=== PATIENT | male | born 1940 | race Caucasian/White ===

== ENCOUNTER 2017-02-14 12:38 | Inpatient (IN) | payer MEDICARE ==
[~2017-02-14] VITALS: Ht 177.8 cm; Wt 70.0 kg
[2017-02-14 12:41] VITALS: BP 130/88; PULSE 120; RESP 20; TEMP 98.4; O2SAT 97
--- NOTE | 2017-02-14 12:49 | PD ---
Physical Exam Time Seen by Provider: 12:48 Narrative 76 y/o male with 2 days of generalized body shakes, L sided ear/facial pain for 3 weeks. Vital signs reviewed. seen at triage desk. Awaiting bed placement. Data Data Last Documented VS Vital Signs Date Time Temp Pulse Resp B/P Pulse Ox O2 Delivery O2 Flow Rate FiO2 02/14/17 12:41 98.4 120 20 130/88 97 Room Air MDM Medical Record Reviewed: Yes Supervised Visit with MAGAN: Rich Philip Feb 14, 2017 12:49
[2017-02-14] MEDS ORDERED: METF500T PO (12:59)
[2017-02-14] MEDS ORDERED: FINA5TAB2 PO (12:59)
[2017-02-14] MEDS ORDERED: LISI10TA3 PO (12:59)
[2017-02-14] MEDS ORDERED: SIMV10TA PO (12:59)
[2017-02-14] MEDS ORDERED: SODIUM CHLORIDE 0.9% FLUSH 10 ML FLUSH IVF PRN (13:15)
[2017-02-14] MEDS ORDERED: SODIUM CHLORID 0.9% 500 ML INJ 500 ML IV ONE (13:15)
--- NOTE | 2017-02-14 13:17 | PD ---
HPI Chief Complaint: Medical Clearance Time Seen by Provider: 13:12 Travel History International Travel<30 days: No Contact w/Intl Traveler<30days: No Traveled to known affect area: No History of Present Illness HPI 76-year-old male presents to the emergency department for evaluation of "shakiness" that started yesterday. Patient states he cannot quit shaking. He states he has never had this happen before. His daughters at bedside. She states she's been treated with multiple antibiotics over the last few months for multiple infections. He had infection in the right ear, left ear, lung infection, urinary tract infection. She states that he was recently treated for otitis externa the left ear with antibiotics. He states he recently follow with Dr. Segundo the infection was gone. She reports left-sided facial pain and submandibular pain and swelling. He denies any shortness of breath. He states he has some intermittent sharp left-sided chest pain that lasts for a minute and goes away over the past 2 days. He denies any chest pain this time. No abdominal pain. No nausea, vomiting, diarrhea. He denies any urinary symptoms. He has history of hypertension, hyperlipidemia, diabetes. Patient denies any other complaints at this time. He states he may have run a fever over the past few days due to chills, but denies any at this time. PFSH Past Medical History Cancer: Yes (SKIN) High Cholesterol: Yes Diabetes: Yes Patient Takes Glucophage: Yes (METFORMIN) Genitourinary: Yes (BPH) Hypertension: Yes Past Surgical History Other Surgery: Yes (SKIN CA REMOVAL) Social History Alcohol Use: No Tobacco Use: No Substance Use: No Allergies-Medications (Allergen,Severity, Reaction): Coded Allergies: No Known Allergies (Unverified , 02/14/17) Reported Meds & Prescriptions Reported Meds & Active Scripts Active Reported Simvastatin 10 Mg Tab 10 Mg PO DAILY Finasteride 5 Mg Tab 5 Mg PO DAILY Do not crush. Lisinopril 10 Mg Tab 10 Mg PO DAILY Metformin (Metformin HCl) 500 Mg Tab 500 Mg PO BIDPC With meals Review of Systems Except as stated in HPI: all other systems reviewed are Neg Physical Exam Narrative GENERAL: Well-nourished, well-developed male patient, ambulatory. Afebrile. SKIN: Focused skin assessment warm/dry. HEAD: Normocephalic. Atraumatic. Patient has induration to the submandibular region. This is tender with palpation of the palate. ENT: Mucosa pink and moist. No erythema or exudates. No uvular edema. No uvular , palatal, or tonsillar deviation. Airway patent. Nasal turbinates appear normal without nasal blood, purulent drainage or septal hematoma. Left ear canal is mildly swollen with purulent drainage. I'm unable to visualize tympanic membrane. EYES: No scleral icterus. No injection or drainage. NECK: Supple, trachea midline. No JVD or lymphadenopathy. CARDIOVASCULAR: Regular rate and rhythm without murmurs, gallops, or rubs. RESPIRATORY: Breath sounds equal bilaterally. No accessory muscle use. Lungs sounds are clear to auscultation. GASTROINTESTINAL: Abdomen soft, non-tender, nondistended. MUSCULOSKELETAL: No cyanosis, or edema. BACK: Nontender without obvious deformity. No CVA tenderness. Data Data Last Documented VS Vital Signs Date Time Temp Pulse Resp B/P Pulse Ox O2 Delivery O2 Flow Rate FiO2 02/14/17 15:00 96 18 154/69 98 Room Air 02/14/17 12:41 98.4 Orders Complete Blood Count With Diff (02/14/17 13:05) Blood Culture (02/14/17 13:05) Group A Rapid Strep Screen (02/14/17 13:05) Ct Soft Tiss Neck W Iv Cont (02/14/17 13:05) Iv Access Insert/Monitor (02/14/17 13:05) Sodium Chloride 0.9% Flush (Ns Flush) (02/14/17 13:15) Comprehensive Metabolic Panel (02/14/17 13:05) Lactic Acid Sepsis Protocol (02/14/17 13:05) Urinalysis - C+S If Indicated (02/14/17 13:05) Chest, Single Ap (02/14/17 ) Creatine Kinase (Cpk) (02/14/17 13:05) Troponin I (02/14/17 13:05) Sodium Chlorid 0.9% 500 Ml Inj (Ns 500 M (02/14/17 13:15) Electrocardiogram (02/14/17 ) Strep Culture (Group A) (02/14/17 13:20) Sodium Chlor 0.9% 1000 Ml Inj (Ns 1000 M (02/14/17 14:00) Ct Thorax/ Chest W Iv Contrast (02/14/17 ) Vancomycin Inj (Vancomycin Inj) (02/14/17 14:30) Piperacil-Tazo 4.5 Gm Premix (Zosyn 4.5 (02/14/17 14:30) Iohexol 350 Inj (Omnipaque 350 Inj) (02/14/17 16:00) Isolation 08,20 (02/14/17 17:38) Equip, Isolation Cart (02/14/17 17:42) Sput[employer] Culture And Stain (02/14/17 17:44) Consult Pulmonology (02/14/17 ) Admit Order (Ed Use Only) (02/14/17 17:49) Labs Laboratory Tests Test 02/14/17 02/14/17 13:15 16:09 White Blood Count 34.6 TH/MM3 Red Blood Count 4.62 MIL/MM3 Hemoglobin 12.4 GM/DL Hematocrit 37.4 % Mean Corpuscular Volume 80.9 FL Mean Corpuscular Hemoglobin 26.8 PG Mean Corpuscular Hemoglobin 33.2 % Concent Red Cell Distribution Width 14.3 % Platelet Count 339 TH/MM3 Mean Platelet Volume 8.1 FL Neutrophils (%) (Auto) 74.8 % Lymphocytes (%) (Auto) 8.5 % Monocytes (%) (Auto) 7.3 % Eosinophils (%) (Auto) 9.2 % Basophils (%) (Auto) 0.2 % Neutrophils # (Auto) 25.9 TH/MM3 Lymphocytes # (Auto) 2.9 TH/MM3 Monocytes # (Auto) 2.5 TH/MM3 Eosinophils # (Auto) 3.2 TH/MM3 Basophils # (Auto) 0.1 TH/MM3 CBC Comment AUTO DIFF Differential Total Cells 100 Counted Neutrophils % (Manual) 55 % Band Neutrophils % 19 % Lymphocytes % 8 % Monocytes % 12 % Eosinophils % 5 % Basophils % 1 % Neutrophils # (Manual) 25.6 TH/MM3 Differential Comment FINAL DIFF MANUAL Platelet Estimate NORMAL Platelet Morphology Comment NORMAL Red Cell Morphology Comment NORMAL Sodium Level 137 MEQ/L Potassium Level 4.1 MEQ/L Chloride Level 102 MEQ/L Carbon Dioxide Level 23.7 MEQ/L Anion Gap 11 MEQ/L Blood Urea Nitrogen 14 MG/DL Creatinine 0.92 MG/DL Estimat Glomerular Filtration 80 ML/MIN Rate Random Glucose 140 MG/DL Lactic Acid Level 4.2 mmol/L 2.2 mmol/L Calcium Level 10.1 MG/DL Total Bilirubin 0.6 MG/DL Aspartate Amino Transf 6 U/L (AST/SGOT) Alanine Aminotransferase 15 U/L (ALT/SGPT) Alkaline Phosphatase 66 U/L Total Creatine Kinase 45 U/L Troponin I LESS THAN 0.02 NG/ML Total Protein 7.6 GM/DL Albumin 3.3 GM/DL Urine Color YELLOW Urine Turbidity CLEAR Urine pH 5.5 Urine Specific [place] 1.021 Urine Protein NEG mg/dL Urine Glucose (UA) NEG mg/dL Urine Ketones NEG mg/dL Urine Occult Blood NEG Urine Nitrite NEG Urine Bilirubin NEG Urine Urobilinogen LESS THAN 2.0 MG/DL Urine Leukocyte Esterase NEG Urine RBC LESS THAN 1 /hpf Urine WBC 1 /hpf Urine Hyaline Casts 3 /lpf Urine Mucus FEW /lpf Microscopic Urinalysis Comment CULT NOT INDICATED MDM Medical Decision Making Medical Screen Exam Complete: Yes Emergency Medical Condition: Yes Medical Record Reviewed: Yes Interpretation(s) Last Impressions Neck CT 02/14/17 1305 Signed Impressions: Service Date/Time: February 15:34 - CONCLUSION: 1. No acute inflammatory changes or abnormal fluid collections identified within the neck. No adenopathy. Aleks Callahan MD Chest X-Ray 02/14/17 0000 Signed Impressions: Service Date/Time: February 13:43 - CONCLUSION: 1. Cavitary mass at the right hilum measuring up to 7 cm in diameter. Further evaluation with chest CT with contrast Aleks Callahan MD Chest CT 02/14/17 0000 Signed Impressions: Service Date/Time: February 15:37 - CONCLUSION: 1. 7.4 cm cavitary mass in first segment right lower lobe with continuous right hilar adenopathy measuring up to 3 cm in diameter. Findings are most characteristic of a cavitary malignancy such as squamous cell carcinoma. There is some interstitial prominence in the right upper lobe and pleural thickening. This could be postinflammatory change but cannot exclude interstitial spread of tumor. Cavitary infection is also in the differential diagnosis. There is underlying moderate to severe emphysema. Aleks Callahan MD Differential Diagnosis Otitis externa versus mastoiditis versus Curry's angina versus sepsis versus UTI versus electrolyte abnormality versus dehydration Narrative Course 76-year-old male presents to the emergency department for evaluation of "shakiness" that started yesterday. He reports left facial pain from otitis externa as well as swelling to the submandibular region. EKG, CBC, CMP, lactic acid, UA, blood cultures 2, CK, troponin, strep swab are ordered and pending. Chest x-ray is ordered and pending. CT of the soft tissue neck with IV contrast is ordered and pending. Patient is given normal saline 1.5 L bolus. EKG shows sinus rhythm, no acute ST changes. CBC shows leukocytosis of 34.6, and neutrophils of 19. Patient is started on vancomycin 1 g IV and Zosyn 4.5 g IV. CMP shows glucose 140. Lactic acid is elevated at 4.2. CK is 45. Troponin is less than 0.02. UA is negative. Strep is negative. Chest x-ray shows cavitary mass at the right hilum measuring up to 7 cm in diameter. Further evaluation with chest CT with contrast. CT of the chest with contrast is ordered and shows 7.4 cm cavitary mass in first segment right lower lobe with continuous right hilar adenopathy measuring up to 3 cm in diameter. Findings are most characteristic of a cavitary malignancy such as squamous cell carcinoma. There is some interstitial prominence in the right upper lobe and pleural thickening. This could be postinflammatory change but cannot exclude interstitial spread of tumor. Cavitary infection is also in the differential diagnosis. There is underlying moderate to severe emphysema. CT soft tissue neck with IV contrast shows no acute inflammatory changes or abnormal fluid collections identified within the neck. No adenopathy,. I spoke to the radiologist regarding CT of the test results. He states he does state that the mass looks more malignant, but if there is any concern for TB, the patient should be placed on isolation. Patient will be placed on airborne isolation. I spoke to Dr. Norton is the patient's primary care physician who will admit the patient. Sepsis Criteria SIRS Criteria (2 or more): Heart rate over 90, WBC > 87314, < 4000 or > 10% bands Sepsis Criteria (SIRS+source): Infect source susp/known Severe Sepsis (+one): Lactate >2 Septic Shock Criteria: Lactic acid >=4 Diagnosis Primary Impression: Cavitary lesion of lung Additional Impression: Sepsis Qualified Code: A41.9 - Sepsis, due to unspecified organism Admitting Information Admitting Physician Requests: Admit Ros RussellP Feb 14, 2017 13:17
[2017-02-14 13:35] LABS: AUTOMATED NEUTROPHIL # 25.9 TH/MM3 (1.8-7.7); BASOPHIL # 0.1 TH/MM3 (0-0.2); BASOPHIL % 0.2 % (0.0-2.0); EOSINOPHIL # 3.2 TH/MM3 (0-0.4); EOSINOPHIL % 9.2 % (0.0-4.0); HEMATOCRIT 37.4 % (39.0-51.0); LYMPH % 8.5 % (9.0-44.0); LYMPHOCYTE # 2.9 TH/MM3 (1.0-4.8); MEAN CELL VOLUME 80.9 FL (80.0-100.0); MEAN CORPUSCULAR HEMOGLOBIN 26.8 PG (27.0-34.0); MEAN CORPUSCULAR HGB CONC 33.2 % (32.0-36.0); MONO % 7.3 % (0.0-8.0); NEUT % 74.8 % (16.0-70.0); PLATELET COUNT 339 TH/MM3 (150-450); RED BLOOD COUNT 4.62 MIL/MM3 (4.50-5.90); RED CELL DISTRIBUTION WIDTH 14.3 % (11.6-17.2); WHITE BLOOD COUNT 34.6 TH/MM3 (4.0-11.0)
[2017-02-14 13:38] LABS: HEMO FLAGS AUTO DIFF
[2017-02-14 13:49] LABS: ANION GAP 11 MEQ/L (5-15); AST (GOT) 6 U/L (15-37); BICARBONATE 23.7 MEQ/L (21.0-32.0); BLOOD UREA NITROGEN 14 MG/DL (7-18); CHLORIDE 102 MEQ/L (98-107); GLOMERULAR FILTRATION RATE 80 ML/MIN (>89); POTASSIUM 4.1 MEQ/L (3.5-5.1); SODIUM (NA) 137 MEQ/L (136-145)
[2017-02-14 13:50] LABS: ALT (GPT) 15 U/L (12-78)
[2017-02-14 13:54] LABS: ALKALINE PHOSPHATASE 66 U/L (45-117); TOTAL BILIRUBIN ADULT 0.6 MG/DL (0.2-1.0)
[2017-02-14 13:55] LABS: CREATINE KINASE 45 U/L (39-308)
[2017-02-14 14:00] VITALS: BP 146/65; PULSE 100; RESP 18; O2SAT 98
[2017-02-14] MEDS ORDERED: SODIUM CHLOR 0.9% 1000 ML INJ 1,000 ML IV ONE (14:00)
--- NOTE | 2017-02-14 14:21 | RADRPT ---
EXAM DATE/TIME: 02/14/2017 13:43 [facility] COMPARISON: No previous studies available for comparison. INDICATIONS : Chest pain for a few days. Tremors today. MEDICAL HISTORY : Hypercholesterolemia. Hypertension Skin cancer. SURGICAL HISTORY : Skin cancer removed from upper left chest. ENCOUNTER: Initial ACUITY: 2 days PAIN SCORE: 2/10 LOCATION: Bilateral chest FINDINGS: There is a 7 cm cavitary mass projecting over the right hilar region. Further evaluation with chest C T is recommended to assess for malignancy. There is probable right hilar adenopathy. Left lung is rel atively clear. There is a right-sided apical pleural thickening and hazy airspace disease in the righ t upper lobe as well. CONCLUSION: 1. Cavitary mass at the right hilum measuring up to 7 cm in diameter. Further evaluation with chest C T with contrast Aleks Callahan MD on February 14, 2017 at 14:17 Board Certified Radiologist. This report was verified electronically.
[2017-02-14] MEDS ORDERED: VANCOMYCIN INJ 1,000 MG in SODIUM CHLOR 0.9% 250 ML INJ 250 ML IV ONE (14:30)
[2017-02-14] MEDS ORDERED: PIPERACIL-TAZO 4.5 GM PREMIX 100 ML IV ONE (14:30)
[2017-02-14 14:32] LABS: BANDS 19 % (0-6); BASOPHILS 1 % (0-2); EOSINOPHILS 5 % (0-4); NEUTROPHIL # MANUAL DIFF 25.6 TH/MM3 (1.8-7.7); PLATELET ESTIMATE SMEAR NORMAL (NORMAL); PLATELET MORPHOLOGY NORMAL (NORMAL); POLYS (SEG NEUTROPHILS) 55 % (16-70); SCAN/DIFF FINAL DIFF MANUAL; WBC DIFF SAMPLE 100
[2017-02-14 15:00] VITALS: BP 154/69; PULSE 96; RESP 18; O2SAT 98
[2017-02-14 15:26] LABS: LACTIC ACID GHOST NOT REPORTABLE
[2017-02-14] MEDS ORDERED: IOHEXOL 350 MG/ML 10 ML VIAL (for RAD DIAG) IV ONE (16:00)
[2017-02-14 17:04] LABS: BLOOD, URINE NEG (NEG); COMMENT (UR) CULT NOT INDICATED; CULTURE IF INDICATED CULT NOT INDICATED; GLUCOSE,URINE NEG (NEG); HYALINE CAST, URINE 3 /lpf (RARE); KETONE, URINE NEG (NEG); MUCUS URINE FEW /lpf (OCC); NITRITE,URINE NEG (NEG); PH, URINE 5.5 (5.0-8.5); URINE COLOR YELLOW (YELLW/STRAW)
--- NOTE | 2017-02-14 17:13 | RADRPT ---
EXAM DATE/TIME: 02/14/2017 15:34 [facility] COMPARISON: CT THORAX W CONTRAST, February 14, 2017, 15:37. INDICATIONS : Swelling to submandibular region. IV CONTRAST: 72 cc Omnipaque 350 (iohexol) IV ; Cumulative dose for multiple exams. RADIATION DOSE: 13.8 CTDIvol (mGy) MEDICAL HISTORY : Benign prostatic hyperplasia, (BPH). Hypertension. Diabetes mellitus type 2.Skin cancer. SURGICAL HISTORY : Skin cancer removed-left upper chest. ENCOUNTER: Initial ACUITY: 1 day PAIN SCALE: 0/10 LOCATION: facial TECHNIQUE: Volumetric scanning of the neck was performed. Using automated exposure control and adjustment of th e mA and/or kV according to patient size, radiation dose was kept as low as reasonably achievable to obtain optimal diagnostic quality images. DICOM format image data is available electronically for r eview and comparison. FINDINGS: No significant inflammatory changes are identified within the neck. The parotid and submandibular gla nds are symmetric. No pathologically enlarged lymph nodes are seen. There is emphysema at the lung apices with parenchymal and pleural scarring. No acute bony abnormalit ies. CONCLUSION: 1. No acute inflammatory changes or abnormal fluid collections identified within the neck. No adenopa thy. Aleks Callahan MD on February 14, 2017 at 17:07 Board Certified Radiologist. This report was verified electronically.
--- NOTE | 2017-02-14 17:19 | RADRPT ---
EXAM DATE/TIME: 02/14/2017 15:37 [facility] COMPARISON: No previous studies available for comparison. INDICATIONS : Intermittent left side chest pain. IV CONTRAST: 72 cc Omnipaque 350 (iohexol) IV ; Cumulative dose for multiple exams. RADIATION DOSE: 6.41 CTDIvol (mGy) MEDICAL HISTORY : Hypertension. Benign prostatic hyperplasia (BPH). Diabetes mellitus type 2.Skin cancer. SURGICAL HISTORY : Skin cancer removed-left chest. ENCOUNTER: Initial ACUITY: 1 day PAIN SCALE: 0/10 LOCATION: Left upper chest TECHNIQUE: Volumetric scanning of the chest was performed. Using automated exposure control and adjustment of t he mA and/or kV according to patient size, radiation dose was kept as low as reasonably achievable to obtain optimal diagnostic quality images. DICOM format image data is available electronically for review and comparison. Follow-up recommendations for incidentally detected pulmonary nodules are based at a minimum on nodul e size and patient risk factors according to Fleischner Society Guidelines. FINDINGS: There is a 7.4 cm cavitary mass in the superior segment of the right lower lobe with wall thickening up to 2.2 cm. There is contiguous right hilar adenopathy measuring up to about 3 cm in diameter. Find ing is most characteristic of a cavitary malignancy such as squamous cell carcinoma. There is severe underlying emphysema. There is some hazy parenchymal opacity and scarring in the right upper lobe wit h apical pleural thickening. This could be related to interstitial spread of tumor. No suspicious masses are identified in the left lung. There is no pleural pericardial effusion. No ac isaiah findings in the upper abdomen. CONCLUSION: 1. 7.4 cm cavitary mass in first segment right lower lobe with continuous right hilar adenopathy raquel uring up to 3 cm in diameter. Findings are most characteristic of a cavitary malignancy such as squam ous cell carcinoma. There is some interstitial prominence in the right upper lobe and pleural thicken ing. This could be postinflammatory change but cannot exclude interstitial spread of tumor. Cavitary infection is also in the differential diagnosis. There is underlying moderate to severe emphysema. Aleks Callahan MD on February 14, 2017 at 17:12 Board Certified Radiologist. This report was verified electronically.
[2017-02-14 18:56] VITALS: BP 170/80; PULSE 96; RESP 18; O2SAT 96
[2017-02-14] MEDS ORDERED: DOCUSATE SODIUM 100 MG CAP PO PRN (20:30)
[2017-02-14] MEDS ORDERED: SODIUM CHLORIDE 0.9% FLUSH 10 ML FLUSH IV FLUSH PRN (20:30)
[2017-02-14] MEDS ORDERED: NALOXONE HCL 0.4 MG/ML AMP IV PRN (20:30)
[2017-02-14] MEDS ORDERED: ACETAMINOPHEN 325 MG TAB PO PRN ×2 (20:30)
--- NOTE | 2017-02-14 21:12 | MB ---
cc: JAMSHID MATIAS DATE OF CONSULTATION 02/14/17 Requested by oRgelio Johnson. REASON FOR CONSULTATION Cavitary lung lesion. HISTORY OF PRESENT ILLNESS Mr. May is a 76-year-old white male with history of hypertension, diabetes mellitus. The patient has not been feeling well for the last two months or so. He says he saw Dr. Norton and was found to have a lung lesion and has been treated as outpatient for UTI and ear infection. He recently saw Dr. Edgar and he has finished course of antibiotics and was told that the ear infection has gotten better. The patient came to the hospital with feeling shakiness and also he has jerky movements going on for the last 2 days. Did not have any nausea or vomiting, not able to bring up any phlegm. No fever or chills. The patient was evaluated in the hospital. He had a CT scan of the chest done which shows 7.4 cm cavitary mass in the first segment of the right lower lobe, possible cavitary malignancy or infection. He had a CT scan of the neck done which showed no acute inflammatory changes. His CBC showed WBC count 34.6, hemoglobin 12.4, hematocrit 37.4, MCV 80, platelet count 339, sodium 137, potassium 4.1, chloride 102, CO2 23, BUN 14, creatinine 0.92. PAST MEDICAL HISTORY Significant for history of hypertension. 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 He had a plastic surgery and skin graft done. MEDICATIONS He is currently takin. Finasteride. 2. Lisinopril 10 milligrams a day. 3. Metformin 500 milligrams twice a day. 4. Albuterol/Atrovent nebulizer treatment. 5. Heparin 5000 q. 12-hour. 6. He had dose of vancomycin and Zosyn. ALLERGIES NO KNOWN DRUG ALLERGIES. SOCIAL HISTORY Has history of smoking which he quit 27-years ago. No alcohol abuse. 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 FAMILY HISTORY He has a daughter who lives here and a son in [place]. REVIEW OF SYSTEMS He has lost about 10 pounds of weight. Denies any night sweats. No exposure to TB. No malignancy. No DVT or pulmonary embolism. PHYSICAL EXAMINATION GENERAL: Pleasant, elderly male not in acute distress. VITAL SIGNS: Blood pressure 170/80, heart rate 96, respirations 18, temperature 98.4. HEENT: Examination pupils are equal and reactive to light. Oral mucosa, nasal mucosa normal. NECK: Supple. JVP not raised. CHEST: Air entry equal. No rhonchi. CARDIOVASCULAR: S1-S2 normal. ABDOMEN: Soft. Nondistended. Bowel sounds are present. EXTREMITIES: No edema. FRENCH PASTRY COOK: He is alert and oriented times three. No focal deficit. IMPRESSION 1. Right lower lobe cavitary mass with ____, possible cavitary malignancy; however, inflammatory or infectious process is not ruled out. Has underlying COPD. 2. Leukocytosis. 3. Recently UTI and ear infection. 4. Hypertension. 5. Diabetes mellitus. PLAN Discussed with the patient and his daughter at the bedside. We will continue his antibioti. Check his sputum for culture sensitivity. Monitor his CBC. If AFB is negative or the cultures are not revealing we will consider bronchoscopy or CT-guided biopsy. Further treatment will depend on the course in the hospital. Thank you for this consultation. MD REBEKAH Uriarte/KEYON /8:41 PM /8:48 PM G[facility]
[2017-02-14] MEDS: SODIUM CHLORIDE 0.9% FLUSH 10 ML FLUSH IV FLUSH SCH (21:53)
[2017-02-14 22:13] VITALS: BP 149/72; PULSE 98; RESP 16; O2SAT 93
[2017-02-14] MEDS: HEPARIN SODIUM - SQ 10,000 UNITS/ML VIAL SQ SCH (22:13)
[2017-02-15] VITALS (7 sets, daily range): BP systolic 125–166; BP diastolic 60–79; PULSE 88–99; RESP 18–20; TEMP 97.5–99.2; O2SAT 92–100
--- NOTE | 2017-02-15 06:55 | HHI.HP ---
History of Present Illness Service Family medicine Primary Care Physician Malcolm Norton, DO Admission Diagnosis cavitary lesion, sepsis Diagnoses: (1) Cavitary lesion of lung Diagnosis: Principal (2) Sepsis Diagnosis: Principal History of Present Illness Patient is a 76-year-old male presents to the emergency department for evaluation of "shakiness" and pain on left side of face. She states she's been treated with multiple antibiotics over the last few months for multiple infections. He had infection in the right ear, left ear, lung infection, urinary tract infection. She states that he was recently treated for otitis externa the left ear with antibiotics. He reports left-sided facial pain and submandibular pain and swelling. He denies any shortness of breath. He denies any chest pain. No abdominal pain. No nausea, vomiting, diarrhea. He denies any urinary symptoms. He has history of hypertension, hyperlipidemia, diabetes. Patient denies any other complaints at this time. He states he may have run a fever over the past few days due to chills. Review of Systems Constitutional: COMPLAINS OF: Fatigue, Chills Ears, nose, mouth, throat: COMPLAINS OF: Throat pain, Hoarseness, Ear Pain, Sinus Pain Respiratory: COMPLAINS OF: Sputum production, DENIES: Cough, Wheezing Cardiovascular: DENIES: Chest pain, Palpitations Gastrointestinal: DENIES: Abdominal pain, Black stools, Constipation, Diarrhea , Nausea, Vomiting Musculoskeletal: DENIES: Back pain Psychiatric: DENIES: Anxiety, Confusion, Depression Past Family Social History Allergies: Coded Allergies: No Known Allergies (Unverified , 02/14/17) Past Medical History HLD Diabetes HTN Past Surgical History skin cancer removal Active Ordered Medications Current Medications Medications (Trade) Dose Ordered Sig/Joceline Route Start Time Stop Time Status Last Admin (Tylenol) 650 mg Q4H PRN PO 02/14/17 20:30 (Zofran Inj) 4 mg Q6H PRN IV 02/14/17 20:30 (Colace) 100 mg BID PRN PO 02/14/17 20:30 (NS Flush) 2 ml UNSCH PRN IV FLUSH 02/14/17 20:30 (NS Flush) 2 ml BID IV FLUSH 02/14/17 21:00 02/15/17 09:22 (Heparin Inj) 5,000 units Q12H SQ 02/14/17 22:00 02/15/17 09:20 (Narcan Inj) 0.4 mg UNSCH PRN IV 02/14/17 20:30 (Proscar) 5 mg DAILY PO 02/15/17 09:00 02/15/17 09:17 (Prinivil) 10 mg DAILY PO 02/15/17 09:00 02/15/17 09:21 (Glucophage) 500 mg BIDPC PO 02/15/17 09:00 Pravastatin Sodium 20 mg 20 mg DAILY PO 02/15/17 09:00 02/15/17 09:20 Pharmacy Profile Note 0 ml @ 0 mls/hr UNSCH OTHER 02/15/17 07:00 Vancomycin HCl 1000 mg/Sodium Chloride 250 ml @ 250 mls/hr Q24H IV 02/15/17 16:00 (Zosyn 3.375 Gm Premix) 50 ml @ 100 mls/hr Q8H IV 02/15/17 09:00 02/15/17 09:22 (Percocet 5-325 Mg) 2 tab Q6H PRN PO 02/15/17 08:00 02/15/17 09:22 Family History Mother and father with heart disease Social History Quit smoking in 1995 ETOH infrequently Lives alone Retired Physical Exam Vital Signs Vital Signs Date Time Temp Pulse Resp B/P Pulse Ox O2 Delivery O2 Flow Rate FiO2 02/15/17 04:46 99.2 90 18 159/79 95 02/15/17 01:37 98.9 96 18 166/79 95 02/14/17 22:13 98 16 149/72 93 Room Air 02/14/17 18:56 96 18 170/80 96 Room Air 02/14/17 15:00 96 18 154/69 98 Room Air 02/14/17 14:00 100 18 146/65 98 Room Air 02/14/17 12:57 22 02/14/17 12:41 98.4 120 20 130/88 97 Room Air Physical Exam GENERAL: Alert and cooperative. Shaking at times SKIN: No rashes, ecchymoses or lesions. Cool and dry. EYES: Pupils equal round and reactive. No injection or drainage. ENT: Nose without bleeding, purulent drainage or septal hematoma. Airway patent. NECK: Trachea midline. Supple, nontender, no meningeal signs. CARDIOVASCULAR: Regular rate and rhythm without murmurs, gallops, or rubs. RESPIRATORY: Clear to auscultation. Breath sounds equal bilaterally. No wheezes , rales, or rhonchi. GASTROINTESTINAL: Abdomen soft, non-tender, nondistended. No guarding. MUSCULOSKELETAL: Extremities without clubbing, cyanosis, or edema. No joint tenderness, effusion, or edema noted. No calf tenderness. Negative Homans sign bilaterally. NEUROLOGICAL: Awake and alert. Normal speech. Laboratory Laboratory Tests Test 02/14/17 02/14/17 13:15 16:09 White Blood Count 34.6 Red Blood Count 4.62 Hemoglobin 12.4 Hematocrit 37.4 Mean Corpuscular Volume 80.9 Mean Corpuscular Hemoglobin 26.8 Mean Corpuscular Hemoglobin 33.2 Concent Red Cell Distribution Width 14.3 Platelet Count 339 Mean Platelet Volume 8.1 Neutrophils (%) (Auto) 74.8 Lymphocytes (%) (Auto) 8.5 Monocytes (%) (Auto) 7.3 Eosinophils (%) (Auto) 9.2 Basophils (%) (Auto) 0.2 Neutrophils # (Auto) 25.9 Lymphocytes # (Auto) 2.9 Monocytes # (Auto) 2.5 Eosinophils # (Auto) 3.2 Basophils # (Auto) 0.1 CBC Comment AUTO DIFF Differential Total Cells 100 Counted Neutrophils % (Manual) 55 Band Neutrophils % 19 Lymphocytes % 8 Monocytes % 12 Eosinophils % 5 Basophils % 1 Neutrophils # (Manual) 25.6 Differential Comment FINAL DIFF MANUAL Platelet Estimate NORMAL Platelet Morphology Comment NORMAL Red Cell Morphology Comment NORMAL Sodium Level 137 Potassium Level 4.1 Chloride Level 102 Carbon Dioxide Level 23.7 Anion Gap 11 Blood Urea Nitrogen 14 Creatinine 0.92 Estimat Glomerular Filtration 80 Rate Random Glucose 140 Lactic Acid Level 4.2 2.2 Calcium Level 10.1 Total Bilirubin 0.6 Aspartate Amino Transf 6 (AST/SGOT) Alanine Aminotransferase 15 (ALT/SGPT) Alkaline Phosphatase 66 Total Creatine Kinase 45 Troponin I LESS THAN 0.02 Total Protein 7.6 Albumin 3.3 Urine Color YELLOW Urine Turbidity CLEAR Urine pH 5.5 Urine Specific [place] 1.021 Urine Protein NEG Urine Glucose (UA) NEG Urine Ketones NEG Urine Occult Blood NEG Urine Nitrite NEG Urine Bilirubin NEG Urine Urobilinogen LESS THAN 2.0 Urine Leukocyte Esterase NEG Urine RBC LESS THAN 1 Urine WBC 1 Urine Hyaline Casts 3 Urine Mucus FEW Microscopic Urinalysis Comment CULT NOT INDICATED Date/Time Procedure Status Source Growth 02/14/17 13:20 Group A Streptococcus Screen ([facility]) - Final Complete Throat 02/14/17 13:20 Group A Streptococcus Screen Received Throat Pending 02/14/17 13:15 Aerobic Blood Culture Received Blood Peripheral Pending 02/14/17 13:15 Anaerobic Blood Culture Received Blood Peripheral Pending Result Diagram: 02/14/17 1315 02/14/17 1315 Imaging Last [address] 02/14/17 1305 Signed Impressions: Service Date/Time: February 15:34 - CONCLUSION: 1. No acute inflammatory changes or abnormal fluid collections identified within the neck. No adenopathy. Aleks Callahan MD Chest X-Ray 02/14/17 0000 Signed Impressions: Service Date/Time: February 13:43 - CONCLUSION: 1. Cavitary mass at the right hilum measuring up to 7 cm in diameter. Further evaluation with chest CT with contrast Aleks Callahan MD Chest CT 02/14/17 0000 Signed Impressions: Service Date/Time: February 15:37 - CONCLUSION: 1. 7.4 cm cavitary mass in first segment right lower lobe with continuous right hilar adenopathy measuring up to 3 cm in diameter. Findings are most characteristic of a cavitary malignancy such as squamous cell carcinoma. There is some interstitial prominence in the right upper lobe and pleural thickening. This could be postinflammatory change but cannot exclude interstitial spread of tumor. Cavitary infection is also in the differential diagnosis. There is underlying moderate to severe emphysema. Aleks Callahan MD Assessment and Plan Problem List: (1) Cavitary lesion of lung Status: Acute Plan: Pulmonary consulted Vancomycin and Zosyn continued and ID consulted WBC on admission elevated at 34.6 Right lower love cavity mass. Possible cavitary malignancy however inflammatory or infectious process. Sputum culture ordered (2) Sepsis Status: Acute Plan: WBC elevated at 34.7. Results pending today. Lactic acid elevated. ID consulted (3) Hypertension Status: Acute Plan: Will continue lisinopril. B/P 125/65 (4) Diabetes mellitus Status: Acute Plan: Blood sugars ordered AC and HS. Metformin on hold. SS ordered as needed (5) HLD (hyperlipidemia) Status: Acute Plan: Continue statin. Assessment and Plan Assessment and plan discussed with Dr. Norton Discussed Condition With Nursing Physician Attestation I and the WATER [employer]ERRY OPERATOR have both examined this patient and reviewed this note and I agree this findings and plan of care. Malcolm Norton DO Problem Qualifiers (1) Sepsis: Qualified Code: A41.9 - Sepsis, due to unspecified organism Cira Eldridge [facility] Feb 15, 2017 06:55
[2017-02-15] MEDS ORDERED: Vancomycin Consult Pharmacy 1 EA OTHER SCH (07:00)
[2017-02-15] MEDS: RESP: ALBUTEROL 2.5 MG/IPRATROPIUM 0.5 MG NEB (SCH) NEB ×4 (07:33→19:54)
[2017-02-15] MEDS ORDERED: metFORMIN HCL 500 MG TAB PO SCH (09:00)
[2017-02-15] MEDS ORDERED: PIPERACIL-TAZO 3.375 GM PREMIX 50 ML IV SCH (09:00)
[2017-02-15] MEDS: FINASTERIDE 5 MG TAB PO SCH (09:17)
[2017-02-15] MEDS: PRAVASTATIN SOD 20 MG TAB PO SCH (09:20)
[2017-02-15] MEDS: HEPARIN SODIUM - SQ 10,000 UNITS/ML VIAL SQ SCH ×2 (09:20→20:48)
[2017-02-15] MEDS: LISINOPRIL 10 MG TAB PO SCH (09:21)
[2017-02-15] MEDS: oxyCODONE/ACETAMINOPHEN 5 MG/325 MG TAB PO PRN ×2 (09:22→20:47)
[2017-02-15] MEDS: SODIUM CHLORIDE 0.9% FLUSH 10 ML FLUSH IV FLUSH SCH ×2 (09:22→20:47)
--- NOTE | 2017-02-15 09:32 | EKG ---
Date Performed: 02/14/2017 Time Performed: 13:53:15 PTAGE: 76 years EKG: Sinus rhythm NORMAL ECG NO PREVIOUS TRACING DOCTOR: Pavan Grijalva Interpretating Date/Time 02/15/2017 09:30:51
[2017-02-15] MEDS ORDERED: GLUCAGON 1 MG/ML VIAL OTHER PRN (10:15)
[2017-02-15] MEDS ORDERED: DEXTROSE 50% IN WATER 50 ML VIAL(D50) IV PRN (10:15)
--- NOTE | 2017-02-15 11:26 | PD.CONS ---
History of Present Illness Service Infectious disease Consult Requested By Dr. Norton Reason for Consult Evaluate patient with cavitary lesion in the right lung Primary Care Physician Malcolm Norton, DO Diagnoses: History of Present Illness Patient seen and examined. Records reviewed. Patient is a 76-year-old male, presented to the hospital complaining of shakiness as well as pain on the left side of his head. Patient apparently has been treated for multiple infections including bilateral ear infection, pneumonia, and UTI. Patient has occasional coughing with minimal sputum production. On presentation he was afebrile. His WBCs 34,000. He had a chest x-ray with an abnormality in the right lung, and CT of the chest showed evidence of cavitary lesion in the right lung with adenopathy. Patient stated when he had some cough a couple months ago, he had a chest x-ray done and he was told that there is a finding on his right lung. He was given antibiotics for treatment of pneumonia. Patient denies any nausea or vomiting, or any syncopal episode. He denies any fever or chills or sweats. He is not had any significant weight loss. No urinary complaint, no GI complaints. Patient has not lived overseas. He has not had any exposure to anyone with known tuberculosis. Patient had recently been seen near specialist, and looked at his ears and he was told that they were all clear. Patient complains of pain on his left ear, and it involves the whole left side of his head all the way to the neck. And occasionally he would have some swallowing difficulty. Infectious disease consultation has been requested to evaluate the patient with cavitary lesion in the right lung. Review of Systems Constitutional: DENIES: Fever, Chills, Change in appetite Eyes: DENIES: Eye pain Ears, nose, mouth, throat: COMPLAINS OF: Throat pain, Ear Pain, DENIES: Oral lesions, Running Nose, Sinus Pain Respiratory: COMPLAINS OF: Cough, DENIES: Hemoptysis, Sputum production, Shortness of breath Cardiovascular: DENIES: Chest pain, Palpitations Gastrointestinal: COMPLAINS OF: Difficulty Swallowing, DENIES: Abdominal pain , Diarrhea, Nausea, Vomiting Genitourinary: DENIES: Urgency, Dysuria Musculoskeletal: COMPLAINS OF: Back pain, DENIES: Joint pain, Joint Swelling Integumentary: DENIES: Rash Hematologic/lymphatic: DENIES: Bruising, Lymphadenopathy Neurologic: DENIES: Headache Psychiatric: DENIES: Confusion, Hallucinations Past Family Social History Allergies: Coded Allergies: No Known Allergies (Unverified , 02/14/17) Past Medical History Hypertension Hyperlipidemia Melanoma COPD Past Surgical History Removal of skin cancer Active Ordered Medications Tylenol Albuterol Colace Pepcid Proscar Heparin Insulin Prinivil Zofran Percocet Zosyn Vancomycin Pravachol Family History Noncontributory Social History Quit smoking in 1995, used to smoke heavily ETOH infrequently Lives alone Retired No illicit drugs Physical Exam Vital Signs Vital Signs Date Time Temp Pulse Resp B/P Pulse Ox O2 Delivery O2 Flow Rate FiO2 02/15/17 08:44 97.8 95 20 125/65 96 02/15/17 04:46 99.2 90 18 159/79 95 02/15/17 01:37 98.9 96 18 166/79 95 02/14/17 22:13 98 16 149/72 93 Room Air 02/14/17 18:56 96 18 170/80 96 Room Air 02/14/17 15:00 96 18 154/69 98 Room Air 02/14/17 14:00 100 18 146/65 98 Room Air 02/14/17 12:57 22 02/14/17 12:41 98.4 120 20 130/88 97 Room Air Physical Exam GENERAL: Patient is a well-nourished, well-developed male, awake and alert, not in respiratory distress. SKIN: Warm and dry. No generalized rash, no ecchymoses and no evidence of embolic lesions. HEAD: Atraumatic. Normocephalic. No temporal wasting, or tenderness. EYES: [place] conjunctiva. No petechia or hemorrhage. Pupils equal, round and reactive to light. Extraocular movements full and intact. No scleral icterus. No injection or drainage. EARS, NOSE AND THROAT: Nose without bleeding or purulent nasal discharge. No sinus tenderness. Mucous membranes pink and moist. No oral lesions noted. No exudate. No oral thrush. No ear drainage, no tenderness, or redness NECK: Trachea midline. Supple and not tender, no meningeal signs. No lymphadenopathy, no swelling CARDIOVASCULAR: Regular rate and rhythm. No murmurs, rubs or gallops heard RESPIRATORY: Clear to auscultation. Breath sounds equal bilaterally. No rales , wheezing or rhonchi ABDOMEN: Soft, non-tender, nondistended. Bowel sounds present and normoactive. No guarding. No rebound. No organomegaly. EXTREMITIES: No clubbing, cyanosis, or edema.No joint effusion, has good ROM. No calf tenderness. Well perfused and warm. NEUROLOGICAL: Awake and alert. Cranial nerves grossly intact. Motor grossly within normal limits. PSYCHIATRIC: Normal affect, calm and cooperative. LINE: No evidence of infection Laboratory Laboratory Tests Test 02/14/17 02/14/17 13:15 16:09 White Blood Count 34.6 Red Blood Count 4.62 Hemoglobin 12.4 Hematocrit 37.4 Mean Corpuscular Volume 80.9 Mean Corpuscular Hemoglobin 26.8 Mean Corpuscular Hemoglobin 33.2 Concent Red Cell Distribution Width 14.3 Platelet Count 339 Mean Platelet Volume 8.1 Neutrophils (%) (Auto) 74.8 Lymphocytes (%) (Auto) 8.5 Monocytes (%) (Auto) 7.3 Eosinophils (%) (Auto) 9.2 Basophils (%) (Auto) 0.2 Neutrophils # (Auto) 25.9 Lymphocytes # (Auto) 2.9 Monocytes # (Auto) 2.5 Eosinophils # (Auto) 3.2 Basophils # (Auto) 0.1 CBC Comment AUTO DIFF Differential Total Cells 100 Counted Neutrophils % (Manual) 55 Band Neutrophils % 19 Lymphocytes % 8 Monocytes % 12 Eosinophils % 5 Basophils % 1 Neutrophils # (Manual) 25.6 Differential Comment FINAL DIFF MANUAL Platelet Estimate NORMAL Platelet Morphology Comment NORMAL Red Cell Morphology Comment NORMAL Sodium Level 137 Potassium Level 4.1 Chloride Level 102 Carbon Dioxide Level 23.7 Anion Gap 11 Blood Urea Nitrogen 14 Creatinine 0.92 Estimat Glomerular Filtration 80 Rate Random Glucose 140 Lactic Acid Level 4.2 2.2 Calcium Level 10.1 Total Bilirubin 0.6 Aspartate Amino Transf 6 (AST/SGOT) Alanine Aminotransferase 15 (ALT/SGPT) Alkaline Phosphatase 66 Total Creatine Kinase 45 Troponin I LESS THAN 0.02 Total Protein 7.6 Albumin 3.3 Urine Color YELLOW Urine Turbidity CLEAR Urine pH 5.5 Urine Specific [place] 1.021 Urine Protein NEG Urine Glucose (UA) NEG Urine Ketones NEG Urine Occult Blood NEG Urine Nitrite NEG Urine Bilirubin NEG Urine Urobilinogen LESS THAN 2.0 Urine Leukocyte Esterase NEG Urine RBC LESS THAN 1 Urine WBC 1 Urine Hyaline Casts 3 Urine Mucus FEW Microscopic Urinalysis Comment CULT NOT INDICATED Date/Time Procedure Status Source Growth 02/15/17 09:30 Gram Stain Received Sputum Expectorated Sputum Pending 02/15/17 09:30 Sputum Culture Received Sputum Expectorated Sputum Pending 02/15/17 09:30 Acid Fast Stain Received Sputum Expectorated Sputum Pending 02/15/17 09:30 Mycobacterial Culture Received Sputum Expectorated Sputum Pending 02/14/17 13:20 Group A Streptococcus Screen ([facility]) - Final Complete Throat 02/14/17 13:20 Group A Streptococcus Screen Received Throat Pending 02/14/17 13:15 Aerobic Blood Culture - Preliminary Resulted Blood Peripheral NO GROWTH IN 1 DAY 02/14/17 13:15 Anaerobic Blood Culture - Preliminary Resulted Blood Peripheral NO GROWTH IN 1 DAY Result Diagram: 02/14/17 1315 02/14/17 1315 Imaging RADIOLOGY STUDIES/FILMS REVIEWED Last Impressions Neck CT 02/14/17 1305 Signed Impressions: Service Date/Time: February 15:34 - CONCLUSION: 1. No acute inflammatory changes or abnormal fluid collections identified within the neck. No adenopathy. Aleks Callahan MD Chest X-Ray 02/14/17 0000 Signed Impressions: Service Date/Time: February 13:43 - CONCLUSION: 1. Cavitary mass at the right hilum measuring up to 7 cm in diameter. Further evaluation with chest CT with contrast Aleks Callahan MD Chest CT 02/14/17 0000 Signed Impressions: Service Date/Time: February 15:37 - CONCLUSION: 1. 7.4 cm cavitary mass in first segment right lower lobe with continuous right hilar adenopathy measuring up to 3 cm in diameter. Findings are most characteristic of a cavitary malignancy such as squamous cell carcinoma. There is some interstitial prominence in the right upper lobe and pleural thickening. This could be postinflammatory change but cannot exclude interstitial spread of tumor. Cavitary infection is also in the differential diagnosis. There is underlying moderate to severe emphysema. Aleks Callahan MD Assessment and Plan Assessment and Plan IMPRESSION Cavitary lesion RLL, with adenopathy, ?malignancy vs infection - TB typically upper lobes - concern with CA especially with history of smoking COPD Pain L side of head/ear and neck - CT neck ok - ?radiation pain,, ?cervical, ?occipital RECOMMENDATION Will likely need broch TB quantiferon \TB PCR Follow C/S Agree with current Abx - Zosyn and Mari Will make further recommendation once work-up completed Thank you for this consultation Discussed Condition With D/W RN Explained plan to the patient Loraine Orr MD Feb 15, 2017 11:26
[2017-02-15 12:31] LABS: AUTOMATED NEUTROPHIL # 25.3 TH/MM3 (1.8-7.7); BASOPHIL # 0.1 TH/MM3 (0-0.2); BASOPHIL % 0.2 % (0.0-2.0); EOSINOPHIL # 2.5 TH/MM3 (0-0.4); EOSINOPHIL % 7.8 % (0.0-4.0); HEMATOCRIT 36.6 % (39.0-51.0); LYMPH % 5.3 % (9.0-44.0); LYMPHOCYTE # 1.7 TH/MM3 (1.0-4.8); MEAN CELL VOLUME 83.2 FL (80.0-100.0); MEAN CORPUSCULAR HEMOGLOBIN 26.3 PG (27.0-34.0); MEAN CORPUSCULAR HGB CONC 31.6 % (32.0-36.0); MONO % 7.1 % (0.0-8.0); NEUT % 79.6 % (16.0-70.0); PLATELET COUNT 336 TH/MM3 (150-450); RED CELL DISTRIBUTION WIDTH 14.1 % (11.6-17.2); WHITE BLOOD COUNT 31.7 TH/MM3 (4.0-11.0)
[2017-02-15 12:32] LABS: HEMO FLAGS AUTO DIFF
[2017-02-15] MEDS: INSULIN ASPART SUPPLEMENTAL SCALE SQ SCH ×3 (12:41→20:36)
[2017-02-15 12:52] LABS: ALT (GPT) 12 U/L (12-78); ANION GAP 10 MEQ/L (5-15); AST (GOT) 10 U/L (15-37); BICARBONATE 27.7 MEQ/L (21.0-32.0); BLOOD UREA NITROGEN 8 MG/DL (7-18); CHLORIDE 102 MEQ/L (98-107); GLOMERULAR FILTRATION RATE 105 ML/MIN (>89); POTASSIUM 4.5 MEQ/L (3.5-5.1); SODIUM (NA) 140 MEQ/L (136-145)
[2017-02-15 12:54] LABS: ALKALINE PHOSPHATASE 59 U/L (45-117); TOTAL BILIRUBIN ADULT 0.8 MG/DL (0.2-1.0)
[2017-02-15 13:08] LABS: BANDS 15 % (0-6); EOSINOPHILS 6 % (0-4); NEUTROPHIL # MANUAL DIFF 27.9 TH/MM3 (1.8-7.7); POLYS (SEG NEUTROPHILS) 73 % (16-70); WBC DIFF SAMPLE 100
[2017-02-15 13:09] LABS: PLATELET ESTIMATE SMEAR NORMAL (NORMAL); PLATELET MORPHOLOGY NORMAL (NORMAL); SCAN/DIFF FINAL DIFF MANUAL
[2017-02-15] MEDS: PIPERACIL-TAZO 3.375 GM PREMIX 50 ML IV SCH ×2 (15:04→20:47)
[2017-02-15] MEDS: VANCOMYCIN INJ 1,250 MG in SODIUM CHLOR 0.9% 250 ML INJ 250 ML IV SCH (15:04)
[2017-02-15] MEDS ORDERED: VANCOMYCIN INJ 1,000 MG in SODIUM CHLOR 0.9% 250 ML INJ 250 ML IV SCH (16:00)
--- NOTE | 2017-02-15 17:44 | HHI.PR ---
Subjective Remarks 76 YOWM with RLL cavitary lesion, DM,HTN feels better No fever no chills Boby ID input Objective Vital Signs Vital Signs Date Time Temp Pulse Resp B/P Pulse Ox O2 Delivery O2 Flow Rate FiO2 02/15/17 16:31 98.1 91 20 129/60 92 02/15/17 12:25 88 02/15/17 12:24 97.5 95 20 147/69 97 02/15/17 08:44 97.8 95 20 125/65 96 02/15/17 04:46 99.2 90 18 159/79 95 02/15/17 01:37 98.9 96 18 166/79 95 02/14/17 22:13 98 16 149/72 93 Room Air 02/14/17 18:56 96 18 170/80 96 Room Air I/O 02/14/17 02/14/17 02/14/17 02/15/17 02/15/17 02/15/17 07:00 15:00 23:00 07:00 15:00 23:00 Intake Total 236 ml Output Total 700 ml 600 ml 500 ml 350 ml Balance -700 ml -600 ml -500 ml -114 ml Intake Oral 236 ml Output Urine Total 700 ml 600 ml 500 ml 350 ml Result Diagram: 02/15/17 1055 02/15/17 1059 Objective Remarks GENERAL: MBMN WM,NAD SKIN: Warm and dry. HEAD: Normocephalic. EYES: No scleral icterus. No injection or drainage. NECK: Supple, trachea midline. No JVD or lymphadenopathy. CARDIOVASCULAR: Regular rate and rhythm without murmurs, gallops, or rubs. RESPIRATORY: Breath sounds equal bilaterally. No accessory muscle use. GASTROINTESTINAL: Abdomen soft, non-tender, nondistended. MUSCULOSKELETAL: No cyanosis, or edema. BACK: Nontender without obvious deformity. No CVA tenderness. A/P Assessment and Plan RLL Cavitary lesion, Malig vs TB vs infection COPD DM HTN PLAN: Abx per ID Sputum PCR Quantiferon test If above negative,, will need bronch Henri Harrison MD Feb 15, 2017 17:44
[2017-02-15] MEDS: FAMOTIDINE 20 MG TAB PO SCH (20:48)
[2017-02-16 01:55] VITALS: BP 118/56; PULSE 83; RESP 18; TEMP 98.2; O2SAT 100
[2017-02-16] MEDS: PIPERACIL-TAZO 3.375 GM PREMIX 50 ML IV SCH ×4 (02:42→21:42)
[2017-02-16 04:20] VITALS: BP 120/52; PULSE 82; RESP 18; TEMP 98.3; O2SAT 100
[2017-02-16] MEDS: oxyCODONE/ACETAMINOPHEN 5 MG/325 MG TAB PO PRN ×3 (05:47→22:25)
[2017-02-16] MEDS: INSULIN ASPART SUPPLEMENTAL SCALE SQ SCH ×4 (06:35→21:43)
[2017-02-16 08:17] VITALS: BP 179/77; PULSE 92; RESP 18; TEMP 97.9; O2SAT 93
[2017-02-16] MEDS: RESP: ALBUTEROL 2.5 MG/IPRATROPIUM 0.5 MG NEB (SCH) NEB ×4 (08:42→20:00)
[2017-02-16] MEDS ORDERED: PNEUMOCOCCAL POLYVALENT INJ 25 MCG/0.5 ML SYR IM ONE (09:00)
[2017-02-16] MEDS ORDERED: INFLUENZA VIRUS VACCINE (QUADRIVALENT) 0.5 ML SYR IM ONE (09:00)
[2017-02-16 09:25] VITALS: PULSE 98
[2017-02-16] MEDS: PRAVASTATIN SOD 20 MG TAB PO SCH (09:27)
[2017-02-16] MEDS: FINASTERIDE 5 MG TAB PO SCH (09:27)
[2017-02-16] MEDS: FAMOTIDINE 20 MG TAB PO SCH ×2 (09:27→21:42)
[2017-02-16] MEDS: SODIUM CHLORIDE 0.9% FLUSH 10 ML FLUSH IV FLUSH SCH ×2 (09:27→21:43)
[2017-02-16] MEDS: HEPARIN SODIUM - SQ 10,000 UNITS/ML VIAL SQ SCH ×2 (09:27→21:42)
[2017-02-16] MEDS: LISINOPRIL 10 MG TAB PO SCH (09:28)
[2017-02-16 09:37] LABS: HEMATOCRIT 39.6 % (39.0-51.0); MEAN CELL VOLUME 81.8 FL (80.0-100.0); MEAN CORPUSCULAR HGB CONC 31.7 % (32.0-36.0); PLATELET COUNT 340 TH/MM3 (150-450); RED BLOOD COUNT 4.84 MIL/MM3 (4.50-5.90); RED CELL DISTRIBUTION WIDTH 14.1 % (11.6-17.2); WHITE BLOOD COUNT 30.8 TH/MM3 (4.0-11.0)
[2017-02-16 09:41] LABS: HEMO FLAGS AUTO DIFF
[2017-02-16 11:00] LABS: BANDS 10 % (0-6); EOSINOPHILS 9 % (0-4); NEUTROPHIL # MANUAL DIFF 25.3 TH/MM3 (1.8-7.7); POLYS (SEG NEUTROPHILS) 72 % (16-70); WBC DIFF SAMPLE 100
[2017-02-16 11:03] LABS: PLATELET ESTIMATE SMEAR NORMAL (NORMAL); PLATELET MORPHOLOGY NORMAL (NORMAL); SCAN/DIFF FINAL DIFF MANUAL; TOXIC VACUOLATION PRESENT (NONE SEEN)
[2017-02-16 11:10] LABS: BICARBONATE 24.8 MEQ/L (21.0-32.0); POTASSIUM 3.8 MEQ/L (3.5-5.1)
[2017-02-16 12:27] VITALS: BP 149/69; PULSE 84; RESP 18; TEMP 94.7; O2SAT 93
--- NOTE | 2017-02-16 14:39 | HHI.PR ---
Subjective Remarks restring quietly proclaims dysphagia will have speech eval Objective Vital Signs Date Time Temp Pulse Resp B/P Pulse Ox O2 Delivery O2 Flow Rate FiO2 02/16/17 12:27 94.7 84 18 149/69 93 02/16/17 09:25 98 02/16/17 08:17 97.9 92 18 179/77 93 02/16/17 04:20 98.3 82 18 120/52 100 02/16/17 01:55 98.2 83 18 118/56 100 02/15/17 21:50 98.1 99 20 152/64 100 02/15/17 16:31 98.1 91 20 129/60 92 I/O 02/15/17 02/15/17 02/15/17 02/16/17 02/16/17 02/16/17 07:00 15:00 23:00 07:00 15:00 23:00 Intake Total 236 ml Output Total 600 ml 500 ml 350 ml Balance -600 ml -500 ml -114 ml Intake Oral 236 ml Output Urine Total 600 ml 500 ml 350 ml # Voids 3 Result Diagram: 02/16/17 0907 02/16/17 0907 Imaging Last [address] 02/14/17 1305 Signed Impressions: Service Date/Time: February 15:34 - CONCLUSION: 1. No acute inflammatory changes or abnormal fluid collections identified within the neck. No adenopathy. Aleks Callahan MD Chest X-Ray 02/14/17 0000 Signed Impressions: Service Date/Time: February 13:43 - CONCLUSION: 1. Cavitary mass at the right hilum measuring up to 7 cm in diameter. Further evaluation with chest CT with contrast Aleks Callahan MD Chest CT 02/14/17 0000 Signed Impressions: Service Date/Time: February 15:37 - CONCLUSION: 1. 7.4 cm cavitary mass in first segment right lower lobe with continuous right hilar adenopathy measuring up to 3 cm in diameter. Findings are most characteristic of a cavitary malignancy such as squamous cell carcinoma. There is some interstitial prominence in the right upper lobe and pleural thickening. This could be postinflammatory change but cannot exclude interstitial spread of tumor. Cavitary infection is also in the differential diagnosis. There is underlying moderate to severe emphysema. Aleks Callahan MD Procedures GENERAL: Well-nourished, well-developed patient. SKIN: Warm and dry. HEAD: Normocephalic. EYES: No scleral icterus. No injection or drainage. NECK: Supple, trachea midline. No JVD or lymphadenopathy. CARDIOVASCULAR: Regular rate and rhythm without murmurs, gallops, or rubs. RESPIRATORY: Breath sounds with dullness and rhonchi bilaterallyNo accessory muscle use. GASTROINTESTINAL: Abdomen soft, non-tender, nondistended. EXTREMITIES: No cyanosis, or edema. NEUROLOGICAL: Awake, alert, and oriented x 3. Non-focal. Objective Remarks GENERAL:frail white male patient. SKIN: Warm and dry. HEAD: Normocephalic. EYES: No scleral icterus. No injection or drainage. NECK: Supple, trachea midline. No JVD or lymphadenopathy. CARDIOVASCULAR: Regular rate and rhythm without murmurs, gallops, or rubs. RESPIRATORY: Breath sounds rhonchi throughout GASTROINTESTINAL: Abdomen soft, non-tender, nondistended. EXTREMITIES: No cyanosis, or edema. NEUROLOGICAL: Awake, alert, and oriented x 3. Non-focal. . Medications and IVs Inpatient Medications Acetaminophen (Tylenol) 650 mg Q4H PRN PO TEMP > 100.4; Start 02/14/17 at 20:30 ; Stop 02/14/17 at 21:46; Status DC Albuterol/ Ipratropium 1 ampule 1 ampule Q4HR WHILE AWAKE NEB NEB Last administered on 02/16/17 12:08; Start 02/15/17 at 08:00 Dextrose (D50w (Vial) Inj) 50 ml UNSCH PRN IV HYPOGLYCEMIA-SEE COMMENTS; Start 02/15/17 at 10:15 Docusate Sodium (Colace) 100 mg BID PRN PO CONSTIPATION; Start 02/14/17 at 20:30 Famotidine 20 mg 20 mg BID PO Last administered on 02/16/17 09:27; Start at 21:00 Finasteride (Proscar) 5 mg DAILY PO Last administered on 02/16/17 09:27; Start 02/15/17 at 09:00 Glucagon (Glucagon Inj) 1 mg UNSCH PRN OTHER HYPOGLYCEMIA-SEE COMMENTS; Start 02/15/17 at 10:15 Heparin Sodium (Porcine) (Heparin Inj) 5,000 units Q12H SQ Last administered on 02/16/17 09:27; Start 02/14/17 at 22:00 Insulin Aspart (NovoLOG SUPPLEMENTAL SCALE) 1 ACHS SLIDING SCALE SQ Last administered on 02/16/17 12:09; Start 02/15/17 at 11:00 Lisinopril (Prinivil) 10 mg DAILY PO Last administered on 02/16/17 09:28; Start 02/15/17 at 09:00 Metformin HCl (Glucophage) 500 mg BIDPC PO ; Start 02/15/17 at 09:00; Status Hold Miscellaneous Information SPECIFIC LAB TO BE HENNY... ONCE ONCE .XX ; Start at 15:45; Stop 02/17/17 at 15:46 Naloxone HCl (Narcan Inj) 0.4 mg UNSCH PRN IV SEE LABEL COMMENTS; Start at 20:30 Ondansetron HCl (Zofran Inj) 4 mg Q6H PRN IV NAUSEA; Start 02/14/17 at 20:30 Oxycodone/ Acetaminophen (Percocet 5-325 Mg) 2 tab Q6H PRN PO PAIN SCALE 4 TO 10 Last administered on 02/16/17 11:59; Start 02/15/17 at 08:00 Pharmacy Profile Note 0 ml @ 0 mls/hr UNSCH OTHER ; Start 02/15/17 at 07:00 Piperacillin Sod/ Tazobactam Sod 50 ml @ 100 mls/hr Q6H IV Last administered on 02/16/17 09:27; Start 02/15/17 at 15:00 Piperacillin Sod/ Tazobactam Sod (Zosyn 3.375 Gm Premix) 50 ml @ 100 mls/hr Q8H IV Last administered on 02/15/17 09:22; Start 02/15/17 at 09:00; Stop at 11:16; Status DC Piperacillin Sod/ Tazobactam Sod (Zosyn 4.5 Gm Premix) 100 ml @ 200 mls/hr ONCE ONCE IV Last administered on 02/14/17 14:48; Start 02/14/17 at 14:30; Stop 02/14/17 at 14:59; Status DC Pneumococcal Polyvalent Vaccine (Pneumovax-23 Inj) 25 mcg ONCE ONCE IM Last administered on 02/16/17 09:31; Start 02/16/17 at 09:00; Stop 02/16/17 at 09:01; Status DC Pravastatin Sodium (Pravachol) 20 mg DAILY PO CM Last administered on 02/16/17 09:27; Start 02/15/17 at 09:00 Sodium Chloride (NS Flush) 2 ml BID IV FLUSH Last administered on 02/16/17 09: 27; Start 02/14/17 at 21:00 Sodium Chloride 2 ml 2 ml UNSCH PRN IVF FLUSH AFTER USING IV ACCESS; Start 02/14 at 13:15; Stop 02/14/17 at 21:43; Status DC Vancomycin HCl 1000 mg/Sodium Chloride 250 ml @ 250 mls/hr Q24H IV ; Start 02/15 at 16:00; Stop 02/15/17 at 16:00; Status DC Vancomycin HCl/ Sodium Chloride (Vancomycin Inj/ NS 250 ml Inj) 262.5 ml @ 250 mls/hr Q24H IV Last administered on 02/15/17 15:04; Start 02/15/17 at 16:00 Assessment and Plan Problem List: (1) Cavitary lesion of lung Status: Acute Plan: pulmonary consult (2) Sepsis Status: Acute Plan: on iv abx Discussed Condition With patient has had swallowing difficulties speech consulted Problem Qualifiers (1) Sepsis: Qualified Code: A41.9 - Sepsis, due to unspecified organism Malcolm Norton DO Feb 16, 2017 14:39
[2017-02-16] MEDS: VANCOMYCIN INJ 1,250 MG in SODIUM CHLOR 0.9% 250 ML INJ 250 ML IV SCH (17:24)
[2017-02-16 21:22] VITALS: BP 141/71; PULSE 83; RESP 18; TEMP 97.8; O2SAT 100
[2017-02-16] MEDS: ONDANSETRON HCL 4 MG/2 ML VIAL IV PRN (21:42)
[2017-02-17] VITALS (7 sets, daily range): BP systolic 138–176; BP diastolic 53–84; PULSE 83–99; RESP 18–20; TEMP 97.9–98.6; O2SAT 92–100
[2017-02-17] MEDS: PIPERACIL-TAZO 3.375 GM PREMIX 50 ML IV SCH ×4 (02:38→21:51)
[2017-02-17] MEDS: oxyCODONE/ACETAMINOPHEN 5 MG/325 MG TAB PO PRN ×3 (04:54→18:00)
[2017-02-17] MEDS: INSULIN ASPART SUPPLEMENTAL SCALE SQ SCH ×4 (06:12→21:51)
[2017-02-17] MEDS: RESP: ALBUTEROL 2.5 MG/IPRATROPIUM 0.5 MG NEB (SCH) NEB ×4 (08:30→20:22)
[2017-02-17] MEDS: LISINOPRIL 10 MG TAB PO SCH (09:18)
[2017-02-17] MEDS: FINASTERIDE 5 MG TAB PO SCH (09:18)
[2017-02-17] MEDS: HEPARIN SODIUM - SQ 10,000 UNITS/ML VIAL SQ SCH ×2 (09:18→21:51)
[2017-02-17] MEDS: FAMOTIDINE 20 MG TAB PO SCH ×2 (09:18→21:52)
[2017-02-17] MEDS: PRAVASTATIN SOD 20 MG TAB PO SCH (09:18)
[2017-02-17] MEDS: SODIUM CHLORIDE 0.9% FLUSH 10 ML FLUSH IV FLUSH SCH ×2 (09:19→21:52)
[2017-02-17] MEDS: ONDANSETRON HCL 4 MG/2 ML VIAL IV PRN (09:19)
[2017-02-17 11:10] LABS: BASOPHIL # 0.1 TH/MM3 (0-0.2); BASOPHIL % 0.3 % (0.0-2.0); EOSINOPHIL # 2.4 TH/MM3 (0-0.4); EOSINOPHIL % 7.8 % (0.0-4.0); HEMATOCRIT 35.9 % (39.0-51.0); LYMPH % 7.2 % (9.0-44.0); LYMPHOCYTE # 2.2 TH/MM3 (1.0-4.8); MEAN CELL VOLUME 81.4 FL (80.0-100.0); MEAN CORPUSCULAR HEMOGLOBIN 26.9 PG (27.0-34.0); MEAN CORPUSCULAR HGB CONC 33.1 % (32.0-36.0); NEUT % 78.7 % (16.0-70.0); PLATELET COUNT 317 TH/MM3 (150-450); RED BLOOD COUNT 4.42 MIL/MM3 (4.50-5.90); RED CELL DISTRIBUTION WIDTH 13.8 % (11.6-17.2); WHITE BLOOD COUNT 30.5 TH/MM3 (4.0-11.0)
[2017-02-17 11:25] LABS: HEMO FLAGS AUTO DIFF
[2017-02-17 11:34] LABS: POTASSIUM 3.7 MEQ/L (3.5-5.1)
[2017-02-17 11:51] LABS: BANDS 29 % (0-6); EOSINOPHILS 12 % (0-4); NEUTROPHIL # MANUAL DIFF 24.1 TH/MM3 (1.8-7.7); PLATELET ESTIMATE SMEAR NORMAL (NORMAL); PLATELET MORPHOLOGY NORMAL (NORMAL); POLYS (SEG NEUTROPHILS) 50 % (16-70); SCAN/DIFF FINAL DIFF MANUAL; WBC DIFF SAMPLE 100
--- NOTE | 2017-02-17 14:43 | HHI.PR ---
Subjective Remarks restring quietly requesting regular diet Objective Vital Signs Date Time Temp Pulse Resp B/P Pulse Ox O2 Delivery O2 Flow Rate FiO2 02/17/17 13:03 98.0 98 20 176/82 95 02/17/17 08:38 98.0 96 20 164/84 92 02/17/17 03:48 98.6 89 18 139/53 100 02/17/17 00:00 98.5 83 18 150/62 100 02/16/17 21:22 97.8 83 18 141/71 100 I/O 02/16/17 02/16/17 02/16/17 02/17/17 02/17/17 02/17/17 07:00 15:00 23:00 07:00 15:00 23:00 Intake Total 350 ml 50 ml 240 ml Output Total 600 ml Balance 350 ml -550 ml 240 ml Intake Oral 240 ml IV Total 350 ml 50 ml Output Urine Total 600 ml # Voids 3 2 2 Result Diagram: 02/17/17 1009 02/17/17 1009 Procedures speech eval pending Objective Remarks GENERAL:frail white male patient. SKIN: Warm and dry. HEAD: Normocephalic. EYES: No scleral icterus. No injection or drainage. NECK: Supple, trachea midline. No JVD or lymphadenopathy. CARDIOVASCULAR: Regular rate and rhythm without murmurs, gallops, or rubs. RESPIRATORY: Breath sounds rhonchi throughout GASTROINTESTINAL: Abdomen soft, non-tender, nondistended. EXTREMITIES: No cyanosis, or edema. NEUROLOGICAL: Awake, alert, and oriented x 3. Non-focal. . Medications and IVs Inpatient Medications Acetaminophen (Tylenol) 650 mg Q4H PRN PO TEMP > 100.4; Start 02/14/17 at 20:30 ; Stop 02/14/17 at 21:46; Status DC Albuterol/ Ipratropium 1 ampule 1 ampule Q4HR WHILE AWAKE NEB NEB Last administered on 02/17/17 12:39; Start 02/15/17 at 08:00 Dextrose (D50w (Vial) Inj) 50 ml UNSCH PRN IV HYPOGLYCEMIA-SEE COMMENTS; Start 02/15/17 at 10:15 Docusate Sodium (Colace) 100 mg BID PRN PO CONSTIPATION Last administered on 16:38; Start 02/14/17 at 20:30 Famotidine 20 mg 20 mg BID PO Last administered on 02/17/17 09:18; Start at 21:00 Finasteride (Proscar) 5 mg DAILY PO Last administered on 02/17/17 09:18; Start 02/15/17 at 09:00 Glucagon (Glucagon Inj) 1 mg UNSCH PRN OTHER HYPOGLYCEMIA-SEE COMMENTS; Start 02/15/17 at 10:15 Heparin Sodium (Porcine) (Heparin Inj) 5,000 units Q12H SQ Last administered on 02/17/17 09:18; Start 02/14/17 at 22:00 Insulin Aspart (NovoLOG SUPPLEMENTAL SCALE) 1 ACHS SLIDING SCALE SQ Last administered on 02/17/17 12:01; Start 02/15/17 at 11:00 Lisinopril (Prinivil) 10 mg DAILY PO Last administered on 02/17/17 09:18; Start 02/15/17 at 09:00 Metformin HCl (Glucophage) 500 mg BIDPC PO ; Start 02/15/17 at 09:00; Status Hold Miscellaneous Information SPECIFIC LAB TO BE HENNY... ONCE ONCE .XX ; Start at 15:45; Stop 02/17/17 at 15:46 Naloxone HCl (Narcan Inj) 0.4 mg UNSCH PRN IV SEE LABEL COMMENTS; Start at 20:30 Ondansetron HCl (Zofran Inj) 4 mg Q6H PRN IV NAUSEA Last administered on 09:19; Start 02/14/17 at 20:30 Oxycodone/ Acetaminophen (Percocet 5-325 Mg) 2 tab Q6H PRN PO PAIN SCALE 4 TO 10 Last administered on 02/17/17 11:58; Start 02/15/17 at 08:00 Pharmacy Profile Note 0 ml @ 0 mls/hr UNSCH OTHER ; Start 02/15/17 at 07:00 Piperacillin Sod/ Tazobactam Sod 50 ml @ 100 mls/hr Q6H IV Last administered on 02/17/17 09:18; Start 02/15/17 at 15:00 Piperacillin Sod/ Tazobactam Sod (Zosyn 3.375 Gm Premix) 50 ml @ 100 mls/hr Q8H IV Last administered on 02/15/17 09:22; Start 02/15/17 at 09:00; Stop at 11:16; Status DC Piperacillin Sod/ Tazobactam Sod (Zosyn 4.5 Gm Premix) 100 ml @ 200 mls/hr ONCE ONCE IV Last administered on 02/14/17 14:48; Start 02/14/17 at 14:30; Stop 02/14/17 at 14:59; Status DC Pneumococcal Polyvalent Vaccine (Pneumovax-23 Inj) 25 mcg ONCE ONCE IM Last administered on 02/16/17 09:31; Start 02/16/17 at 09:00; Stop 02/16/17 at 09:01; Status DC Pravastatin Sodium (Pravachol) 20 mg DAILY PO CM Last administered on 02/17/17 09:18; Start 02/15/17 at 09:00 Sodium Chloride (NS Flush) 2 ml BID IV FLUSH Last administered on 02/17/17 09: 19; Start 02/14/17 at 21:00 Sodium Chloride 2 ml 2 ml UNSCH PRN IVF FLUSH AFTER USING IV ACCESS; Start 02/14 at 13:15; Stop 02/14/17 at 21:43; Status DC Vancomycin HCl 1000 mg/Sodium Chloride 250 ml @ 250 mls/hr Q24H IV ; Start 02/15 at 16:00; Stop 02/15/17 at 16:00; Status DC Vancomycin HCl/ Sodium Chloride (Vancomycin Inj/ NS 250 ml Inj) 262.5 ml @ 250 mls/hr Q24H IV Last administered on 02/16/17 17:24; Start 02/15/17 at 16:00 Assessment and Plan Problem List: (1) Cavitary lesion of lung Status: Acute Plan: pulmonary consult (2) Sepsis Status: Acute Plan: on iv abx Assessment and Plan pneumoniae continue iv abx pipracillin and vancomycin Discussed Condition With nursing will switch to regular diet Discharge Planning snf Problem Qualifiers (1) Sepsis: Qualified Code: A41.9 - Sepsis, due to unspecified organism Malcolm Norton DO Feb 17, 2017 14:43
[2017-02-17] MEDS ORDERED: PHARMACY ORDERED LAB ONE (15:45)
[2017-02-17] MEDS: VANCOMYCIN INJ 1,250 MG in SODIUM CHLOR 0.9% 250 ML INJ 250 ML IV SCH (17:25)
[2017-02-18 00:42] VITALS: BP 112/55; PULSE 87; RESP 16; TEMP 98.5; O2SAT 95
[2017-02-18] MEDS: ONDANSETRON HCL 4 MG/2 ML VIAL IV PRN ×2 (01:34→08:07)
[2017-02-18] MEDS: oxyCODONE/ACETAMINOPHEN 5 MG/325 MG TAB PO PRN ×4 (01:34→20:09)
[2017-02-18] MEDS: PIPERACIL-TAZO 3.375 GM PREMIX 50 ML IV SCH ×4 (02:47→22:05)
[2017-02-18 04:30] VITALS: BP 156/70; PULSE 88; RESP 18; TEMP 98; O2SAT 90
[2017-02-18] MEDS ORDERED: VANCOMYCIN INJ 1,250 MG in SODIUM CHLOR 0.9% 250 ML INJ 250 ML IV SCH (05:00)
[2017-02-18] MEDS: INSULIN ASPART SUPPLEMENTAL SCALE SQ SCH ×4 (06:36→20:14)
[2017-02-18] MEDS: FAMOTIDINE 20 MG TAB PO SCH ×2 (08:06→20:09)
[2017-02-18] MEDS: LISINOPRIL 10 MG TAB PO SCH ×2 (08:06→20:10)
[2017-02-18] MEDS: PRAVASTATIN SOD 20 MG TAB PO SCH (08:06)
[2017-02-18] MEDS: FINASTERIDE 5 MG TAB PO SCH (08:06)
[2017-02-18] MEDS: NYSTAT/DIPHENHY/LIDO MOUTHWASH (Adult) 120ML SWISH-SWAL SCH ×4 (08:09→22:05)
[2017-02-18] MEDS: SODIUM CHLORIDE 0.9% FLUSH 10 ML FLUSH IV FLUSH SCH ×2 (08:10→20:10)
[2017-02-18] MEDS: RESP: ALBUTEROL 2.5 MG/IPRATROPIUM 0.5 MG NEB (SCH) NEB ×4 (08:35→19:58)
[2017-02-18 08:49] VITALS: BP 173/79; PULSE 97; RESP 19; TEMP 98.1; O2SAT 97
[2017-02-18] MEDS: HEPARIN SODIUM - SQ 10,000 UNITS/ML VIAL SQ SCH ×2 (11:12→22:10)
--- NOTE | 2017-02-18 12:35 | HHI.PR ---
Subjective Remarks Patient alert and oriented complaining of left head and jaw discomfort. Objective Vital Signs Date Time Temp Pulse Resp B/P Pulse Ox O2 Delivery O2 Flow Rate FiO2 02/18/17 08:49 98.1 97 19 173/79 97 02/18/17 04:30 98.0 88 18 156/70 90 02/18/17 00:42 98.5 87 16 112/55 95 02/17/17 20:49 98.2 89 20 138/65 92 02/17/17 16:16 97.9 99 20 154/72 96 02/17/17 13:03 98.0 98 20 176/82 95 I/O 02/17/17 02/17/17 02/17/17 02/18/17 02/18/17 02/18/17 06:59 14:59 22:59 06:59 14:59 22:59 Intake Total 50 ml 240 ml 369 ml 315 ml Output Total 600 ml Balance -550 ml 240 ml 369 ml 315 ml Intake Oral 240 ml IV Total 50 ml 369 ml 315 ml Output Urine Total 600 ml # Voids 2 1 # Bowel Movements 2 0 Result Diagram: 02/17/17 1009 02/17/17 1009 Procedures speech eval pending Objective Remarks GENERAL: Alert and cooperative SKIN: Warm and dry. Mass noted on tongue HEAD: Normocephalic. EYES: No scleral icterus. No injection or drainage. NECK: Supple, trachea midline. No JVD or lymphadenopathy. CARDIOVASCULAR: Regular rate and rhythm without murmurs, gallops, or rubs. RESPIRATORY: Breath sounds equal bilaterally. No accessory muscle use. GASTROINTESTINAL: Abdomen soft, non-tender, nondistended. MUSCULOSKELETAL: No cyanosis, or edema. BACK: Nontender without obvious deformity. No CVA tenderness. Medications and IVs Current Medications Medications (Trade) Dose Ordered Sig/Joceline Route Start Time Stop Time Status Last Admin (Tylenol) 650 mg Q4H PRN PO 02/14/17 20:30 (Zofran Inj) 4 mg Q6H PRN IV 02/14/17 20:30 02/18/17 08:07 (Colace) 100 mg BID PRN PO 02/14/17 20:30 02/16/17 16:38 (NS Flush) 2 ml UNSCH PRN IV FLUSH 02/14/17 20:30 (NS Flush) 2 ml BID IV FLUSH 02/14/17 21:00 02/18/17 08:10 (Heparin Inj) 5,000 units Q12H SQ 02/14/17 22:00 02/18/17 11:12 (Narcan Inj) 0.4 mg UNSCH PRN IV 02/14/17 20:30 (Proscar) 5 mg DAILY PO 02/15/17 09:00 02/18/17 08:06 (Prinivil) 10 mg DAILY PO 02/15/17 09:00 02/18/17 08:06 (Glucophage) 500 mg BIDPC PO 02/15/17 09:00 Hold Pravastatin Sodium 20 mg 20 mg DAILY PO 02/15/17 09:00 02/18/17 08:06 (Vancomycin Consult Pharmacy) 0 ml @ 0 mls/hr UNSCH OTHER 02/15/17 07:00 (Percocet 5-325 Mg) 2 tab Q6H PRN PO 02/15/17 08:00 02/18/17 08:07 (D50w (Vial) Inj) 50 ml UNSCH PRN IV 02/15/17 10:15 (Glucagon Inj) 1 mg UNSCH PRN OTHER 02/15/17 10:15 Famotidine 20 mg 20 mg BID PO 02/15/17 21:00 02/18/17 08:06 (Zosyn 3.375 Gm Premix) 50 ml @ 100 mls/hr Q6H IV 02/15/17 15:00 02/18/17 08:07 Multi-Ingredient Mouthwash/Gargle 5 ml 5 ml QID SWISH-SWAL 02/18/17 09:00 02/18/17 08:09 (Vancomycin Inj/ NS 250 ml Inj) 262.5 ml @ 250 mls/hr Q12H IV 02/18/17 05:00 02/18/17 04:55 Miscellaneous Information SPECIFIC LAB TO BE DRAWN:VANCOMY... ONCE ONCE .XX 02/19/17 04:45 02/19/17 04:46 Assessment and Plan Problem List: (1) Cavitary lesion of lung Status: Acute Plan: Pulmonary consulted Vancomycin and Zosyn continued and ID consulted WBC on admission elevated at 34.6. Recheck in AM Right lower love cavity mass. Possible cavitary malignancy however inflammatory or infectious process. Sputum culture ordered with heavy normal growth (2) Sepsis Status: Acute Plan: WBC elevated at 34.7. Results pending today. Lactic acid elevated. ID consulted (3) Hypertension Status: Acute Plan: B/P 173/79 will increase lisinopril. (4) Diabetes mellitus Status: Acute Plan: Blood sugars ordered AC and HS. BS 127-186 Metformin on hold. SS ordered as needed (5) HLD (hyperlipidemia) Status: Acute Plan: Continue statin. (6) Tongue abnormality Status: Acute Plan: Left sided facial discomfort. Tongue mass noted. ENT consultation ordered Assessment and Plan Assessment and plan discussed with Dr. Norton Discussed Condition With Nursing Discharge Planning To be determined Physician Attestation I and the LINESPERSON have both examined this patient and reviewed this note and I agree with these findings and plan of care. Malcolm Norton DO Problem Qualifiers (1) Sepsis: Qualified Code: A41.9 - Sepsis, due to unspecified organism Cira Eldridge [facility] Feb 18, 2017 12:35
[2017-02-18 12:40] VITALS: BP 148/71; PULSE 101; RESP 18; TEMP 97.2; O2SAT 95
--- NOTE | 2017-02-18 15:33 | HHI.IDPN ---
Subjective Subjective Remarks Patient is a 76-year-old male, presented to the hospital complaining of shakiness as well as pain on the left side of his head. Patient apparently has been treated for multiple infections including bilateral ear infection, pneumonia, and UTI. Patient has occasional coughing with minimal sputum production. On presentation he was afebrile. His WBCs 34,000. He had a chest x-ray with an abnormality in the right lung, and CT of the chest showed evidence of cavitary lesion in the right lung with adenopathy. Patient stated when he had some cough a couple months ago, he had a chest x-ray done and he was told that there is a finding on his right lung. He was given antibiotics for treatment of pneumonia. Patient denies any nausea or vomiting, or any syncopal episode. He denies any fever or chills or sweats. He is not had any significant weight loss. No urinary complaint, no GI complaints. Patient has not lived [place]. He has not had any exposure to anyone with known tuberculosis. Patient had recently been seen near specialist, and looked at his ears and he was told that they were all clear. Patient complains of pain on his left ear, and it involves the whole left side of his head all the way to the neck. And occasionally he would have some swallowing difficulty. Infectious disease consultation has been requested to evaluate the patient with cavitary lesion in the right lung. Notes reviewed Temps ok TB test still pending Sputum with normal anton Antibiotics Zosyn Vancomycin Lines PIV Past Medical History Hypertension Hyperlipidemia Melanoma COPD Past Surgical History Removal of skin cancer Allergies: Coded Allergies: No Known Allergies (Unverified , 02/14/17) Objective . Vital Signs Date Time Temp Pulse Resp B/P Pulse Ox O2 Delivery O2 Flow Rate FiO2 02/18/17 12:40 97.2 101 18 148/71 95 02/18/17 08:49 98.1 97 19 173/79 97 02/18/17 04:30 98.0 88 18 156/70 90 02/18/17 00:42 98.5 87 16 112/55 95 02/17/17 20:49 98.2 89 20 138/65 92 02/17/17 16:16 97.9 99 20 154/72 96 02/17/17 02/17/17 02/18/17 15:00 23:00 07:00 Intake Total 240 ml 369 ml 315 ml Balance 240 ml 369 ml 315 ml Intake Oral 240 ml IV Total 369 ml 315 ml # Voids 2 1 # Bowel Movements 2 0 . Laboratory Tests Test 02/17/17 10:09 White Blood Count 30.5 TH/MM3 Red Blood Count 4.42 MIL/MM3 Hemoglobin 11.9 GM/DL Hematocrit 35.9 % Mean Corpuscular Volume 81.4 FL Mean Corpuscular Hemoglobin 26.9 PG Mean Corpuscular Hemoglobin 33.1 % Concent Red Cell Distribution Width 13.8 % Platelet Count 317 TH/MM3 Mean Platelet Volume 8.2 FL Neutrophils (%) (Auto) 78.7 % Lymphocytes (%) (Auto) 7.2 % Monocytes (%) (Auto) 6.0 % Eosinophils (%) (Auto) 7.8 % Basophils (%) (Auto) 0.3 % Neutrophils # (Auto) 24.0 TH/MM3 Lymphocytes # (Auto) 2.2 TH/MM3 Monocytes # (Auto) 1.8 TH/MM3 Eosinophils # (Auto) 2.4 TH/MM3 Basophils # (Auto) 0.1 TH/MM3 CBC Comment AUTO DIFF Differential Total Cells 100 Counted Neutrophils % (Manual) 50 % Band Neutrophils % 29 % Lymphocytes % 1 % Monocytes % 8 % Eosinophils % 12 % Neutrophils # (Manual) 24.1 TH/MM3 Differential Comment FINAL DIFF MANUAL Platelet Estimate NORMAL Platelet Morphology Comment NORMAL Red Cell Morphology Comment NORMAL Laboratory Tests Test 02/17/17 10:09 Sodium Level 137 MEQ/L Potassium Level 3.7 MEQ/L Chloride Level 100 MEQ/L Carbon Dioxide Level 27.0 MEQ/L Anion Gap 10 MEQ/L Blood Urea Nitrogen 7 MG/DL Creatinine 0.70 MG/DL Estimat Glomerular Filtration 110 ML/MIN Rate Random Glucose 166 MG/DL Calcium Level 9.5 MG/DL Physical Exam GENERAL: awake and alert, not in respiratory distress. SKIN: Warm and dry. No generalized rash, no ecchymoses and no evidence of embolic lesions. HEAD: Atraumatic. Normocephalic. No temporal wasting, or tenderness. EYES: [place] conjunctiva. No petechia or hemorrhage. Pupils equal, round and reactive to light. Extraocular movements full and intact. No scleral icterus. No injection or drainage. EARS, NOSE AND THROAT: Nose without bleeding or purulent nasal discharge. No sinus tenderness. Mucous membranes pink and moist. NECK: Trachea midline. Supple and not tender, no meningeal signs. No lymphadenopathy, no swelling CARDIOVASCULAR: Regular rate and rhythm. No murmurs, rubs or gallops heard RESPIRATORY: Clear to auscultation. Breath sounds equal bilaterally. No rales , wheezing or rhonchi ABDOMEN: Soft, non-tender, nondistended. Bowel sounds present and normoactive. No guarding. No rebound. No organomegaly. EXTREMITIES: No clubbing, cyanosis, or edema.No joint effusion, has good ROM. No calf tenderness. Well perfused and warm. NEUROLOGICAL: Non-focal PSYCHIATRIC: Normal affect, calm and cooperative. LINE: No evidence of infection Assessment & Plan Remarks IMPRESSION Cavitary lesion RLL, with adenopathy, ?malignancy vs infection - TB typically upper lobes - concern with CA especially with history of smoking COPD Pain L side of head/ear and neck - CT neck ok - ?radiation pain,, ?cervical, ?occipital RECOMMENDATION Await TB test results Stop Vanco since no MRSA Continue Zosyn for now Will likely need bronch Loraine Orr MD Feb 18, 2017 15:33
[2017-02-18 17:04] VITALS: BP 158/68; PULSE 86; RESP 18; TEMP 98.4; O2SAT 95
[2017-02-18 17:07] LABS: BASOPHIL # 0.2 TH/MM3 (0-0.2); BASOPHIL % 0.5 % (0.0-2.0); EOSINOPHIL # 3.6 TH/MM3 (0-0.4); EOSINOPHIL % 10.3 % (0.0-4.0); LYMPH % 6.8 % (9.0-44.0); LYMPHOCYTE # 2.4 TH/MM3 (1.0-4.8); MEAN CELL VOLUME 81.8 FL (80.0-100.0); MEAN CORPUSCULAR HEMOGLOBIN 26.2 PG (27.0-34.0); MONO % 7.5 % (0.0-8.0); NEUT % 74.9 % (16.0-70.0); PLATELET COUNT 347 TH/MM3 (150-450); RED BLOOD COUNT 4.28 MIL/MM3 (4.50-5.90); RED CELL DISTRIBUTION WIDTH 14.1 % (11.6-17.2); WHITE BLOOD COUNT 34.8 TH/MM3 (4.0-11.0)
[2017-02-18 17:22] LABS: HEMO FLAGS AUTO DIFF
[2017-02-18 17:26] LABS: POTASSIUM 3.8 MEQ/L (3.5-5.1)
[2017-02-18 18:00] LABS: BANDS 15 % (0-6); EOSINOPHILS 7 % (0-4); NEUTROPHIL # MANUAL DIFF 26.8 TH/MM3 (1.8-7.7); POLYS (SEG NEUTROPHILS) 62 % (16-70); WBC DIFF SAMPLE 100
[2017-02-18 18:01] LABS: PLATELET ESTIMATE SMEAR NORMAL (NORMAL); PLATELET MORPHOLOGY NORMAL (NORMAL); SCAN/DIFF FINAL DIFF MANUAL; TOXIC GRANULATION 1+ (NORMAL); TOXIC VACUOLATION PRESENT (NONE SEEN)
--- NOTE | 2017-02-18 19:01 | HHI.PR ---
Subjective Remarks 76 YOWM with RLL cavitary lesion, DM,HTN feels better No fever no chills AFB negative Objective Vital Signs Vital Signs Date Time Temp Pulse Resp B/P Pulse Ox O2 Delivery O2 Flow Rate FiO2 02/18/17 17:04 98.4 86 18 158/68 95 02/18/17 12:40 97.2 101 18 148/71 95 02/18/17 08:49 98.1 97 19 173/79 97 02/18/17 04:30 98.0 88 18 156/70 90 02/18/17 00:42 98.5 87 16 112/55 95 02/17/17 20:49 98.2 89 20 138/65 92 I/O 02/17/17 02/17/17 02/17/17 02/18/17 02/18/17 02/18/17 07:00 15:00 23:00 07:00 15:00 23:00 Intake Total 50 ml 240 ml 369 ml 315 ml 480 ml Output Total 600 ml Balance -550 ml 240 ml 369 ml 315 ml 480 ml Intake Oral 240 ml 480 ml IV Total 50 ml 369 ml 315 ml Output Urine Total 600 ml # Voids 2 1 3 # Bowel Movements 2 0 1 Result Diagram: 02/18/17 1630 02/18/17 1630 Objective Remarks GENERAL: MBMN WM,NAD SKIN: Warm and dry. HEAD: Normocephalic. EYES: No scleral icterus. No injection or drainage. NECK: Supple, trachea midline. No JVD or lymphadenopathy. CARDIOVASCULAR: Regular rate and rhythm without murmurs, gallops, or rubs. RESPIRATORY: Breath sounds equal bilaterally. No accessory muscle use. GASTROINTESTINAL: Abdomen soft, non-tender, nondistended. MUSCULOSKELETAL: No cyanosis, or edema. BACK: Nontender without obvious deformity. No CVA tenderness. A/P Assessment and Plan RLL Cavitary lesion, Mal[place] vs TB vs infection COPD DM HTN PLAN: Abx per ID Sputum PCR Quantiferon test DW Pt, agrees for bronch Will jacques for Henri Griffin MD Feb 18, 2017 19:01
[2017-02-18 20:00] VITALS: BP 162/79; PULSE 90; PULSE 94; RESP 20; TEMP 97.8; O2SAT 94
[2017-02-18 22:01] LABS: AUTOMATED NEUTROPHIL # 25.9 TH/MM3 (1.8-7.7); BASOPHIL # 0.2 TH/MM3 (0-0.2); BASOPHIL % 0.6 % (0.0-2.0); EOSINOPHIL # 3.8 TH/MM3 (0-0.4); HEMATOCRIT 35.4 % (39.0-51.0); LYMPH % 6.9 % (9.0-44.0); LYMPHOCYTE # 2.4 TH/MM3 (1.0-4.8); NEUT % 74.5 % (16.0-70.0); PLATELET COUNT 383 TH/MM3 (150-450); RED BLOOD COUNT 4.32 MIL/MM3 (4.50-5.90); WHITE BLOOD COUNT 34.8 TH/MM3 (4.0-11.0)
[2017-02-18 22:02] LABS: APTT (PATIENT) 29.6 SEC (24.3-30.1); PROTHROMBIN TIME - PATIENT 11.3 SEC (9.8-11.6)
[2017-02-18 22:06] LABS: HEMO FLAGS AUTO DIFF
[2017-02-18 22:13] LABS: BICARBONATE 25.6 MEQ/L (21.0-32.0); POTASSIUM 3.5 MEQ/L (3.5-5.1)
[2017-02-18 22:41] LABS: BANDS 26 % (0-6); EOSINOPHILS 12 % (0-4); NEUTROPHIL # MANUAL DIFF 28.2 TH/MM3 (1.8-7.7); POLYS (SEG NEUTROPHILS) 55 % (16-70); WBC DIFF SAMPLE 100
[2017-02-18 22:42] LABS: PLATELET ESTIMATE SMEAR NORMAL (NORMAL); PLATELET MORPHOLOGY NORMAL (NORMAL); SCAN/DIFF FINAL DIFF MANUAL
[2017-02-19] VITALS (8 sets, daily range): BP systolic 151–170; BP diastolic 72–75; PULSE 81–100; RESP 16–20; TEMP 97.8–98.9; O2SAT 90–95
[2017-02-19] MEDS: oxyCODONE/ACETAMINOPHEN 5 MG/325 MG TAB PO PRN ×5 (02:20→20:55)
[2017-02-19] MEDS: PIPERACIL-TAZO 3.375 GM PREMIX 50 ML IV SCH ×4 (02:49→20:55)
[2017-02-19] MEDS ORDERED: PHARMACY ORDERED LAB-VANCO TROUGH ONE (04:45)
[2017-02-19] MEDS: LISINOPRIL 10 MG TAB PO SCH ×2 (08:00→19:55)
[2017-02-19] MEDS: PRAVASTATIN SOD 20 MG TAB PO SCH (08:00)
[2017-02-19] MEDS: FINASTERIDE 5 MG TAB PO SCH (08:00)
[2017-02-19] MEDS: FAMOTIDINE 20 MG TAB PO SCH ×2 (08:00→19:56)
[2017-02-19] MEDS: SODIUM CHLORIDE 0.9% FLUSH 10 ML FLUSH IV FLUSH SCH ×2 (08:01→19:58)
[2017-02-19] MEDS: ONDANSETRON HCL 4 MG/2 ML VIAL IV PRN (08:05)
[2017-02-19] MEDS ORDERED: SODIUM CHLORIDE 0.9% 20 ML VIAL ONE (08:59)
[2017-02-19] MEDS: NYSTAT/DIPHENHY/LIDO MOUTHWASH (Adult) 120ML SWISH-SWAL SCH ×4 (09:00→19:56)
[2017-02-19] MEDS ORDERED: LIDOCAINE HCL 2% 50 ML VIAL ONE (09:01)
[2017-02-19] MEDS ORDERED: EPINEPHrine HCL (1:1000) 1 MG/ML VIAL ONE (09:01)
[2017-02-19] MEDS: HEPARIN SODIUM - SQ 10,000 UNITS/ML VIAL SQ SCH ×2 (10:00→20:54)
[2017-02-19] MEDS ORDERED: GADODIAMIDE PF 287 MG/ML 5 ML VIAL (for RAD MRI) IV ONE (10:20)
[2017-02-19] MEDS: INSULIN ASPART SUPPLEMENTAL SCALE SQ SCH ×3 (10:27→19:52)
--- NOTE | 2017-02-19 10:54 | RADRPT ---
EXAM DATE/TIME: 02/19/2017 08:56 [facility] COMPARISON: No previous studies available for comparison. INDICATIONS : Cephalgia. Left sided weakness. CONTRAST: 13 cc Omniscan (gadodiamide) IV MEDICAL HISTORY : Diabetes mellitus type 2. SURGICAL HISTORY : Tonsillectomy. ENCOUNTER: Initial ACUITY: 2 day PAIN SCORE: 0/10 LOCATION: head TECHNIQUE: Multiplanar, multisequence MRI of the brain was performed both prior to and following the administrat ion of paramagnetic contrast. FINDINGS: CEREBRUM: The CSF spaces are mildly to moderately enlarged. There is moderate ventricular enlargement with a ca vum septum pellucidum. No evidence of midline shift, mass lesion, hemorrhage or acute infarction. No extraaxial fluid collections are seen. The pituitary gland and suprasellar cistern are normal in co nfiguration. WHITE MATTER: No significant signal abnormalities are seen in the white matter. POSTERIOR FOSSA: The cerebellum and brainstem are intact. The 4th ventricle is midline. The cerebellopontine angle is unremarkable. The cerebellar tonsils are normal in position. DIFFUSION IMAGING: No focal areas of restricted diffusion are seen. No evidence of acute infarction. EXTRACRANIAL: The visualized portions of the orbits and paranasal sinuses are unremarkable. POST-CONTRAST: No abnormal areas of parenchymal or dural enhancement. No evidence of blood-brain barrier breakdown. CONCLUSION: Aging brain with generalized volume loss. No evidence of acute infarct, hemorrhage, mass or edema. Dane Hicks MD on February 19, 2017 at 10:48 Board Certified Radiologist. This report was verified electronically.
--- NOTE | 2017-02-19 11:07 | HHI.PR ---
Subjective Remarks Patient alert and oriented plan to have bronchoscopy today. MRI pending Objective Vital Signs Date Time Temp Pulse Resp B/P Pulse Ox O2 Delivery O2 Flow Rate FiO2 02/19/17 08:00 98.7 100 18 170/75 90 02/19/17 04:00 98.7 81 20 154/74 94 02/19/17 00:00 98.9 87 20 160/74 95 02/18/17 20:00 97.8 94 20 162/79 94 02/18/17 20:00 90 02/18/17 17:04 98.4 86 18 158/68 95 02/18/17 12:40 97.2 101 18 148/71 95 I/O 02/18/17 02/18/17 02/18/17 02/19/17 02/19/17 02/19/17 07:00 15:00 23:00 07:00 15:00 23:00 Intake Total 315 ml 720 ml Balance 315 ml 720 ml Intake Oral 720 ml IV Total 315 ml # Voids 1 4 1 # Bowel Movements 0 1 Result Diagram: 02/18/17205502/18/172055 Procedures speech eval pending Objective Remarks GENERAL: Alert and cooperative SKIN: Warm and dry. Mass noted on tongue HEAD: Normocephalic. EYES: No scleral icterus. No injection or drainage. NECK: Supple, trachea midline. No JVD or lymphadenopathy. CARDIOVASCULAR: Regular rate and rhythm without murmurs, gallops, or rubs. RESPIRATORY: Breath sounds equal bilaterally. No accessory muscle use. GASTROINTESTINAL: Abdomen soft, non-tender, nondistended. MUSCULOSKELETAL: No cyanosis, or edema. BACK: Nontender without obvious deformity. No CVA tenderness. Medications and IVs Current Medications Medications (Trade) Dose Ordered Sig/Joceline Route Start Time Stop Time Status Last Admin (Tylenol) 650 mg Q4H PRN PO 02/14/17 20:30 (Zofran Inj) 4 mg Q6H PRN IV 02/14/17 20:30 02/19/17 08:05 (Colace) 100 mg BID PRN PO 02/14/17 20:30 02/16/17 16:38 (NS Flush) 2 ml UNSCH PRN IV FLUSH 02/14/17 20:30 (NS Flush) 2 ml BID IV FLUSH 02/14/17 21:00 02/19/17 08:01 (Heparin Inj) 5,000 units Q12H SQ 02/14/17 22:00 02/18/17 22:10 (Narcan Inj) 0.4 mg UNSCH PRN IV 02/14/17 20:30 (Proscar) 5 mg DAILY PO 02/15/17 09:00 02/19/17 08:00 (Glucophage) 500 mg BIDPC PO 02/15/17 09:00 Hold (Pravachol) 20 mg DAILY PO 02/15/17 09:00 02/19/17 08:00 (Percocet 5-325 Mg) 2 tab Q6H PRN PO 02/15/17 08:00 02/19/17 08:01 (D50w (Vial) Inj) 50 ml UNSCH PRN IV 02/15/17 10:15 (Glucagon Inj) 1 mg UNSCH PRN OTHER 02/15/17 10:15 Famotidine 20 mg 20 mg BID PO 02/15/17 21:00 02/19/17 08:00 (Zosyn 3.375 Gm Premix) 50 ml @ 100 mls/hr Q6H IV 02/15/17 15:00 02/19/17 08:01 (Magic Mouthwash Adult Liq) 5 ml QID SWISH-SWAL 02/18/17 09:00 02/18/17 22:05 (Prinivil) 10 mg BID PO 02/18/17 21:00 02/19/17 08:00 Assessment and Plan Problem List: (1) Cavitary lesion of lung Status: Acute Plan: Pulmonary consulted and managing Vancomycin and Zosyn continued and ID consulted WBC on admission elevated at 34.8. Recheck pending Right lower love cavity mass. Possible cavitary malignancy however inflammatory or infectious process. Sputum culture ordered with heavy normal growth Bronchoscopy for today. (2) Sepsis Status: Acute Plan: WBC elevated at 34.8 yesterday . Results pending today. Has remained afebrile ID consulted (3) Hypertension Status: Acute Plan: B/P elevated this AM increased lisinopril yesterday could be pain related will monitor and make changes tomorrow. (4) Diabetes mellitus Status: Acute Plan: Blood sugars ordered AC and HS. BS 104-167 Metformin on hold. SS ordered as needed (5) HLD (hyperlipidemia) Status: Acute Plan: Continue statin. (6) Tongue abnormality Status: Acute Plan: Left sided facial discomfort. Tongue mass noted. ENT consultation ordered MRI with no acute findings. Assessment and Plan Assessment and plan discussed with Dr. Norton Discussed Condition With Nursing Discharge Planning Home with [facility] Physician Attestation I and the BID ANALYST have both examined this patient and reviewed this note and I agree with these findings and plan of care. Malcolm Norton DO Problem Qualifiers (1) Sepsis: Qualified Code: A41.9 - Sepsis, due to unspecified organism Cira Eldridge [facility] Feb 19, 2017 11:07
[2017-02-19] MEDS ORDERED: DO NOT ADM ANY ANTICOAGULANT DRUGS PRN (11:35)
[2017-02-19] MEDS ORDERED: PROPOFOL 200 MG/20 ML AMP IV ONE (12:00)
[2017-02-19] MEDS ORDERED: ONDANSETRON HCL 4 MG/2 ML VIAL IV PUSH ONE (12:00)
[2017-02-19] MEDS ORDERED: *RESP: ALBUTEROL 2.5 MG/3 ML NEB (PRN) PERIprocedural Use ONLY NEB ONE (12:16)
--- NOTE | 2017-02-19 12:39 | RADRPT ---
EXAM DATE/TIME: 02/19/2017 11:45 [place] COMPARISON: CT THORAX W CONTRAST, February 14, 2017, 15:37. CHEST SINGLE AP, February 14, 2017, 13:43. INDICATIONS : Post bronchoscopy. MEDICAL HISTORY : Hypertension. Diabetes mellitus type II. Benign prostatic hyperplasa, skin cancer SURGICAL HISTORY : skin cancer graft on left chest ENCOUNTER: Initial ACUITY: 1 day PAIN SCORE: Non-responsive. LOCATION: Bilateral chest FINDINGS: There has been no change in the cavitary lesion in the right upper lung compared to the prior chest x -ray. No new or acute infiltrates are demonstrated. There is some stable interstitial changes bilater ally. Heart size is stable. No evidence of pleural effusion. There is stable pleural thickening in th e right upper hemithorax. The bony structures are stable. CONCLUSION: Stable cavitary lesion in the right upper lung. No new or significant changes. Andres Rodgers MD on February 19, 2017 at 12:35 Board Certified Radiologist. This report was verified electronically.
[2017-02-19 15:19] LABS: NIL RESULT 0.01 IU/mL (()); QUANTIFERON TB GOLD RESULT Negative (Negative)
[2017-02-19 16:21] LABS: HEMATOCRIT 36.1 % (39.0-51.0); MEAN CELL VOLUME 82.5 FL (80.0-100.0); MEAN CORPUSCULAR HEMOGLOBIN 26.6 PG (27.0-34.0); MEAN CORPUSCULAR HGB CONC 32.3 % (32.0-36.0); PLATELET COUNT 358 TH/MM3 (150-450); RED BLOOD COUNT 4.38 MIL/MM3 (4.50-5.90); RED CELL DISTRIBUTION WIDTH 14.1 % (11.6-17.2)
[2017-02-19 16:25] LABS: HEMO FLAGS AUTO DIFF
--- NOTE | 2017-02-19 16:31 | MR ---
cc: JAMSHID MATIAS DATE OF PROCEDURE 02/19/17 PROCEDURE Bronchoscopy. PREOPERATIVE DIAGNOSIS Right lower lobe cavitary lesion. POSTOPERATIVE DIAGNOSIS Mild obstruction and erythema of the right lower lobe. No obstructing lesions seen. PROCEDURE Informed consent was obtained from the patient. The procedure and the complications including complication, anesthesia, pneumothorax requiring chest tube, bleeding complication, injury to the blood vessels, lungs, nerves, arrhythmia, hypoxia were explained. He consented for the procedure. The patient was brought to operating room under general anesthesia. An LMA tube was placed by anesthesiologist. The bronchoscope was introduced through the LMA tube. Vocal cords are normal. Trachea normal. Main demario is sharp. Bronchoscope advanced to the left lung. Left upper, lingula, lower lobe was visualized. A small amount of mucous was suctioned. No endobronchial lesion was seen. Then bronchoscope pulled back, advanced to the right lung. The right upper, middle, lower lobe were visualized. There is mild erythema and mucosal prominence of the right lower lobe. Right lower lobe brushing biopsy and washings were done. Biopsy sent for pathology. Washings sent for cytology, routine culture, AFB fungal culture and brushings sent for cytology. He tolerated the procedure well. Postprocedure chest x-ray ordered to rule out pneumothorax. MD REBEKAH Uriarte/KEYON /11:19 AM /4:15 PM
[2017-02-19 16:43] LABS: BICARBONATE 24.8 MEQ/L (21.0-32.0); POTASSIUM 3.4 MEQ/L (3.5-5.1)
[2017-02-19 17:12] LABS: BANDS 22 % (0-6); BASOPHILS 1 % (0-2); EOSINOPHILS 7 % (0-4); NEUTROPHIL # MANUAL DIFF 32.4 TH/MM3 (1.8-7.7); PLATELET ESTIMATE SMEAR NORMAL (NORMAL); PLATELET MORPHOLOGY NORMAL (NORMAL); POLYS (SEG NEUTROPHILS) 61 % (16-70); SCAN/DIFF FINAL DIFF MANUAL; WBC DIFF SAMPLE 100
--- NOTE | 2017-02-19 19:14 | HHI.PR ---
Subjective Remarks 76 YOWM with RLL cavitary lesion, DM,HTN feels better No fever no chills Had Bronch, bx RLL Has mucosal thickening and erythema RLL bronchus Objective Vital Signs Vital Signs Date Time Temp Pulse Resp B/P Pulse Ox O2 Delivery O2 Flow Rate FiO2 02/19/17 17:41 95 Nasal Cannula 3.00 02/19/17 16:00 97.9 95 18 151/72 95 02/19/17 13:00 98.3 86 16 158/74 95 02/19/17 12:15 98.1 80 18 127/68 96 Nasal Cannula 3 02/19/17 12:00 79 18 113/57 96 Nasal Cannula 3 02/19/17 11:45 83 18 125/60 96 Nasal Cannula 4 02/19/17 11:37 98.1 84 16 110/55 96 Simple Mask 6 02/19/17 08:00 98.7 100 18 170/75 90 02/19/17 04:00 98.7 81 20 154/74 94 02/19/17 00:00 98.9 87 20 160/74 95 02/18/17 20:00 97.8 94 20 162/79 94 02/18/17 20:00 90 I/O 02/18/17 02/18/17 02/18/17 02/19/17 02/19/17 02/19/17 07:00 15:00 23:00 07:00 15:00 23:00 Intake Total 315 ml 720 ml 200 ml Balance 315 ml 720 ml 200 ml Intake Oral 720 ml IV Total 315 ml 50 ml Other 150 ml # Voids 1 4 1 # Bowel Movements 0 1 Result Diagram: 02/19/17 1523 02/19/17 1523 Objective Remarks GENERAL: MBMN WM,NAD SKIN: Warm and dry. HEAD: Normocephalic. EYES: No scleral icterus. No injection or drainage. NECK: Supple, trachea midline. No JVD or lymphadenopathy. CARDIOVASCULAR: Regular rate and rhythm without murmurs, gallops, or rubs. RESPIRATORY: Breath sounds equal bilaterally. No accessory muscle use. GASTROINTESTINAL: Abdomen soft, non-tender, nondistended. MUSCULOSKELETAL: No cyanosis, or edema. BACK: Nontender without obvious deformity. No CVA tenderness. A/P Assessment and Plan RLL Cavitary lesion, Malig vs TB vs infection COPD DM HTN PLAN: Abx per ID Sputum PCR Quantiferon test Check bronch results Henri Harrison MD Feb 19, 2017 19:13
[2017-02-19] MEDS: PREGABALIN 75 MG CAP PO SCH (20:55)
[2017-02-20] VITALS (10 sets, daily range): BP systolic 151–181; BP diastolic 70–84; PULSE 83–106; RESP 20; TEMP 98–98.3; O2SAT 91–96
[2017-02-20] MEDS: oxyCODONE/ACETAMINOPHEN 5 MG/325 MG TAB PO PRN ×4 (02:27→21:17)
[2017-02-20] MEDS: PIPERACIL-TAZO 3.375 GM PREMIX 50 ML IV SCH ×2 (02:28→08:20)
[2017-02-20] MEDS: INSULIN ASPART SUPPLEMENTAL SCALE SQ SCH ×4 (06:21→21:00)
[2017-02-20] MEDS: PREGABALIN 75 MG CAP PO SCH ×3 (06:23→21:18)
[2017-02-20] MEDS: FAMOTIDINE 20 MG TAB PO SCH ×2 (08:18→21:18)
[2017-02-20] MEDS: FINASTERIDE 5 MG TAB PO SCH (08:18)
[2017-02-20] MEDS: LISINOPRIL 10 MG TAB PO SCH ×2 (08:18→21:18)
[2017-02-20] MEDS: PRAVASTATIN SOD 20 MG TAB PO SCH (08:19)
[2017-02-20] MEDS: SODIUM CHLORIDE 0.9% FLUSH 10 ML FLUSH IV FLUSH SCH ×2 (08:19→21:23)
[2017-02-20] MEDS: NYSTAT/DIPHENHY/LIDO MOUTHWASH (Adult) 120ML SWISH-SWAL SCH ×4 (08:20→21:16)
[2017-02-20 10:53] LABS: AUTOMATED NEUTROPHIL # 34.3 TH/MM3 (1.8-7.7); BASOPHIL # 0.2 TH/MM3 (0-0.2); BASOPHIL % 0.5 % (0.0-2.0); EOSINOPHIL # 3.8 TH/MM3 (0-0.4); EOSINOPHIL % 8.8 % (0.0-4.0); HEMATOCRIT 36.9 % (39.0-51.0); LYMPH % 5.1 % (9.0-44.0); LYMPHOCYTE # 2.2 TH/MM3 (1.0-4.8); MEAN CORPUSCULAR HEMOGLOBIN 27.3 PG (27.0-34.0); MEAN CORPUSCULAR HGB CONC 33.7 % (32.0-36.0); MONO % 6.4 % (0.0-8.0); NEUT % 79.2 % (16.0-70.0); PLATELET COUNT 339 TH/MM3 (150-450); RED BLOOD COUNT 4.56 MIL/MM3 (4.50-5.90); RED CELL DISTRIBUTION WIDTH 14.1 % (11.6-17.2); WHITE BLOOD COUNT 43.3 TH/MM3 (4.0-11.0)
[2017-02-20] MEDS: HEPARIN SODIUM - SQ 10,000 UNITS/ML VIAL SQ SCH ×2 (10:55→21:22)
[2017-02-20 10:56] LABS: HEMO FLAGS AUTO DIFF
[2017-02-20 11:20] LABS: BICARBONATE 22.6 MEQ/L (21.0-32.0); POTASSIUM 3.7 MEQ/L (3.5-5.1)
--- NOTE | 2017-02-20 11:51 | HHI.PR ---
Subjective Remarks Patient alert and oriented bronchoscopy done yesterday tolerated well. Objective Vital Signs Date Time Temp Pulse Resp B/P Pulse Ox O2 Delivery O2 Flow Rate FiO2 02/20/17 09:44 92 Nasal Cannula 3.00 02/20/17 08:40 98.2 106 20 181/79 91 02/20/17 06:24 98.1 90 174/79 94 02/20/17 05:49 83 02/20/17 03:35 97 168/77 93 02/20/17 02:28 98.0 88 151/70 96 02/19/17 22:00 91 02/19/17 20:30 97.8 95 18 158/72 91 02/19/17 17:41 95 Nasal Cannula 3.00 02/19/17 16:00 97.9 95 18 151/72 95 02/19/17 13:00 98.3 86 16 158/74 95 02/19/17 12:15 98.1 80 18 127/68 96 Nasal Cannula 3 02/19/17 12:00 79 18 113/57 96 Nasal Cannula 3 02/19/17 11:45 83 18 125/60 96 Nasal Cannula 4 02/19/17 11:37 98.1 84 16 110/55 96 Simple Mask 6 I/O 02/19/17 02/19/17 02/19/17 02/20/17 02/20/17 02/20/17 07:00 15:00 23:00 07:00 15:00 23:00 Intake Total 200 ml Balance 200 ml IV Total 50 ml Other 150 ml # Voids 1 Result Diagram: 02/20/17 1030 02/20/17 1030 Imaging Last 72 hours Impressions Chest X-Ray 02/19/17 0000 Signed Impressions: Service Date/Time: Sunday, February 19, 2017 11:45 - CONCLUSION: Stable cavitary lesion in the right upper lung. No new or significant changes. Andres Rodgers MD Brain MRI 02/19/17 0000 Signed Impressions: Service Date/Time: Sunday, February 19, 2017 08:56 - CONCLUSION: Aging brain with generalized volume loss. No evidence of acute infarct, hemorrhage, mass or edema. Dane Hicks MD Procedures speech eval pending Objective Remarks GENERAL: Alert and cooperative SKIN: Warm and dry. Mass noted on tongue HEAD: Normocephalic. EYES: No scleral icterus. No injection or drainage. NECK: Supple, trachea midline. No JVD or lymphadenopathy. CARDIOVASCULAR: Regular rate and rhythm without murmurs, gallops, or rubs. RESPIRATORY: Breath sounds equal bilaterally. No accessory muscle use. GASTROINTESTINAL: Abdomen soft, non-tender, nondistended. MUSCULOSKELETAL: No cyanosis, or edema. BACK: Nontender without obvious deformity. No CVA tenderness. Medications and IVs Current Medications Medications (Trade) Dose Ordered Sig/Joceline Route Start Time Stop Time Status Last Admin (Tylenol) 650 mg Q4H PRN PO 02/14/17 20:30 (Zofran Inj) 4 mg Q6H PRN IV 02/14/17 20:30 02/19/17 08:05 (Colace) 100 mg BID PRN PO 02/14/17 20:30 02/16/17 16:38 (NS Flush) 2 ml UNSCH PRN IV FLUSH 02/14/17 20:30 (NS Flush) 2 ml BID IV FLUSH 02/14/17 21:00 02/20/17 08:19 (Heparin Inj) 5,000 units Q12H SQ 02/14/17 22:00 02/20/17 10:55 (Narcan Inj) 0.4 mg UNSCH PRN IV 02/14/17 20:30 (Proscar) 5 mg DAILY PO 02/15/17 09:00 02/20/17 08:18 (Glucophage) 500 mg BIDPC PO 02/15/17 09:00 Hold (Pravachol) 20 mg DAILY PO 02/15/17 09:00 02/20/17 08:19 (Percocet 5-325 Mg) 2 tab Q6H PRN PO 02/15/17 08:00 02/20/17 08:19 (D50w (Vial) Inj) 50 ml UNSCH PRN IV 02/15/17 10:15 (Glucagon Inj) 1 mg UNSCH PRN OTHER 02/15/17 10:15 Famotidine 20 mg 20 mg BID PO 02/15/17 21:00 02/20/17 08:18 (Zosyn 3.375 Gm Premix) 50 ml @ 100 mls/hr Q6H IV 02/15/17 15:00 02/20/17 08:20 (Magic Mouthwash Adult Liq) 5 ml QID SWISH-SWAL 02/18/17 09:00 02/20/17 08:20 (Prinivil) 10 mg BID PO 02/18/17 21:00 02/20/17 08:18 Miscellaneous Information ALL NURSING DEPARTME... UNSCH PRN .XX 02/19/17 11:35 02/20/17 11:34 (Lyrica) 75 mg Q8HR PO 02/19/17 22:00 02/20/17 06:23 Assessment and Plan Problem List: (1) Cavitary lesion of lung Status: Acute Plan: Pulmonary consulted and managing Vancomycin and Zosyn continued and ID consulted WBC increased to 43.3 Right lower love cavity mass. Possible cavitary malignancy however inflammatory or infectious process. Sputum culture ordered with heavy normal growth Bronchoscopy done yesterday with biopsy obtained (2) Sepsis Status: Acute Plan: WBC elevated at 43.3 ID consulted and following. Hematology consulted today. Has remained afebrile On Zosyn (3) Hypertension Status: Acute Plan: Continues to be elevated at 181/79 lisinopril increased. (4) Diabetes mellitus Status: Acute Plan: Blood sugars ordered AC and HS. BS 119-131 Metformin on hold. SS ordered as needed (5) HLD (hyperlipidemia) Status: Acute Plan: Continue statin. (6) Tongue abnormality Status: Acute Plan: Left sided facial discomfort. Tongue mass noted. ENT consultation ordered MRI with no acute findings. Assessment and Plan Assessment and plan discussed with Dr. Norton Discussed Condition With Nursing;. Physician Attestation I and the ROLLER PRINTING SUPERVISOR have both examined this patient and reviewed this note and I agree with these findings and plan of care. Malcolm Norton DO Problem Qualifiers (1) Sepsis: Qualified Code: A41.9 - Sepsis, due to unspecified organism Cira Eldridge [employer]ER PRINTING SUPERVISOR Feb 20, 2017 11:51
[2017-02-20 12:04] LABS: BANDS 20 % (0-6); BASOPHILS 1 % (0-2); EOSINOPHILS 6 % (0-4); NEUTROPHIL # MANUAL DIFF 33.8 TH/MM3 (1.8-7.7); PLASMA CELLS 1 % (0-0); POLYS (SEG NEUTROPHILS) 58 % (16-70); WBC DIFF SAMPLE 100
[2017-02-20 12:05] LABS: PLATELET ESTIMATE SMEAR NORMAL (NORMAL); PLATELET MORPHOLOGY NORMAL (NORMAL); SCAN/DIFF FINAL DIFF MANUAL
--- NOTE | 2017-02-20 12:28 | HHI.IDPN ---
Subjective Subjective Remarks Patient is a 76-year-old male, presented to the hospital complaining of shakiness as well as pain on the left side of his head. Patient apparently has been treated for multiple infections including bilateral ear infection, pneumonia, and UTI. Patient has occasional coughing with minimal sputum production. On presentation he was afebrile. His WBCs 34,000. He had a chest x-ray with an abnormality in the right lung, and CT of the chest showed evidence of cavitary lesion in the right lung with adenopathy. Patient stated when he had some cough a couple months ago, he had a chest x-ray done and he was told that there is a finding on his right lung. He was given antibiotics for treatment of pneumonia. Patient denies any nausea or vomiting, or any syncopal episode. He denies any fever or chills or sweats. He is not had any significant weight loss. No urinary complaint, no GI complaints. Patient has not lived [place]. He has not had any exposure to anyone with known tuberculosis. Patient had recently been seen near specialist, and looked at his ears and he was told that they were all clear. Patient complains of pain on his left ear, and it involves the whole left side of his head all the way to the neck. And occasionally he would have some swallowing difficulty. Infectious disease consultation has been requested to evaluate the patient with cavitary lesion in the right lung. Notes reviewed Temps ok Had bronch yesterday C/O sore area on his tongue Having difficult time eating Not SOB Not coughing much No hemoptysis WBC rising - has had increased eos from admission but has been rising TB quantiferon negative TB PCR pending Bronch C/S pending Bronch AFB negative Brain MRI negative Antibiotics Zosyn Lines PIV Past Medical History Hypertension Hyperlipidemia Melanoma COPD Past Surgical History Removal of skin cancer Allergies: Coded Allergies: No Known Allergies (Unverified , 02/14/17) Objective . Vital Signs Date Time Temp Pulse Resp B/P Pulse Ox O2 Delivery O2 Flow Rate FiO2 02/20/17 09:44 92 Nasal Cannula 3.00 02/20/17 08:40 98.2 106 20 181/79 91 02/20/17 06:24 98.1 90 174/79 94 02/20/17 05:49 83 02/20/17 03:35 97 168/77 93 02/20/17 02:28 98.0 88 151/70 96 02/19/17 22:00 91 02/19/17 20:30 97.8 95 18 158/72 91 02/19/17 17:41 95 Nasal Cannula 3.00 02/19/17 16:00 97.9 95 18 151/72 95 02/19/17 13:00 98.3 86 16 158/74 95 02/19/17 02/19/17 02/20/17 15:00 23:00 07:00 Intake Total 200 ml Balance 200 ml IV Total 50 ml Other 150 ml . Laboratory Tests Test 02/18/17 02/18/17 02/19/17 02/20/17 16:30 20:56 15:23 10:30 White Blood Count 34.8 TH/MM3 34.8 TH/MM3 39.0 TH/MM3 43.3 TH/MM3 Red Blood Count 4.28 MIL/MM3 4.32 MIL/MM3 4.38 MIL/MM3 4.56 MIL/MM3 Hemoglobin 11.2 GM/DL 11.7 GM/DL 11.7 GM/DL 12.5 GM/DL Hematocrit 35.0 % 35.4 % 36.1 % 36.9 % Mean Corpuscular Volume 81.8 FL 82.0 FL 82.5 FL 81.0 FL Mean Corpuscular Hemoglobin 26.2 PG 27.0 PG 26.6 PG 27.3 PG Mean Corpuscular Hemoglobin 32.0 % 33.0 % 32.3 % 33.7 % Concent Red Cell Distribution Width 14.1 % 14.0 % 14.1 % 14.1 % Platelet Count 347 TH/MM3 383 TH/MM3 358 TH/MM3 339 TH/MM3 Mean Platelet Volume 7.7 FL 7.9 FL 7.6 FL 7.8 FL Neutrophils (%) (Auto) 74.9 % 74.5 % % 79.2 % Lymphocytes (%) (Auto) 6.8 % 6.9 % % 5.1 % Monocytes (%) (Auto) 7.5 % 7.0 % % 6.4 % Eosinophils (%) (Auto) 10.3 % 11.0 % % 8.8 % Basophils (%) (Auto) 0.5 % 0.6 % % 0.5 % Neutrophils # (Auto) 26.0 TH/MM3 25.9 TH/MM3 TH/MM3 34.3 TH/MM3 Lymphocytes # (Auto) 2.4 TH/MM3 2.4 TH/MM3 TH/MM3 2.2 TH/MM3 Monocytes # (Auto) 2.6 TH/MM3 2.4 TH/MM3 TH/MM3 2.8 TH/MM3 Eosinophils # (Auto) 3.6 TH/MM3 3.8 TH/MM3 TH/MM3 3.8 TH/MM3 Basophils # (Auto) 0.2 TH/MM3 0.2 TH/MM3 TH/MM3 0.2 TH/MM3 CBC Comment AUTO DIFF AUTO DIFF AUTO DIFF AUTO DIFF Differential Total Cells 100 100 100 100 Counted Neutrophils % (Manual) 62 % 55 % 61 % 58 % Band Neutrophils % 15 % 26 % 22 % 20 % Lymphocytes % 5 % 2 % 6 % Monocytes % 11 % 5 % 9 % 8 % Eosinophils % 7 % 12 % 7 % 6 % Neutrophils # (Manual) 26.8 TH/MM3 28.2 TH/MM3 32.4 TH/MM3 33.8 TH/MM3 Differential Comment FINAL DIFF FINAL DIFF FINAL DIFF FINAL DIFF MANUAL MANUAL MANUAL MANUAL Toxic Granulation 1+ Toxic Vacuolation PRESENT Platelet Estimate NORMAL NORMAL NORMAL NORMAL Platelet Morphology Comment NORMAL NORMAL NORMAL NORMAL Basophils % 1 % 1 % Plasma Cells 1 % Red Cell Morphology Comment NORMAL Laboratory Tests Test 02/18/17 02/18/17 02/19/17 02/20/17 16:30 20:56 15:23 10:30 Sodium Level 137 MEQ/L 136 MEQ/L 135 MEQ/L 134 MEQ/L Potassium Level 3.8 MEQ/L 3.5 MEQ/L 3.4 MEQ/L 3.7 MEQ/L Chloride Level 102 MEQ/L 101 MEQ/L 101 MEQ/L 97 MEQ/L Carbon Dioxide Level 29.0 MEQ/L 25.6 MEQ/L 24.8 MEQ/L 22.6 MEQ/L Anion Gap 6 MEQ/L 9 MEQ/L 9 MEQ/L 14 MEQ/L Blood Urea Nitrogen 6 MG/DL 6 MG/DL 6 MG/DL 5 MG/DL Creatinine 0.62 MG/DL 0.64 MG/DL 0.59 MG/DL 0.62 MG/DL Estimat Glomerular Filtration 126 ML/MIN 122 ML/MIN 134 ML/MIN 126 ML/MIN Rate Random Glucose 108 MG/DL 104 MG/DL 119 MG/DL 117 MG/DL Calcium Level 8.9 MG/DL 9.0 MG/DL 8.9 MG/DL 9.2 MG/DL Microbiology Date/Time Procedure Status Source Growth 02/19/17 11:20 Gram Stain - Final Resulted Bronchial Washings Other 02/19/17 11:20 Bronchial Culture Resulted Bronchial Washings Other Pending 02/19/17 11:20 Acid Fast Stain - Final Resulted Bronchial Washings Right Lower Lobe NO ACID FAST BACILLI SEEN 02/19/17 11:20 Mycobacterial Culture Resulted Bronchial Washings Right Lower Lobe Pending 02/19/17 11:20 Fungal Smear Received Bronchial Washings Right Lower Lobe Pending 02/19/17 11:20 Fungal Culture Received Bronchial Washings Right Lower Lobe Pending Imaging Chest X-Ray 02/19/17 0000 Signed Impressions: Service Date/Time: Sunday, February 19, 2017 11:45 - CONCLUSION: Stable cavitary lesion in the right upper lung. No new or significant changes. Andres Rodgers MD Brain MRI 02/19/17 0000 Signed Impressions: Service Date/Time: Sunday, February 19, 2017 08:56 - CONCLUSION: Aging brain with generalized volume loss. No evidence of acute infarct, hemorrhage, mass or edema. Dane Hicks MD Neck CT 02/14/17 1305 Signed Impressions: Service Date/Time: February 15:34 - CONCLUSION: 1. No acute inflammatory changes or abnormal fluid collections identified within the neck. No adenopathy. Aleks Callahan MD Chest CT 02/14/17 0000 Signed Impressions: Service Date/Time: February 15:37 - CONCLUSION: 1. 7.4 cm cavitary mass in first segment right lower lobe with continuous right hilar adenopathy measuring up to 3 cm in diameter. Findings are most characteristic of a cavitary malignancy such as squamous cell carcinoma. There is some interstitial prominence in the right upper lobe and pleural thickening. This could be postinflammatory change but cannot exclude interstitial spread of tumor. Cavitary infection is also in the differential diagnosis. There is underlying moderate to severe emphysema. Aleks Callahan MD Physical Exam GENERAL: awake and alert, not in respiratory distress. SKIN: Warm and dry. No generalized rash, no ecchymoses and no evidence of embolic lesions. HEAD: Atraumatic. Normocephalic. No temporal wasting, or tenderness. EYES: [place] conjunctiva. No petechia or hemorrhage. Pupils equal, round and reactive to light. No scleral icterus. No injection or drainage. EARS, NOSE AND THROAT: Nose without bleeding or purulent nasal discharge. No sinus tenderness. Mucous membranes pink and moist. Edentulous. Has an indurated ulcer on tongue more on left side with NECK: Trachea midline. Supple and not tender, no meningeal signs. No lymphadenopathy, no swelling CARDIOVASCULAR: Regular rate and rhythm. No murmurs, rubs or gallops heard RESPIRATORY: Clear to auscultation. Breath sounds equal bilaterally. No rales , wheezing or rhonchi ABDOMEN: Soft, non-tender, nondistended. Bowel sounds present and normoactive. No guarding. No rebound. No organomegaly. EXTREMITIES: No clubbing, cyanosis, or edema.No joint effusion, has good ROM. No calf tenderness. Well perfused and warm. NEUROLOGICAL: Non-focal PSYCHIATRIC: Normal affect, calm and cooperative. LINE: No evidence of infection Assessment & Plan Remarks IMPRESSION Cavitary lesion RLL, with adenopathy, ?malignancy vs infection - TB typically upper lobes - concern with CA especially with history of smoking Persistent and worsening leukocytosis, etiology? - has increased eos which has worsened COPD Pain L side of head/ear and neck - CT neck ok - ?radiation pain,, ?cervical, ?occipital RECOMMENDATION Change Zosyn to Clinda and Cipro and see if Blactam causing increased eos Follow C/S and biopsy Heme has been consulted to evaluate leukocytosis Follow CBC Monitor progress Loraine Orr MD Feb 20, 2017 12:28
--- NOTE | 2017-02-20 13:03 | MB ---
cc: GORDY AGUILERA MD DATE OF CONSULTATION 02/19/2017 TIME OF CONSULTATION 6:30 a.m. CHIEF COMPLAINT The patient is reporting significant tongue pain radiating to the left ear. HISTORY OF PRESENT ILLNESS The patient is a 76-year-old male brought into the emergency room with shaking, as well as some pain to the left side of the face. The patient subsequently had been treated over the last several months with significant antibiotics for possible left ear problems and ear infections, as well as what turned out to be a lung infection. Reportedly, he was noted on admission to have a significantly elevated white count of over 34.6, as well as a significant cavitary lesions in the lung. I has taken priority through the hospital admission so far. To me, he is complaining of left-sided face pain and tongue pain that is causing some dysphagia. PAST MEDICAL HISTORY Significant for: 1. Diabetes 2. Hypertension 3. Previous skin cancers, no significant malignancy noted from Him. SOCIAL HISTORY He does have a history of ethanol use socially as well as a tobacco abuse history, but quit in 1995. PHYSICAL EXAM The patient is alert and oriented. HEENT: Exam reveals oral cavity and oropharynx with a left-sided tongue lesion of the oral tongue presenting on the oral dorsal portion of the tongue. This is very firm and is in the deep tongue musculature. There is only a small appearance of a tiny ulcer at the midline of the dorsal tongue at the lateral portion of the lesion. NECK: The neck exam reveals no palpable adenopathy. IMAGING Done at the time of his admission on February 14, a CT scan of the neck, there were no lesions noted on the CT scan, however, on close inspection and physical exam, there is some abnormality noted on the oral tongue. It was very subtle, but in conjunction with the physical exam it is identifiable. ASSESSMENT/PLAN At this time, the patient has a cavitary lesion in the lungs requiring a significant workup. I think it has taken current precedence, however, I do have concern that he has a possible aggressive lesion on his tongue that could accounting for his likely left ear radiation if there is some involving from the trigeminal or lingual nerve areas. At this time, he will require a biopsy of the tongue. Elements of a very deep musculature, it is going to be very difficult to get to. I do think his lung lesion needs to be worked up and identified prior to us moving forward. The patient will require intubation for this biopsy and will require some healing time. We will defer currently for his lung work. We will determine whether his biopsy will take place here in the hospital with this hospitalization or after discharge once the lung lesion is identified. Thank you for this consultation. Gordy Aguilera AT/DOROTEO /5:31 PM /12:48 PM
[2017-02-20] MEDS: CLINDAMYCIN INJ 600 MG in SODIUM CHLORIDE 0.9% INJ 100 ML IV SCH ×2 (14:31→21:18)
[2017-02-20] MEDS: CIPROFLOXACIN 750 MG TAB PO SCH ×2 (14:31→21:18)
--- NOTE | 2017-02-20 17:40 | HHI.PR ---
Subjective Remarks 76 YOWM with RLL cavitary lesion, DM,HTN feels better No fever no chills Had Bronch, bx RLL Has mucosal thickening and erythema RLL bronchus Bronchial bx negative Cytology pending Objective Vital Signs Vital Signs Date Time Temp Pulse Resp B/P Pulse Ox O2 Delivery O2 Flow Rate FiO2 02/20/17 16:16 98.2 102 20 171/84 93 02/20/17 12:30 98.3 101 20 167/81 94 02/20/17 09:44 92 Nasal Cannula 3.00 02/20/17 08:40 98.2 106 20 181/79 91 02/20/17 06:24 98.1 90 174/79 94 02/20/17 05:49 83 02/20/17 03:35 97 168/77 93 02/20/17 02:28 98.0 88 151/70 96 02/19/17 22:00 91 02/19/17 20:30 97.8 95 18 158/72 91 02/19/17 17:41 95 Nasal Cannula 3.00 I/O 02/19/17 02/19/17 02/19/17 02/20/17 02/20/17 02/20/17 07:00 15:00 23:00 07:00 15:00 23:00 Intake Total 200 ml 126 ml Balance 200 ml 126 ml IV Total 50 ml 126 ml Other 150 ml # Voids 1 Result Diagram: 02/20/17 1030 02/20/17 1030 Objective Remarks GENERAL: MBMN WM,NAD SKIN: Warm and dry. HEAD: Normocephalic. EYES: No scleral icterus. No injection or drainage. NECK: Supple, trachea midline. No JVD or lymphadenopathy. CARDIOVASCULAR: Regular rate and rhythm without murmurs, gallops, or rubs. RESPIRATORY: Breath sounds equal bilaterally. No accessory muscle use. GASTROINTESTINAL: Abdomen soft, non-tender, nondistended. MUSCULOSKELETAL: No cyanosis, or edema. BACK: Nontender without obvious deformity. No CVA tenderness. A/P Assessment and Plan RLL Cavitary lesion, Malig vs TB vs infection COPD DM HTN PLAN: Abx per ID Sputum PCR DC Isolation If Cytology negative, will need CT guided bx of lung ENT evaluated pt for growth on the tongue Henri Harrison MD Feb 20, 2017 17:40
[2017-02-20] MEDS ORDERED: amLODIPine BESYLATE 5 MG TAB PO ONE (20:45)
--- NOTE | 2017-02-20 21:42 | MB ---
cc: KRISTOPHER JEONG DATE OF CONSULTATION: 02/20/2017 REASON FOR CONSULTATION: Elevated white cell count. 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 PATIENT PROFILE: The patient is a 77 year-old white male, who is . He was once. He was born in [place]. He has lived in [place] for the past ten years. He lives alone. He is independent. He has two children, a son who lives in [place] and a daughter who lives in [place]. He is retired. He worked selling produce. He stopped smoking in January of 1996 and prior to this had smoked [id number] packs of cigarettes per day for 40 years for a total of 100 pack-years. There is no history of excessive alcohol use. HISTORY OF PRESENT ILLNESS: The patient is a 77 year-old male who has had progressive weight loss over the past four or five years, going from 215 to 140 pounds. During the past 6-12 months he has had increasing weakness and fatigue but this is not the problem that he brings to our attention. He came to the hospital because of shooting pains over the left scalp, going into the left forehead, cheek area, and below the jaw, and involving the left side of the tongue. The pain will be there one moment and then disappear. It is the worse pain that he has ever had, and it is for this single reason that he came to the hospital. When he arrived at the hospital it was apparent that there were other problems. He looked chronically ill and debilitated. He had a chest x-ray on 02/14 showing a 7 cm cavitary mass over the right hilar area. This was followed by a CT scan of the chest on 02/14/2017 showing a 7.4 cm cavitary mass in the right lower lobe with continuous right hilar adenopathy measuring up to 3 cm. This is characteristic of a cavitary malignancy such as a squamous cell cancer. A cavitary infection was also part of the differential. He has had no fevers, sputum production or hemoptysis. During the course of his evaluation he was found to have a small ulcer over the left middle anterior aspect of the tongue with the area firm below this. He had a CT scan of the neck on 02/14/2017 which is unremarkable, and apparently did not identify anything involving the tongue. He has been seen by ENT and was felt to have an ulcer with induration below suggestive of a squamous cell cancer. PAST SURGICAL HISTORY 1. Surgery left mastoid 1989. 2. 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 He was subsequently treated at [facility] with either chemotherapy or interferon without recurrence. PAST MEDICAL HISTORY: 1. COPD. 2. Ear problem. 3. Urinary tract infection. 4. Elevated cholesterol. 5. Hypertension. 6. Type 2 diabetes. MEDICATIONS PRIOR TO ADMISSION: 1. Finasteride 5 milligrams a day. 2. Lisinopril 10 mg a day. 3. Metformin 500 mg twice a day 4. Simvastatin 10 milligrams a day. ALLERGIES No known allergies. FAMILY HISTORY No history of lung cancer or lung disease. REVIEW OF SYSTEMS Vision. He has glasses. Hearing is diminished. No chest pain, palpitations. Respiratory: Slowly progressive shortness of breath. He states that he can walk a few blocks. GI: Decreased appetite, weight loss over 5 years from 215 to 140 pounds. : Normal. Musculoskeletal: No bone pain. Neurologic: No focal weakness. PHYSICAL EXAMINATION: The physical exam reveals a gentleman who is pleasant, able to answer questions appropriately. He appears chronically ill. He has significant diffuse muscle wasting and looks older than his 77 years. VITAL SIGNS: Blood pressure is 170/80, respiratory rate 20, pulse 100 afebrile. O2 sat 93%. Head: Head is normocephalic. Sclera and conjunctivae are normal. Oropharynx: No teeth. On the anterior tongue, left side, there is a small ulcer about 5 millimeters, and there is a significant area of induration extending beyond this and involving the deeper soft tissues probably in the order overall about a centimeter or less. There is no adenopathy in the neck, axilla or elsewhere. Heart: Regular rhythm. Lungs: Slight wheeze, poor movement of air. Abdomen: Without hepatosplenomegaly or masses. He is gaunt. Extremities: Without edema. Musculoskeletal: No bone pain, muscle wasting. Neurologic: No focal weakness. Of note the images of the CT scan were reviewed and not only do they show a cavitary mass and right hilar adenopathy but he has very extensive bullous emphysema and what looks like old inflammatory changes in the right upper lobe. Other tests include on 02/20/2017, hemoglobin of 12, hematocrit 36, white count 43,000, platelet count 339,000, 79% neutrophils, 5% lymphocytes, 6% monocytes. Lytes, BUN and creatinine unremarkable. Liver function tests 02/15/2017, normal, albumin is 2.7. ASSESSMENT/PLAN: 1. I have been asked to see the patient for an elevated white count. This is clearly reactive. This is reactive to the cavitary lesion in the right lung. It is not a primary marrow disorder. It requires no treatment. It is a reflection of what is going on elsewhere. 2. He has a cavitary lesion in the right lung. I suspect that the likelihood of this being a squamous cell cancer is high probably on the order of 80%, infection is possible but less likely. I called Dr. Harrison. If the cytology is negative, then Dr. Harrison will arrange for a needle biopsy of the lung. If this is a squamous cell carcinoma of the lung, I suspect he is not going to be a candidate for surgery, radiation or chemotherapy, given the extensive emphysema and poor performance status, but this will be dealt with later. I have ordered a CEA, as if this is significantly elevated, this may point towards a malignancy. 3: It is likely that he has a cancer of the anterior aspect of the tongue. It is visible. It can be biopsied. The ENT physician indicates that biopsy is not important at the present time. Due to the other underlying problems, I am in agreement. 4:The real reason the patient came to the hospital was uncontrolled pain which is neuropathic and consistent with a trigeminal neuralgia. He wants relief of this pain more than he wants anything else. Will consult Neurology. He may be a candidate for neurontin, Elavil, Tegretol, or lyrica. All of these medicines can be effective. I will defer this to neurology. The case has been discussed with Dr. Harrison. Thank you for the consultation. MD CECILIO Vee/RIC /7:08 PM /9:16 PM GUSTAVO
[2017-02-21] VITALS (10 sets, daily range): BP systolic 119–175; BP diastolic 64–82; PULSE 85–103; RESP 18–21; TEMP 97.9–98.6; O2SAT 91–96
[2017-02-21] MEDS: oxyCODONE/ACETAMINOPHEN 5 MG/325 MG TAB PO PRN ×4 (03:09→21:09)
[2017-02-21] MEDS: CLINDAMYCIN INJ 600 MG in SODIUM CHLORIDE 0.9% INJ 100 ML IV SCH ×3 (06:18→21:06)
[2017-02-21] MEDS: PREGABALIN 75 MG CAP PO SCH ×2 (06:18→11:50)
[2017-02-21] MEDS: INSULIN ASPART SUPPLEMENTAL SCALE SQ SCH ×4 (06:22→21:20)
[2017-02-21] MEDS ORDERED: GABAPENTIN 300 MG CAP PO PRN (08:00)
[2017-02-21] MEDS: LISINOPRIL 10 MG TAB PO SCH ×2 (08:54→21:05)
[2017-02-21] MEDS: CIPROFLOXACIN 750 MG TAB PO SCH ×2 (08:54→21:05)
[2017-02-21] MEDS: PRAVASTATIN SOD 20 MG TAB PO SCH (08:54)
[2017-02-21] MEDS: FAMOTIDINE 20 MG TAB PO SCH ×2 (08:54→21:05)
[2017-02-21] MEDS: FINASTERIDE 5 MG TAB PO SCH (08:54)
[2017-02-21] MEDS: amLODIPine BESYLATE 5 MG TAB PO SCH ×2 (08:54→21:05)
[2017-02-21] MEDS: HEPARIN SODIUM - SQ 10,000 UNITS/ML VIAL SQ SCH ×2 (08:55→21:06)
[2017-02-21] MEDS: SODIUM CHLORIDE 0.9% FLUSH 10 ML FLUSH IV FLUSH SCH ×2 (08:57→21:06)
[2017-02-21] MEDS: NYSTAT/DIPHENHY/LIDO MOUTHWASH (Adult) 120ML SWISH-SWAL SCH ×4 (08:58→21:06)
--- NOTE | 2017-02-21 09:28 | MB ---
cc: SINDY CAIN DATE OF CONSULTATION: 02/21/2017 HISTORY OF PRESENT ILLNESS A 77-year-old right-handed man with a history of hypertension, non-insulin diabetes, hypercholesterolemia, melanoma in 1976 status post resection of his left chest. He does take a baby aspirin occasionally. He has developed difficulty and pain with swallowing but also pain in the left parietal region down the side of his neck and periauricular region, not particularly associated with swallowing, somewhat better with the Percocet and Lyrica, been going on for about 3 weeks. He has had weight loss over about a year. REVIEW OF SYSTEMS He denied any history of atrial fibrillation, Coumadin, PA, stent, angioplasty, CABG, renal, hepatic, pulmonary disease, thyroid disease, lupus, ulcer, seizure, stroke. SOCIAL HISTORY Quit smoking in 1995, occasionally has a drink, lives by himself. FAMILY HISTORY Negative for cancer, seizure, stroke. PAST MEDICAL HISTORY As above, also: 1. Some recent infections in the right ear, left ear. 2. Lung infection. 3. UTI. MEDICATIONS Medications at home: 1. Simvastatin. 2. Finasteride. 3. Lisinopril. 4. Metformin. PHYSICAL EXAMINATION VITAL SIGNS: Afebrile, 89, 21, 129/65. NECK: No carotid bruits. HEART: Heart was regular rhythm but tachycardic. NEURO: Pupils are equal. Visual larios are full. Extraocular movements intact without nystagmus. Face is symmetric with normal sensation. Tongue has a mass on the left side but moves it well bilaterally. Pharynx elevated symmetrically. Facial sensation was intact as was the occipital region. The left TM was a little bit whitish but I did not see any definite abnormality compared to the right. There is no drift. He had normal strength in upper and lower extremities bilaterally. DTRs trace throughout. Toes downgoing bilaterally. Pinprick is intact throughout including the face and occiput region. Speech is fluent. He is not aphasic. It hurts when he swallows. LABORATORY DATA White count 43,000, hematocrit 37, platelet count 339. TB test was negative. UA negative. Basic metabolic profile normal. LFTs are normal. Troponin is negative. Albumin low at 2.7. Coags normal. IMAGING STUDIES Chest x-ray showed a cavitary mass in the right hilum 7 cm. He had a chest CT, possible squamous cell carcinoma. He had a CT scan of his neck which was negative. He had MRI of his brain that was read as normal. Review of the films, some diffuse atrophy mild. On the contrast images there is a vague possible enhancement of medulla, this could be artifactual, I do not see anything definitely abnormal on the parenchyma, there is question if on the clivus whether there is not some erosion on the left side and certainly some asymmetry there by the sphenoid sinus. IMPRESSION This left-sided head pain, probably linked to whatever systemic process is going on. He had a lung biopsy which was nonrevealing. Dr. Flores did see the patient. He felt it was a high chance that this could be a squamous cell cancer. I will have to review the films with primary care doctor. I do not see where he is on Lyrica right now. I will try him on some Gabapentin and see if that works, but the pain is not totally typical in this location for trigeminal neuralgia, nor in the fact that it has been fairly constant for hours at a time, but I question whether there could be some erosion of the left clivus region, which could give him referred pain in the back of the head. Or this just may be asymmetry to the sphenoid sinus, a little bit more superiorly. He has a CT scan of the cervical spine, the clivus looks fairly well intact, will have to review with radiology. MD ISA Lewis/VALERIY /7:41 AM /8:43 AM
--- NOTE | 2017-02-21 11:04 | PD.ONC.PN ---
Subjective Subjective Remarks Afebrile overnight. Continues to have left sided head pain. Improves somewhat with Percocet and then returns. Objective Data Date Time Temp Pulse Resp B/P Pulse Ox O2 Delivery O2 Flow Rate FiO2 02/21/17 10:07 91 02/21/17 08:38 98.1 98 18 175/82 91 02/21/17 05:15 98.1 89 21 129/65 94 02/21/17 00:30 98.2 85 20 119/64 93 02/20/17 20:30 106 02/20/17 20:00 98.3 106 20 179/82 93 02/20/17 16:16 98.2 102 20 171/84 93 02/20/17 12:30 98.3 101 20 167/81 94 02/21/17 02/21/17 02/21/17 07:00 15:00 23:00 Intake Total 600 ml Output Total 600 ml Balance 0 ml Result Diagram: 02/20/17 1030 02/20/17 1030 Culture Results Microbiology Date/Time Procedure Status Source Growth 02/19/17 11:20 Gram Stain - Final Complete Bronchial Washings Other 02/19/17 11:20 Bronchial Culture - Final Complete Bronchial Washings Other HEAVY GROWTH NORMAL RESPIRATORY SUSHIL 02/19/17 11:20 Acid Fast Stain - Final Resulted Bronchial Washings Right Lower Lobe NO ACID FAST BACILLI SEEN 02/19/17 11:20 Mycobacterial Culture Resulted Bronchial Washings Right Lower Lobe Pending 02/19/17 11:20 Fungal Smear - Final Resulted Bronchial Washings Right Lower Lobe NO FUNGAL ELEMENTS SEEN. 02/19/17 11:20 Fungal Culture Resulted Bronchial Washings Right Lower Lobe Pending Administered Medications Medications (Trade) Dose Ordered Sig/Joceline Route PRN Reason Start Time Stop Time Status Last Admin Dose Admin Ondansetron HCl (Zofran Inj) 4 mg Q6H PRN IV NAUSEA 02/14/17 20:30 02/19/17 08:05 Docusate Sodium (Colace) 100 mg BID PRN PO CONSTIPATION 02/14/17 20:30 02/16/17 16:38 Sodium Chloride (NS Flush) 2 ml BID IV FLUSH 02/14/17 21:00 02/21/17 08:57 Heparin Sodium (Porcine) (Heparin Inj) 5,000 units Q12H SQ 02/14/17 22:00 02/21/17 08:55 Finasteride (Proscar) 5 mg DAILY PO 02/15/17 09:00 02/21/17 08:54 Pravastatin Sodium (Pravachol) 20 mg DAILY PO CM 02/15/17 09:00 02/21/17 08:54 Oxycodone/ Acetaminophen (Percocet 5-325 Mg) 2 tab Q6H PRN PO PAIN SCALE 4 TO 10 02/15/17 08:00 02/21/17 08:54 Famotidine (Pepcid) 20 mg BID PO 02/15/17 21:00 02/21/17 08:54 Multi-Ingredient Mouthwash/Gargle (Magic Mouthwash Adult Liq) 5 ml QID SWISH-SWAL 02/18/17 09:00 02/21/17 08:58 Lisinopril (Prinivil) 10 mg BID PO 02/18/17 21:00 02/21/17 08:54 Pregabalin 75 mg 75 mg Q8HR PO 02/19/17 22:00 02/21/17 06:18 Clindamycin Phosphate/Sodium Chloride (Cleocin Inj/NS Inj) 104 ml @ 208 mls/hr Q8H IV 02/20/17 14:00 02/21/17 06:18 Ciprofloxacin (Cipro) 750 mg Q12HR PO 02/20/17 13:00 02/21/17 08:54 Amlodipine Besylate (Norvasc) 5 mg BID PO 02/21/17 09:00 02/21/17 08:54 Objective Remarks GENERAL: Elderly male upright in bed in [facility]. SKIN: Warm and dry. HEAD: Normocephalic. EYES: No injection or drainage. NECK: Supple, trachea midline. CARDIOVASCULAR: +S1/S2 RESPIRATORY: inspiratory and expiratory wheeze. On supplemental O2 via NC GASTROINTESTINAL: Abdomen soft, non-tender, nondistended. EXTREMITIES: No cyanosis NEUROLOGICAL: awake and alert, normal speech. moving all extremities. Assessment/Plan Assessment 77y/o male with leukocytosis, cachexia, cavitary right lung lesion, and mouth lesion. Plan 1. await cytology. If cytology negative the patient will need needle biopsy of the lung. (Dr. Harrison will arrange) 2. also await CEA level. 3. continue pain management for left sided facial pain. Attending Statement The exam, history, and the medical decision-making described in the above note were completed with the assistance of the mid-level provider. I reviewed and agree with the findings presented. I attest that I had a [id number] encounter with the patient on the same day, and personally performed and documented my assessment and findings in the medical record. Neurontin started and pain is less. appreciate input from neurology. Await cytology and if negative he will require a bx of cavity. He is very frail and if this is a malignancy the outcome will not be favorable. Caryn Mosley Feb 21, 2017 11:04 Alvaro Flores MD Feb 21, 2017 21:05
[2017-02-21 11:21] LABS: HEMATOCRIT 37.1 % (39.0-51.0); MEAN CORPUSCULAR HEMOGLOBIN 26.1 PG (27.0-34.0); MEAN CORPUSCULAR HGB CONC 31.9 % (32.0-36.0); PLATELET COUNT 367 TH/MM3 (150-450); RED BLOOD COUNT 4.53 MIL/MM3 (4.50-5.90); RED CELL DISTRIBUTION WIDTH 14.1 % (11.6-17.2); WHITE BLOOD COUNT 39.4 TH/MM3 (4.0-11.0)
[2017-02-21 11:30] LABS: HEMO FLAGS AUTO DIFF
[2017-02-21 11:48] LABS: BICARBONATE 23.5 MEQ/L (21.0-32.0)
[2017-02-21 12:15] LABS: BANDS 17 % (0-6); EOSINOPHILS 5 % (0-4); NEUTROPHIL # MANUAL DIFF 33.9 TH/MM3 (1.8-7.7); POLYS (SEG NEUTROPHILS) 69 % (16-70); WBC DIFF SAMPLE 100
[2017-02-21 12:16] LABS: PLATELET ESTIMATE SMEAR NORMAL (NORMAL); PLATELET MORPHOLOGY NORMAL (NORMAL); SCAN/DIFF FINAL DIFF MANUAL; TOXIC VACUOLATION PRESENT (NONE SEEN)
--- NOTE | 2017-02-21 13:45 | HHI.PR ---
Subjective Remarks Patient alert and oriented. Has remained afebrile. Continues to have pain off and on on left side of head Objective Vital Signs Date Time Temp Pulse Resp B/P Pulse Ox O2 Delivery O2 Flow Rate FiO2 02/21/17 12:59 96 Nasal Cannula 2.00 02/21/17 12:22 97.9 103 20 168/77 95 02/21/17 10:07 91 02/21/17 08:38 98.1 98 18 175/82 91 02/21/17 05:15 98.1 89 21 129/65 94 02/21/17 00:30 98.2 85 20 119/64 93 02/20/17 20:30 106 02/20/17 20:00 98.3 106 20 179/82 93 02/20/17 16:16 98.2 102 20 171/84 93 I/O 02/20/17 02/20/17 02/20/17 02/21/17 02/21/17 02/21/17 06:59 14:59 22:59 06:59 14:59 22:59 Intake Total 126 ml 600 ml 100 ml Output Total 600 ml Balance 126 ml 0 ml 100 ml Intake Oral 400 ml IV Total 126 ml 200 ml 100 ml Output Urine Total 600 ml # Bowel Movements 0 Result Diagram: 02/21/17 1043 02/21/17 1043 Procedures speech eval pending Objective Remarks GENERAL: Alert and cooperative SKIN: Warm and dry. Mass noted on tongue HEAD: Normocephalic. EYES: No scleral icterus. No injection or drainage. NECK: Supple, trachea midline. No JVD or lymphadenopathy. CARDIOVASCULAR: Regular rate and rhythm without murmurs, gallops, or rubs. RESPIRATORY: Breath sounds equal bilaterally. No accessory muscle use. GASTROINTESTINAL: Abdomen soft, non-tender, nondistended. MUSCULOSKELETAL: No cyanosis, or edema. BACK: Nontender without obvious deformity. No CVA tenderness. Medications and IVs Current Medications Medications (Trade) Dose Ordered Sig/Joceline Route Start Time Stop Time Status Last Admin (Tylenol) 650 mg Q4H PRN PO 02/14/17 20:30 (Zofran Inj) 4 mg Q6H PRN IV 02/14/17 20:30 02/19/17 08:05 (Colace) 100 mg BID PRN PO 02/14/17 20:30 02/16/17 16:38 (NS Flush) 2 ml UNSCH PRN IV FLUSH 02/14/17 20:30 (NS Flush) 2 ml BID IV FLUSH 02/14/17 21:00 02/21/17 08:57 (Heparin Inj) 5,000 units Q12H SQ 02/14/17 22:00 02/21/17 08:55 (Narcan Inj) 0.4 mg UNSCH PRN IV 02/14/17 20:30 (Proscar) 5 mg DAILY PO 02/15/17 09:00 02/21/17 08:54 (Glucophage) 500 mg BIDPC PO 02/15/17 09:00 Hold (Pravachol) 20 mg DAILY PO 02/15/17 09:00 02/21/17 08:54 (Percocet 5-325 Mg) 2 tab Q6H PRN PO 02/15/17 08:00 02/21/17 08:54 (D50w (Vial) Inj) 50 ml UNSCH PRN IV 02/15/17 10:15 (Glucagon Inj) 1 mg UNSCH PRN OTHER 02/15/17 10:15 (Pepcid) 20 mg BID PO 02/15/17 21:00 02/21/17 08:54 (Magic Mouthwash Adult Liq) 5 ml QID SWISH-SWAL 02/18/17 09:00 02/21/17 13:10 (Prinivil) 10 mg BID PO 02/18/17 21:00 02/21/17 08:54 Pregabalin 75 mg 75 mg Q8HR PO 02/19/17 22:00 02/21/17 06:18 (Cleocin Inj/NS Inj) 104 ml @ 208 mls/hr Q8H IV 02/20/17 14:00 02/21/17 13:10 (Cipro) 750 mg Q12HR PO 02/20/17 13:00 02/21/17 08:54 (Norvasc) 5 mg BID PO 02/21/17 09:00 02/21/17 08:54 (Neurontin) 300 mg TID PRN PO 02/21/17 08:00 Assessment and Plan Problem List: (1) Cavitary lesion of lung Status: Acute Plan: Pulmonary consulted and managing Antibiotics changed to clindamycin and ciprofloxacin WBC decreased to 39.4 Right lower love cavity mass. Possible cavitary malignancy however inflammatory or infectious process. Sputum culture ordered with heavy normal growth Bronchoscopy done (2) Sepsis Status: Acute Plan: WBC elevated at 39.4 ID consulted and following. Hematology consulted and following. Per note if cytology negative then a needle biopsy of lung to be done. Has remained afebrile Antibiotics changed to clindamycin and ciprofloxacin (3) Hypertension Status: Acute Plan: Continues to be elevated at times. Will continue to monitor and make changes tomorrow if consistent. (4) Diabetes mellitus Status: Acute Plan: Blood sugars ordered AC and HS. Metformin on hold. SS ordered as needed (5) HLD (hyperlipidemia) Status: Acute Plan: Continue statin. (6) Tongue abnormality Status: Acute Plan: Left sided facial discomfort. Tongue mass noted. ENT consultation ordered MRI with no acute findings. (7) Trigeminal neuralgia of left side of face Status: Acute Plan: Neurology consulted and following. Gabapentin added. Assessment and Plan Assessment and plan discussed with Dr. Norton Discussed Condition With Nursing Physician Attestation I and the PUPIL PERSONNEL WORKER have both examined this patient and reviewed this note and I agree with these findings and plan of care. Malcolm Norton DO Problem Qualifiers (1) Sepsis: Qualified Code: A41.9 - Sepsis, due to unspecified organism Cira Eldridge. [facility] Feb 21, 2017 13:45
[2017-02-21] MEDS: RESP: ALBUTEROL 2.5 MG/IPRATROPIUM 0.5 MG NEB (SCH) NEB ×2 (15:53→20:55)
--- NOTE | 2017-02-21 17:28 | HHI.PR ---
Subjective Remarks 76 YOWM with RLL cavitary lesion, DM,HTN feels better No fever no chills Had Bronch, bx RLL Has mucosal thickening and erythema RLL bronchus Bronchial bx negative Cytology pending DW Objective Vital Signs Vital Signs Date Time Temp Pulse Resp B/P Pulse Ox O2 Delivery O2 Flow Rate FiO2 02/21/17 16:00 98.1 100 18 165/80 91 02/21/17 12:59 96 Nasal Cannula 2.00 02/21/17 12:22 97.9 103 20 168/77 95 02/21/17 10:07 91 02/21/17 08:38 98.1 98 18 175/82 91 02/21/17 05:15 98.1 89 21 129/65 94 02/21/17 00:30 98.2 85 20 119/64 93 02/20/17 20:30 106 02/20/17 20:00 98.3 106 20 179/82 93 I/O 02/20/17 02/20/17 02/20/17 02/21/17 02/21/17 02/21/17 07:00 15:00 23:00 07:00 15:00 23:00 Intake Total 126 ml 600 ml 460 ml Output Total 600 ml Balance 126 ml 0 ml 460 ml Intake Oral 400 ml 360 ml IV Total 126 ml 200 ml 100 ml Output Urine Total 600 ml # Voids 3 # Bowel Movements 0 2 Result Diagram: 02/21/17 1043 02/21/17 1043 Objective Remarks GENERAL: MBMN WM,NAD SKIN: Warm and dry. HEAD: Normocephalic. EYES: No scleral icterus. No injection or drainage. NECK: Supple, trachea midline. No JVD or lymphadenopathy. CARDIOVASCULAR: Regular rate and rhythm without murmurs, gallops, or rubs. RESPIRATORY: Breath sounds equal bilaterally. No accessory muscle use. GASTROINTESTINAL: Abdomen soft, non-tender, nondistended. MUSCULOSKELETAL: No cyanosis, or edema. BACK: Nontender without obvious deformity. No CVA tenderness. A/P Assessment and Plan RLL Cavitary lesion, Malig vs TB vs infection COPD DM HTN PLAN: Abx per ID Sputum PCR DC Isolation If Cytology negative, will need CT guided bx of lung ENT evaluated pt for growth on the tongue Cytology still pending Henri Harrison MD Feb 21, 2017 17:28
[2017-02-21] MEDS ORDERED: GABAPENTIN 100 MG CAP PO SCH (18:00)
[2017-02-21] MEDS ORDERED: POTASSIUM CHLORIDE 20 MEQ CONTROLLED RELEASE TAB PO ONE (21:30)
[2017-02-22] VITALS (11 sets, daily range): BP systolic 142–176; BP diastolic 65–79; PULSE 89–103; RESP 18–20; TEMP 97.6–99; O2SAT 94–97
[2017-02-22] MEDS: RESP: ALBUTEROL 2.5 MG/IPRATROPIUM 0.5 MG NEB (SCH) NEB ×4 (02:50→22:23)
[2017-02-22] MEDS: oxyCODONE/ACETAMINOPHEN 5 MG/325 MG TAB PO PRN ×6 (02:50→21:44)
[2017-02-22] MEDS: CLINDAMYCIN INJ 600 MG in SODIUM CHLORIDE 0.9% INJ 100 ML IV SCH ×3 (05:45→20:38)
[2017-02-22] MEDS: INSULIN ASPART SUPPLEMENTAL SCALE SQ SCH ×4 (05:47→20:38)
--- NOTE | 2017-02-22 06:46 | HHI.PR ---
Subjective Remarks Patient alert and oriented. Has remained afebrile. Continues to have pain off and on on left side of head no change noted with addition of gabapentin Objective Vital Signs Date Time Temp Pulse Resp B/P Pulse Ox O2 Delivery O2 Flow Rate FiO2 02/22/17 04:00 Nasal Cannula 2.00 02/22/17 02:52 98.4 94 18 143/68 95 02/22/17 01:33 99.0 102 18 150/71 95 02/22/17 00:00 Nasal Cannula 2.00 02/21/17 20:57 95 Nasal Cannula 2.00 02/21/17 20:00 Nasal Cannula 2.00 02/21/17 19:35 98.6 101 20 155/71 94 02/21/17 19:35 94 Nasal Cannula 2.00 02/21/17 17:41 103 02/21/17 16:00 98.1 100 18 165/80 91 02/21/17 12:59 96 Nasal Cannula 2.00 02/21/17 12:22 97.9 103 20 168/77 95 02/21/17 10:07 91 02/21/17 08:38 98.1 98 18 175/82 91 I/O 02/21/17 02/21/17 02/21/17 02/22/17 02/22/17 02/22/17 07:00 15:00 23:00 07:00 15:00 23:00 Intake Total 600 ml 460 ml 100 ml 100 ml Output Total 600 ml Balance 0 ml 460 ml 100 ml 100 ml Intake Oral 400 ml 360 ml IV Total 200 ml 100 ml 100 ml 100 ml Output Urine Total 600 ml # Voids 3 # Bowel Movements 0 2 Result Diagram: 02/21/17 1043 02/21/17 1043 Procedures Bronchoscopy 8th Objective Remarks GENERAL: Alert and cooperative SKIN: Warm and dry. Mass noted on tongue HEAD: Normocephalic. EYES: No scleral icterus. No injection or drainage. NECK: Supple, trachea midline. No JVD or lymphadenopathy. CARDIOVASCULAR: Regular rate and rhythm without murmurs, gallops, or rubs. RESPIRATORY: Breath sounds equal bilaterally. No accessory muscle use. GASTROINTESTINAL: Abdomen soft, non-tender, nondistended. MUSCULOSKELETAL: No cyanosis, or edema. BACK: Nontender without obvious deformity. No CVA tenderness. Medications and IVs Current Medications Medications (Trade) Dose Ordered Sig/Joceline Route Start Time Stop Time Status Last Admin (Tylenol) 650 mg Q4H PRN PO 02/14/17 20:30 (Zofran Inj) 4 mg Q6H PRN IV 02/14/17 20:30 02/19/17 08:05 (Colace) 100 mg BID PRN PO 02/14/17 20:30 02/16/17 16:38 (NS Flush) 2 ml UNSCH PRN IV FLUSH 02/14/17 20:30 (NS Flush) 2 ml BID IV FLUSH 02/14/17 21:00 02/21/17 21:06 (Heparin Inj) 5,000 units Q12H SQ 02/14/17 22:00 02/21/17 21:06 (Narcan Inj) 0.4 mg UNSCH PRN IV 02/14/17 20:30 (Proscar) 5 mg DAILY PO 02/15/17 09:00 02/21/17 08:54 (Glucophage) 500 mg BIDPC PO 02/15/17 09:00 Hold (Pravachol) 20 mg DAILY PO 02/15/17 09:00 02/21/17 08:54 (D50w (Vial) Inj) 50 ml UNSCH PRN IV 02/15/17 10:15 (Glucagon Inj) 1 mg UNSCH PRN OTHER 02/15/17 10:15 (Pepcid) 20 mg BID PO 02/15/17 21:00 02/21/17 21:05 (Magic Mouthwash Adult Liq) 5 ml QID SWISH-SWAL 02/18/17 09:00 02/21/17 21:06 Lisinopril 10 mg 10 mg BID PO 02/18/17 21:00 02/21/17 21:05 (Cleocin Inj/NS Inj) 104 ml @ 208 mls/hr Q8H IV 02/20/17 14:00 02/22/17 05:45 (Cipro) 750 mg Q12HR PO 02/20/17 13:00 02/21/17 21:05 (Norvasc) 5 mg BID PO 02/21/17 09:00 02/21/17 21:05 (Neurontin) 300 mg TID PRN PO 02/21/17 08:00 02/21/17 14:03 (Neurontin) 100 mg TID PO 02/21/17 18:00 02/21/17 17:38 (Percocet 5-325 Mg) 2 tab Q4H PRN PO 02/21/17 18:15 02/22/17 06:36 Assessment and Plan Problem List: (1) Cavitary lesion of lung Status: Acute Plan: Pulmonary consulted and managing Antibiotics changed to clindamycin and ciprofloxacin Right lower love cavity mass. Possible cavitary malignancy however inflammatory or infectious process. Sputum culture ordered with heavy normal growth Bronchoscopy done cytology pending. Needle biopsy may be needed (2) Sepsis Status: Acute Plan: ID consulted and following. Hematology consulted and following. Per note if cytology negative then a needle biopsy of lung to be done. Has remained afebrile On clindamycin and ciprofloxacin (3) Hypertension Status: Acute Plan: blood pressure better controlled at 143/68 today. Continue current treatment. (4) Diabetes mellitus Status: Acute Plan: Blood sugars ordered AC and HS. Metformin on hold. SS ordered as needed (5) HLD (hyperlipidemia) Status: Acute Plan: Continue statin. (6) Tongue abnormality Status: Acute Plan: Left sided facial discomfort. Tongue mass noted. ENT consultation MRI with no acute findings. (7) Trigeminal neuralgia of left side of face Status: Acute Plan: Neurology consulted and following. Gabapentin added with no noticeable change in discomfort. Pain medication increased last night per Dr. Norton (8) Hypokalemia Status: Acute Plan: Potassium 3.0 yesterday replacement given with recheck today. Assessment and Plan Assessment and plan discussed with Dr. Norton Discussed Condition With Nursing Physician Attestation Physician Attestation I and the RN SHIFT MGR have both examined this patient and reviewed this note and I agree with these findings and plan of care. Malcolm Norton DO Problem Qualifiers (1) Sepsis: Qualified Code: A41.9 - Sepsis, due to unspecified organism Cira Eldridge [facility] Feb 22, 2017 06:46
--- NOTE | 2017-02-22 08:06 | HHI.PR ---
Subjective Remarks still pain with swallow Objective Vital Signs Date Time Temp Pulse Resp B/P Pulse Ox O2 Delivery O2 Flow Rate FiO2 02/22/17 04:00 Nasal Cannula 2.00 02/22/17 02:52 98.4 94 18 143/68 95 02/22/17 01:33 99.0 102 18 150/71 95 02/22/17 00:00 Nasal Cannula 2.00 02/21/17 20:57 95 Nasal Cannula 2.00 02/21/17 20:00 Nasal Cannula 2.00 02/21/17 19:35 98.6 101 20 155/71 94 02/21/17 19:35 94 Nasal Cannula 2.00 02/21/17 17:41 103 02/21/17 16:00 98.1 100 18 165/80 91 02/21/17 12:59 96 Nasal Cannula 2.00 02/21/17 12:22 97.9 103 20 168/77 95 02/21/17 10:07 91 02/21/17 08:38 98.1 98 18 175/82 91 I/O 02/21/17 02/21/17 02/21/17 02/22/17 02/22/17 02/22/17 07:00 15:00 23:00 07:00 15:00 23:00 Intake Total 600 ml 460 ml 100 ml 100 ml Output Total 600 ml Balance 0 ml 460 ml 100 ml 100 ml Intake Oral 400 ml 360 ml IV Total 200 ml 100 ml 100 ml 100 ml Output Urine Total 600 ml # Voids 3 # Bowel Movements 0 2 Result Diagram: 02/21/17 1043 02/21/17 1043 Procedures Bronchoscopy 8th Objective Remarks awake alert pain with swallow Assessment and Plan Assessment and Plan imp this am appears pain only with swallow he cannot give me straight answer on that try tegretol and inc gabapentin 600 tid watch and make sure not too sleepy on it may be in some part a glossopharyngeal neuralgia i dw rads yest no mass base of skull or sphenoid process seen can we just bx tongue? Pavan Rooney MD Feb 22, 2017 08:06
[2017-02-22] MEDS: carBAMazepine 200 MG TAB PO SCH ×2 (08:31→20:16)
[2017-02-22] MEDS: GABAPENTIN 300 MG CAP PO SCH ×3 (08:31→17:10)
[2017-02-22] MEDS: amLODIPine BESYLATE 5 MG TAB PO SCH ×2 (08:32→20:18)
[2017-02-22] MEDS: FAMOTIDINE 20 MG TAB PO SCH ×2 (08:32→20:18)
[2017-02-22] MEDS: LISINOPRIL 10 MG TAB PO SCH ×2 (08:32→20:16)
[2017-02-22] MEDS: HEPARIN SODIUM - SQ 10,000 UNITS/ML VIAL SQ SCH ×2 (08:32→20:19)
[2017-02-22] MEDS: PRAVASTATIN SOD 20 MG TAB PO SCH (08:32)
[2017-02-22] MEDS: FINASTERIDE 5 MG TAB PO SCH (08:32)
[2017-02-22] MEDS: CIPROFLOXACIN 750 MG TAB PO SCH ×2 (08:32→20:17)
[2017-02-22] MEDS: NYSTAT/DIPHENHY/LIDO MOUTHWASH (Adult) 120ML SWISH-SWAL SCH ×4 (08:33→20:19)
[2017-02-22] MEDS: ONDANSETRON HCL 4 MG/2 ML VIAL IV PRN ×2 (08:35→14:49)
[2017-02-22] MEDS: SODIUM CHLORIDE 0.9% FLUSH 10 ML FLUSH IV FLUSH SCH ×2 (08:38→20:19)
[2017-02-22 10:23] LABS: HEMATOCRIT 35.3 % (39.0-51.0); MEAN CELL VOLUME 81.1 FL (80.0-100.0); MEAN CORPUSCULAR HEMOGLOBIN 26.4 PG (27.0-34.0); MEAN CORPUSCULAR HGB CONC 32.6 % (32.0-36.0); PLATELET COUNT 369 TH/MM3 (150-450); RED BLOOD COUNT 4.36 MIL/MM3 (4.50-5.90); RED CELL DISTRIBUTION WIDTH 14.2 % (11.6-17.2)
[2017-02-22 10:25] LABS: REVIEW FLAG FINAL
[2017-02-22 10:52] LABS: RAPID PLASMA REAGIN SCREEN NON-REACTIVE (NON-REACTVE)
[2017-02-22 10:57] LABS: BICARBONATE 25.9 MEQ/L (21.0-32.0); POTASSIUM 3.1 MEQ/L (3.5-5.1)
--- NOTE | 2017-02-22 10:59 | HHI.IDPN ---
Subjective Subjective Remarks Patient is a 76-year-old male, presented to the hospital complaining of shakiness as well as pain on the left side of his head. Patient apparently has been treated for multiple infections including bilateral ear infection, pneumonia, and UTI. Patient has occasional coughing with minimal sputum production. On presentation he was afebrile. His WBCs 34,000. He had a chest x-ray with an abnormality in the right lung, and CT of the chest showed evidence of cavitary lesion in the right lung with adenopathy. Patient stated when he had some cough a couple months ago, he had a chest x-ray done and he was told that there is a finding on his right lung. He was given antibiotics for treatment of pneumonia. Patient denies any nausea or vomiting, or any syncopal episode. He denies any fever or chills or sweats. He is not had any significant weight loss. No urinary complaint, no GI complaints. Patient has not lived [place]. He has not had any exposure to anyone with known tuberculosis. Patient had recently been seen near specialist, and looked at his ears and he was told that they were all clear. Patient complains of pain on his left ear, and it involves the whole left side of his head all the way to the neck. And occasionally he would have some swallowing difficulty. Infectious disease consultation has been requested to evaluate the patient with cavitary lesion in the right lung. Notes reviewed Temps ok Bronch biopsy not helpful cytology pending C/O sore area on his tongue, and L side of neck/head Not SOB Not coughing much No hemoptysis WBC down to 38 TB quantiferon negative TB PCR pending Bronch C/S normal anton Bronch AFB negative Brain MRI negative Antibiotics cipro Clindamycin Lines PIV Past Medical History Hypertension Hyperlipidemia Melanoma COPD Past Surgical History Removal of skin cancer Allergies: Coded Allergies: No Known Allergies (Unverified , 02/14/17) Objective . Vital Signs Date Time Temp Pulse Resp B/P Pulse Ox O2 Delivery O2 Flow Rate FiO2 02/22/17 08:42 97 Nasal Cannula 2.00 02/22/17 08:41 94 Nasal Cannula 2.00 02/22/17 08:14 99 02/22/17 08:00 98.0 103 20 176/79 94 02/22/17 04:00 Nasal Cannula 2.00 02/22/17 02:52 98.4 94 18 143/68 95 02/22/17 01:33 99.0 102 18 150/71 95 02/22/17 00:00 Nasal Cannula 2.00 02/21/17 20:57 95 Nasal Cannula 2.00 02/21/17 20:00 Nasal Cannula 2.00 02/21/17 19:35 98.6 101 20 155/71 94 02/21/17 19:35 94 Nasal Cannula 2.00 02/21/17 17:41 103 02/21/17 16:00 98.1 100 18 165/80 91 02/21/17 12:59 96 Nasal Cannula 2.00 02/21/17 12:22 97.9 103 20 168/77 95 02/21/17 02/21/17 02/22/17 15:00 23:00 07:00 Intake Total 460 ml 100 ml 100 ml Balance 460 ml 100 ml 100 ml Intake Oral 360 ml IV Total 100 ml 100 ml 100 ml # Voids 3 # Bowel Movements 2 . Laboratory Tests Test 02/21/17 02/22/17 10:43 09:52 White Blood Count 39.4 TH/MM3 38.0 TH/MM3 Red Blood Count 4.53 MIL/MM3 4.36 MIL/MM3 Hemoglobin 11.8 GM/DL 11.5 GM/DL Hematocrit 37.1 % 35.3 % Mean Corpuscular Volume 82.0 FL 81.1 FL Mean Corpuscular Hemoglobin 26.1 PG 26.4 PG Mean Corpuscular Hemoglobin 31.9 % 32.6 % Concent Red Cell Distribution Width 14.1 % 14.2 % Platelet Count 367 TH/MM3 369 TH/MM3 Mean Platelet Volume 7.6 FL 7.4 FL Neutrophils (%) (Auto) % Lymphocytes (%) (Auto) % Monocytes (%) (Auto) % Eosinophils (%) (Auto) % Basophils (%) (Auto) % Neutrophils # (Auto) TH/MM3 Lymphocytes # (Auto) TH/MM3 Monocytes # (Auto) TH/MM3 Eosinophils # (Auto) TH/MM3 Basophils # (Auto) TH/MM3 CBC Comment AUTO DIFF Differential Total Cells 100 Counted Neutrophils % (Manual) 69 % Band Neutrophils % 17 % Lymphocytes % 4 % Monocytes % 5 % Eosinophils % 5 % Neutrophils # (Manual) 33.9 TH/MM3 Differential Comment FINAL DIFF MANUAL Toxic Vacuolation PRESENT Platelet Estimate NORMAL Platelet Morphology Comment NORMAL Red Cell Morphology Comment NORMAL Erythrocyte Sedimentation Rate 21 mm/hr Hematology Comments Laboratory Tests Test 02/21/17 10:43 Sodium Level 133 MEQ/L Potassium Level 3.0 MEQ/L Chloride Level 96 MEQ/L Carbon Dioxide Level 23.5 MEQ/L Anion Gap 14 MEQ/L Blood Urea Nitrogen 6 MG/DL Creatinine 0.64 MG/DL Estimat Glomerular Filtration 122 ML/MIN Rate Random Glucose 184 MG/DL Calcium Level 9.4 MG/DL Carcinoembryonic Antigen 0.3 NG/ML Vitamin B12 Level 767 PG/ML Microbiology Date/Time Procedure Status Source Growth 02/19/17 11:20 Gram Stain - Final Complete Bronchial Washings Other 02/19/17 11:20 Bronchial Culture - Final Complete Bronchial Washings Other HEAVY GROWTH NORMAL RESPIRATORY ANTON 02/19/17 11:20 Acid Fast Stain - Final Resulted Bronchial Washings Right Lower Lobe NO ACID FAST BACILLI SEEN 02/19/17 11:20 Mycobacterial Culture Resulted Bronchial Washings Right Lower Lobe Pending 02/19/17 11:20 Fungal Smear - Final Resulted Bronchial Washings Right Lower Lobe NO FUNGAL ELEMENTS SEEN. 02/19/17 11:20 Fungal Culture Resulted Bronchial Washings Right Lower Lobe Pending Imaging Chest X-Ray 02/19/17 0000 Signed Impressions: Service Date/Time: Sunday, February 19, 2017 11:45 - CONCLUSION: Stable cavitary lesion in the right upper lung. No new or significant changes. Andres Rodgers MD Brain MRI 02/19/17 0000 Signed Impressions: Service Date/Time: Sunday, February 19, 2017 08:56 - CONCLUSION: Aging brain with generalized volume loss. No evidence of acute infarct, hemorrhage, mass or edema. Dane Hicks MD Neck CT 02/14/17 1305 Signed Impressions: Service Date/Time: February 15:34 - CONCLUSION: 1. No acute inflammatory changes or abnormal fluid collections identified within the neck. No adenopathy. Aleks Callahan MD Chest CT 02/14/17 0000 Signed Impressions: Service Date/Time: February 15:37 - CONCLUSION: 1. 7.4 cm cavitary mass in first segment right lower lobe with continuous right hilar adenopathy measuring up to 3 cm in diameter. Findings are most characteristic of a cavitary malignancy such as squamous cell carcinoma. There is some interstitial prominence in the right upper lobe and pleural thickening. This could be postinflammatory change but cannot exclude interstitial spread of tumor. Cavitary infection is also in the differential diagnosis. There is underlying moderate to severe emphysema. Aleks Callahan MD Physical Exam GENERAL: awake and alert, not in respiratory distress. SKIN: Warm and dry. No generalized rash, no ecchymoses and no evidence of embolic lesions. HEAD: Atraumatic. Normocephalic. No temporal wasting, or tenderness. EYES: [place] conjunctiva. No petechia or hemorrhage. Pupils equal, round and reactive to light. No scleral icterus. No injection or drainage. EARS, NOSE AND THROAT: Nose without bleeding or purulent nasal discharge. No sinus tenderness. Mucous membranes pink and moist. Edentulous. Has an indurated ulcer on tongue more on left side with NECK: Trachea midline. Supple and not tender, no meningeal signs. No lymphadenopathy, no swelling CARDIOVASCULAR: Regular rate and rhythm. No murmurs, rubs or gallops heard RESPIRATORY: Clear to auscultation. Breath sounds equal bilaterally. No rales , wheezing or rhonchi ABDOMEN: Soft, non-tender, nondistended. Bowel sounds present and normoactive. No guarding. No rebound. No organomegaly. EXTREMITIES: No clubbing, cyanosis, or edema.No joint effusion, has good ROM. No calf tenderness. Well perfused and warm. NEUROLOGICAL: Non-focal PSYCHIATRIC: Normal affect, calm and cooperative. LINE: No evidence of infection Assessment & Plan Remarks IMPRESSION Cavitary lesion RLL, with adenopathy, ?malignancy vs infection - TB typically upper lobes - concern with CA especially with history of smoking Tongue lesion, per ENT suspicious for malignancy Persistent and worsening leukocytosis, etiology? COPD Pain L side of head/ear and neck - CT neck ok - ?radiation pain,, ?cervical, ?occipital RECOMMENDATION Continue Clinda and Cipro Follow C/S and biopsy Need tissue for diagnosis Follow CBC Monitor progress Dr Lucia available if needed this weekend I will check patient again on Saturday Loraine Orr MD Feb 22, 2017 10:59
[2017-02-22 16:13] LABS: ANA SCREEN NEG (NEG)
--- NOTE | 2017-02-22 17:38 | HHI.PR ---
Subjective Remarks 76 YOWM with RLL cavitary lesion, DM,HTN feels better No fever no chills Had Bronch, bx RLL Has mucosal thickening and erythema RLL bronchus Bronchial bx negative Cytology Features consistant with NSCLC Objective Vital Signs Vital Signs Date Time Temp Pulse Resp B/P Pulse Ox O2 Delivery O2 Flow Rate FiO2 02/22/17 16:00 97.6 90 20 159/70 95 02/22/17 15:25 95 Nasal Cannula 2.00 02/22/17 12:00 98.1 99 20 142/65 94 02/22/17 08:42 97 Nasal Cannula 2.00 02/22/17 08:41 94 Nasal Cannula 2.00 02/22/17 08:14 99 02/22/17 08:00 98.0 103 20 176/79 94 02/22/17 04:00 Nasal Cannula 2.00 02/22/17 02:52 98.4 94 18 143/68 95 02/22/17 01:33 99.0 102 18 150/71 95 02/22/17 00:00 Nasal Cannula 2.00 02/21/17 20:57 95 Nasal Cannula 2.00 02/21/17 20:00 Nasal Cannula 2.00 02/21/17 19:35 98.6 101 20 155/71 94 02/21/17 19:35 94 Nasal Cannula 2.00 02/21/17 17:41 103 I/O 02/21/17 02/21/17 02/21/17 02/22/17 02/22/17 02/22/17 07:00 15:00 23:00 07:00 15:00 23:00 Intake Total 600 ml 460 ml 100 ml 100 ml 360 ml Output Total 600 ml Balance 0 ml 460 ml 100 ml 100 ml 360 ml Intake Oral 400 ml 360 ml 360 ml IV Total 200 ml 100 ml 100 ml 100 ml Output Urine Total 600 ml # Voids 3 2 # Bowel Movements 0 2 1 Result Diagram: 02/22/1795102/22/17951 Objective Remarks GENERAL: MBMN WM,NAD SKIN: Warm and dry. HEAD: Normocephalic. EYES: No scleral icterus. No injection or drainage. NECK: Supple, trachea midline. No JVD or lymphadenopathy. CARDIOVASCULAR: Regular rate and rhythm without murmurs, gallops, or rubs. RESPIRATORY: Breath sounds equal bilaterally. No accessory muscle use. GASTROINTESTINAL: Abdomen soft, non-tender, nondistended. MUSCULOSKELETAL: No cyanosis, or edema. BACK: Nontender without obvious deformity. No CVA tenderness. A/P Assessment and Plan RLL Cavitary lesion, --NSCLC on cytology COPD DM HTN PLAN: Abx per ID Sputum PCR ENT evaluated pt for growth on the tongue Oncology following Henri Harrison MD Feb 22, 2017 17:38
[2017-02-22] MEDS ORDERED: POTASSIUM CHLORIDE 20 MEQ CONTROLLED RELEASE TAB PO ONE (19:15)
[2017-02-22] MEDS: POTASSIUM CHLORIDE 20 MEQ CONTROLLED RELEASE TAB PO SCH (21:44)
[2017-02-23] VITALS (9 sets, daily range): BP systolic 141–172; BP diastolic 66–81; PULSE 94–115; RESP 16–21; TEMP 97.5–98.7; O2SAT 92–95
[2017-02-23] MEDS: oxyCODONE/ACETAMINOPHEN 5 MG/325 MG TAB PO PRN ×3 (00:15→09:01)
[2017-02-23] MEDS: RESP: ALBUTEROL 2.5 MG/IPRATROPIUM 0.5 MG NEB (SCH) NEB ×4 (03:13→21:49)
[2017-02-23] MEDS: CLINDAMYCIN INJ 600 MG in SODIUM CHLORIDE 0.9% INJ 100 ML IV SCH ×3 (05:36→22:14)
[2017-02-23] MEDS: INSULIN ASPART SUPPLEMENTAL SCALE SQ SCH ×4 (05:36→20:28)
[2017-02-23 08:13] LABS: HEMATOCRIT 34.2 % (39.0-51.0); MEAN CELL VOLUME 80.3 FL (80.0-100.0); MEAN CORPUSCULAR HEMOGLOBIN 26.7 PG (27.0-34.0); MEAN CORPUSCULAR HGB CONC 33.3 % (32.0-36.0); PLATELET COUNT 341 TH/MM3 (150-450); RED BLOOD COUNT 4.26 MIL/MM3 (4.50-5.90); RED CELL DISTRIBUTION WIDTH 14.7 % (11.6-17.2); WHITE BLOOD COUNT 40.9 TH/MM3 (4.0-11.0)
[2017-02-23 08:27] LABS: REVIEW FLAG FINAL
[2017-02-23 08:34] LABS: BICARBONATE 28.6 MEQ/L (21.0-32.0); POTASSIUM 3.6 MEQ/L (3.5-5.1)
[2017-02-23] MEDS: ONDANSETRON HCL 4 MG/2 ML VIAL IV PRN (08:55)
[2017-02-23] MEDS: HEPARIN SODIUM - SQ 10,000 UNITS/ML VIAL SQ SCH ×2 (08:58→22:14)
[2017-02-23] MEDS: carBAMazepine 200 MG TAB PO SCH ×2 (09:00→20:08)
[2017-02-23] MEDS: amLODIPine BESYLATE 5 MG TAB PO SCH ×2 (09:00→20:09)
[2017-02-23] MEDS: FAMOTIDINE 20 MG TAB PO SCH ×2 (09:00→20:08)
[2017-02-23] MEDS: POTASSIUM CHLORIDE 20 MEQ CONTROLLED RELEASE TAB PO SCH ×2 (09:00→20:09)
[2017-02-23] MEDS: LISINOPRIL 10 MG TAB PO SCH ×2 (09:00→20:08)
[2017-02-23] MEDS: CIPROFLOXACIN 750 MG TAB PO SCH ×2 (09:00→20:09)
[2017-02-23] MEDS: PRAVASTATIN SOD 20 MG TAB PO SCH (09:00)
[2017-02-23] MEDS: GABAPENTIN 300 MG CAP PO SCH ×3 (09:00→15:00)
[2017-02-23] MEDS: FINASTERIDE 5 MG TAB PO SCH (09:00)
[2017-02-23] MEDS: NYSTAT/DIPHENHY/LIDO MOUTHWASH (Adult) 120ML SWISH-SWAL SCH ×4 (09:01→20:28)
[2017-02-23] MEDS: SODIUM CHLORIDE 0.9% FLUSH 10 ML FLUSH IV FLUSH SCH ×2 (09:01→20:10)
--- NOTE | 2017-02-23 10:16 | HHI.PR ---
Subjective Remarks 76 YOWM with RLL cavitary lesion, DM,HTN feels better No fever no chills Had Bronch, bx RLL Has mucosal thickening and erythema RLL bronchus Bronchial bx negative Cytology Features consistant with NSCLC Has headache, nausea Objective Vital Signs Vital Signs Date Time Temp Pulse Resp B/P Pulse Ox O2 Delivery O2 Flow Rate FiO2 02/23/17 08:00 98.1 96 16 168/77 93 02/23/17 07:06 94 02/23/17 04:00 98.1 95 18 152/69 95 02/23/17 00:00 97.5 102 18 141/66 94 02/23/17 00:00 97.5 102 18 141/66 94 02/22/17 22:23 96 Nasal Cannula 1.50 02/22/17 20:41 89 02/22/17 20:41 96 Nasal Cannula 2.00 02/22/17 20:00 97.7 98 18 145/67 96 02/22/17 16:00 97.6 90 20 159/70 95 02/22/17 15:25 95 Nasal Cannula 2.00 02/22/17 12:00 98.1 99 20 142/65 94 I/O 02/22/17 02/22/17 02/22/17 02/23/17 02/23/17 02/23/17 07:00 15:00 23:00 07:00 15:00 23:00 Intake Total 100 ml 360 ml Output Total 100 ml Balance 100 ml 360 ml -100 ml Intake Oral 360 ml IV Total 100 ml Output Urine Total 100 ml # Voids 2 1 # Bowel Movements 1 Result Diagram: 02/23/1771402/23/1715 Objective Remarks GENERAL: MBMN WM,NAD SKIN: Warm and dry. HEAD: Normocephalic. EYES: No scleral icterus. No injection or drainage. NECK: Supple, trachea midline. No JVD or lymphadenopathy. CARDIOVASCULAR: Regular rate and rhythm without murmurs, gallops, or rubs. RESPIRATORY: Breath sounds equal bilaterally. No accessory muscle use. GASTROINTESTINAL: Abdomen soft, non-tender, nondistended. MUSCULOSKELETAL: No cyanosis, or edema. BACK: Nontender without obvious deformity. No CVA tenderness. A/P Assessment and Plan RLL Cavitary lesion, --NSCLC on cytology COPD DM HTN PLAN: Abx per ID Sputum PCR ENT evaluated pt for growth on the tongue Oncology following Morphine 2 mg X1 for headache. Henri Harrison MD Feb 23, 2017 10:16
--- NOTE | 2017-02-23 10:43 | HHI.PR ---
Subjective Remarks cytology indicates NSCLC pt having severe nausea today will add reglan increase zofran add iv fluids Objective Vital Signs Date Time Temp Pulse Resp B/P Pulse Ox O2 Delivery O2 Flow Rate FiO2 02/23/17 08:00 98.1 96 16 168/77 93 02/23/17 07:06 94 02/23/17 04:00 98.1 95 18 152/69 95 02/23/17 00:00 97.5 102 18 141/66 94 02/23/17 00:00 97.5 102 18 141/66 94 02/22/17 22:23 96 Nasal Cannula 1.50 02/22/17 20:41 89 02/22/17 20:41 96 Nasal Cannula 2.00 02/22/17 20:00 97.7 98 18 145/67 96 02/22/17 16:00 97.6 90 20 159/70 95 02/22/17 15:25 95 Nasal Cannula 2.00 02/22/17 12:00 98.1 99 20 142/65 94 I/O 02/22/17 02/22/17 02/22/17 02/23/17 02/23/17 02/23/17 07:00 15:00 23:00 07:00 15:00 23:00 Intake Total 100 ml 360 ml Output Total 100 ml Balance 100 ml 360 ml -100 ml Intake Oral 360 ml IV Total 100 ml Output Urine Total 100 ml # Voids 2 1 # Bowel Movements 1 Result Diagram: 02/23/17 0715 02/23/17 0715 Procedures Bronchoscopy 8th Objective Remarks GENERAL:frail white male patient. SKIN: Warm and dry. HEAD: Normocephalic. EYES: No scleral icterus. No injection or drainage. NECK: Supple, trachea midline. No JVD or lymphadenopathy. CARDIOVASCULAR: Regular rate and rhythm without murmurs, gallops, or rubs. RESPIRATORY: Breath sounds rhonchi throughout GASTROINTESTINAL: Abdomen soft, non-tender, nondistended. nauseated EXTREMITIES: No cyanosis, or edema. NEUROLOGICAL: Awake, alert, and oriented x 3. Non-focal.uncomfortable with increased pain . Medications and IVs Inpatient Medications Acetaminophen (Tylenol) 650 mg Q4H PRN PO TEMP > 100.4; Start 02/14/17 at 20:30 ; Stop 02/14/17 at 21:46; Status DC Albuterol/ Ipratropium (Duoneb Neb) 1 ampule Q6HR NEB NEB Last administered on 02/22/17 22:23; Start 02/21/17 at 16:00 Albuterol/ Ipratropium 1 ampule 1 ampule Q4HR WHILE AWAKE NEB NEB Last administered on 02/18/17 08:35; Start 02/15/17 at 08:00; Stop 02/19/17 at 08:00; Status DC Amlodipine Besylate (Norvasc) 5 mg BID PO Last administered on 02/23/17 09:00 ; Start 02/21/17 at 09:00 Carbamazepine (TEGretol) 200 mg Q12HR PO Last administered on 02/23/17 09:00; Start 02/22/17 at 09:00 Ciprofloxacin (Cipro) 750 mg Q12HR PO Last administered on 02/23/17 09:00; Start 02/20/17 at 13:00 Clindamycin Phosphate/Sodium Chloride (Cleocin Inj/NS Inj) 104 ml @ 208 mls/hr Q8H IV Last administered on 02/23/17 05:36; Start 02/20/17 at 14:00 Dextrose (D50w (Vial) Inj) 50 ml UNSCH PRN IV HYPOGLYCEMIA-SEE COMMENTS; Start 02/15/17 at 10:15 Docusate Sodium (Colace) 100 mg BID PRN PO CONSTIPATION Last administered on 16:38; Start 02/14/17 at 20:30 Famotidine 20 mg 20 mg BID PO Last administered on 02/23/17 09:00; Start at 21:00 Finasteride (Proscar) 5 mg DAILY PO Last administered on 02/23/17 09:00; Start 02/15/17 at 09:00 Gabapentin (Neurontin) 600 mg TID PO Last administered on 02/23/17 09:00; Start 02/22/17 at 09:00 Glucagon (Glucagon Inj) 1 mg UNSCH PRN OTHER HYPOGLYCEMIA-SEE COMMENTS; Start 02/15/17 at 10:15 Heparin Sodium (Porcine) (Heparin Inj) 5,000 units Q12H SQ Last administered on 02/23/17 08:58; Start 02/14/17 at 22:00 Insulin Aspart (NovoLOG SUPPLEMENTAL SCALE) 1 ACHS SLIDING SCALE SQ Last administered on 02/22/17 10:34; Start 02/15/17 at 11:00 Lisinopril (Prinivil) 10 mg BID PO Last administered on 02/23/17 09:00; Start 02/18/17 at 21:00 Metformin HCl (Glucophage) 500 mg BIDPC PO ; Start 02/15/17 at 09:00; Status Hold Miscellaneous Information ALL NURSING DEPARTME... UNSCH PRN .XX SEE LABEL COMMENTS; Start 02/19/17 at 11:35; Stop 02/20/17 at 11:34; Status DC Multi-Ingredient Mouthwash/Gargle 5 ml 5 ml QID SWISH-SWAL Last administered on 02/23/17 09:01; Start 02/18/17 at 09:00 Naloxone HCl (Narcan Inj) 0.4 mg UNSCH PRN IV SEE LABEL COMMENTS; Start at 20:30 Ondansetron HCl (Zofran Inj) 4 mg Q6H PRN IV NAUSEA Last administered on 08:55; Start 02/14/17 at 20:30 Oxycodone/ Acetaminophen (Percocet 5-325 Mg) 2 tab Q4H PRN PO PAIN SCALE 4 TO 10 Last administered on 02/23/17 09:01; Start 02/21/17 at 18:15 Pharmacy Profile Note (Vancomycin Consult Pharmacy) 0 ml @ 0 mls/hr UNSCH OTHER ; Start 02/15/17 at 07:00; Stop 02/18/17 at 15:31; Status DC Piperacillin Sod/ Tazobactam Sod (Zosyn 3.375 Gm Premix) 50 ml @ 100 mls/hr Q6H IV Last administered on 02/20/17 08:20; Start 02/15/17 at 15:00; Stop at 12:29; Status DC Piperacillin Sod/ Tazobactam Sod (Zosyn 4.5 Gm Premix) 100 ml @ 200 mls/hr ONCE ONCE IV Last administered on 02/14/17 14:48; Start 02/14/17 at 14:30; Stop 02/14/17 at 14:59; Status DC Pneumococcal Polyvalent Vaccine (Pneumovax-23 Inj) 25 mcg ONCE ONCE IM Last administered on 02/16/17 09:31; Start 02/16/17 at 09:00; Stop 02/16/17 at 09:01; Status DC Potassium Chloride (KCl) 20 meq ONCE ONCE PO Last administered on 02/22/17 20 :38; Start 02/22/17 at 19:15; Stop 02/22/17 at 19:16; Status DC Pravastatin Sodium (Pravachol) 20 mg DAILY PO CM Last administered on 02/23/17 09:00; Start 02/15/17 at 09:00 Pregabalin 75 mg 75 mg Q8HR PO Last administered on 02/21/17 06:18; Start 02/19 at 22:00; Stop 02/21/17 at 17:12; Status DC Sodium Chloride (NS Flush) 2 ml BID IV FLUSH Last administered on 02/23/17 09: 01; Start 02/14/17 at 21:00 Sodium Chloride 2 ml 2 ml UNSCH PRN IVF FLUSH AFTER USING IV ACCESS; Start 02/14 at 13:15; Stop 02/14/17 at 21:43; Status DC Vancomycin HCl 1000 mg/Sodium Chloride 250 ml @ 250 mls/hr ONCE ONCE IV Last administered on 02/14/17 15:58; Start 02/14/17 at 14:30; Stop 02/14/17 at 15:29; Status DC Vancomycin HCl/ Sodium Chloride (Vancomycin Inj/ NS 250 ml Inj) 262.5 ml @ 250 mls/hr Q12H IV Last administered on 02/18/17 04:55; Start 02/18/17 at 05:00; Stop 02/18/17 at 15:31; Status DC Assessment and Plan Problem List: (1) Cavitary lesion of lung Status: Acute Plan: pulmonary consult NSCLC defer to onc (2) Sepsis Status: Acute Plan: on iv abx Assessment and Plan pneumoniae continue iv abx pipracillin and vancomycin Discussed Condition With patient and nursing will add reglan increase zofran and pain meds ck lab in am Problem Qualifiers (1) Sepsis: Qualified Code: A41.9 - Sepsis, due to unspecified organism Malcolm Norton DO Feb 23, 2017 10:43
[2017-02-23] MEDS ORDERED: MORPHINE SULFATE 4 MG/ML INJ IV ONE (11:00)
[2017-02-23] MEDS ORDERED: PHENYTOIN INJ 250 MG/5 ML VIAL IV ONE (11:00)
--- NOTE | 2017-02-23 11:12 | HHI.PR ---
Review/Management Daily Summary neuro coverage he feels miserable nausea and unable to raise tegretol will try iv dilantin for neuralgia, keep tegretol and gabapentin Subjective Subjective Comments left facial pain..miserable Active Medications Current Medications Medications (Trade) Dose Ordered Sig/Joceline Route Start Time Stop Time Status Last Admin (Tylenol) 650 mg Q4H PRN PO 02/14/17 20:30 (Zofran Inj) 4 mg Q6H PRN IV 02/14/17 20:30 02/23/17 08:55 (Colace) 100 mg BID PRN PO 02/14/17 20:30 02/16/17 16:38 (NS Flush) 2 ml UNSCH PRN IV FLUSH 02/14/17 20:30 (NS Flush) 2 ml BID IV FLUSH 02/14/17 21:00 02/23/17 09:01 (Heparin Inj) 5,000 units Q12H SQ 02/14/17 22:00 02/23/17 08:58 (Narcan Inj) 0.4 mg UNSCH PRN IV 02/14/17 20:30 (Proscar) 5 mg DAILY PO 02/15/17 09:00 02/23/17 09:00 (Glucophage) 500 mg BIDPC PO 02/15/17 09:00 Hold (Pravachol) 20 mg DAILY PO 02/15/17 09:00 02/23/17 09:00 (D50w (Vial) Inj) 50 ml UNSCH PRN IV 02/15/17 10:15 (Glucagon Inj) 1 mg UNSCH PRN OTHER 02/15/17 10:15 (Pepcid) 20 mg BID PO 02/15/17 21:00 02/23/17 09:00 (Magic Mouthwash Adult Liq) 5 ml QID SWISH-SWAL 02/18/17 09:00 02/23/17 09:01 Lisinopril 10 mg 10 mg BID PO 02/18/17 21:00 02/23/17 09:00 (Cleocin Inj/NS Inj) 104 ml @ 208 mls/hr Q8H IV 02/20/17 14:00 02/23/17 05:36 (Cipro) 750 mg Q12HR PO 02/20/17 13:00 02/23/17 09:00 (Norvasc) 5 mg BID PO 02/21/17 09:00 02/23/17 09:00 (Neurontin) 300 mg TID PRN PO 02/21/17 08:00 02/21/17 14:03 (Percocet 5-325 Mg) 2 tab Q4H PRN PO 02/21/17 18:15 02/23/17 09:01 (Neurontin) 600 mg TID PO 02/22/17 09:00 02/23/17 09:00 (TEGretol) 200 mg Q12HR PO 02/22/17 09:00 02/23/17 09:00 (KCl) 20 meq Q12HR PO 02/22/17 21:00 02/23/17 09:00 (Dilantin Inj) 100 mg Q6H IV 02/23/17 17:00 (Zofran Odt) 8 mg Q4H PRN PO 02/23/17 10:45 UNV (Reglan Inj) 5 mg Q8H PRN IV PUSH 02/23/17 10:45 UNV Morphine Sulfate 2 mg 2 mg Q3H PRN IV PUSH 02/23/17 11:00 (D5W-1/2 NS 1000 ml Inj) 1,000 ml @ 84 mls/hr [id number] IV 02/23/17 12:00 Allergies Allergies Coded Allergies No Known Allergies (Unverified02/14/17) Exam I&O / VS 02/22/17 02/22/17 02/23/17 14:59 22:59 06:59 Intake Total 360 ml Balance 360 ml Intake Oral 360 ml # Voids 2 1 # Bowel Movements 1 Vital Signs Date Time Temp Pulse Resp B/P Pulse Ox O2 Delivery O2 Flow Rate FiO2 02/23/17 08:00 98.1 96 16 168/77 93 02/23/17 07:06 94 02/23/17 04:00 98.1 95 18 152/69 95 02/23/17 00:00 97.5 102 18 141/66 94 02/23/17 00:00 97.5 102 18 141/66 94 02/22/17 22:23 96 Nasal Cannula 1.50 02/22/17 20:41 89 02/22/17 20:41 96 Nasal Cannula 2.00 02/22/17 20:00 97.7 98 18 145/67 96 02/22/17 16:00 97.6 90 20 159/70 95 02/22/17 15:25 95 Nasal Cannula 2.00 02/22/17 12:00 98.1 99 20 142/65 94 Objective Micro and Labs Laboratory Tests Test 02/23/17 07:15 White Blood Count 40.9 Red Blood Count 4.26 Hemoglobin 11.4 Hematocrit 34.2 Mean Corpuscular Volume 80.3 Mean Corpuscular Hemoglobin 26.7 Mean Corpuscular Hemoglobin 33.3 Concent Red Cell Distribution Width 14.7 Platelet Count 341 Mean Platelet Volume 7.9 Sodium Level 135 Potassium Level 3.6 Chloride Level 98 Carbon Dioxide Level 28.6 Anion Gap 8 Blood Urea Nitrogen 6 Creatinine 0.47 Estimat Glomerular Filtration 174 Rate Random Glucose 109 Calcium Level 9.2 Date/Time Procedure Status Source Growth 02/19/17 11:20 Gram Stain - Final Complete Bronchial Washings Other 02/19/17 11:20 Bronchial Culture - Final Complete Bronchial Washings Other HEAVY GROWTH NORMAL RESPIRATORY SUSHIL 02/19/17 11:20 Fungal Smear - Final Resulted Bronchial Washings Right Lower Lobe NO FUNGAL ELEMENTS SEEN. 02/19/17 11:20 Fungal Culture Resulted Bronchial Washings Right Lower Lobe Pending 02/19/17 11:20 Acid Fast Stain - Final Resulted Bronchial Washings Right Lower Lobe NO ACID FAST BACILLI SEEN 02/19/17 11:20 Mycobacterial Culture Resulted Bronchial Washings Right Lower Lobe Pending Herson Wu MD Feb 23, 2017 11:12
[2017-02-23] MEDS: DEXT 5%-NACL 0.45% 1000 ML INJ 1,000 ML IV SCH ×2 (11:27→23:57)
[2017-02-23] MEDS: METOCLOPRAMIDE HCL 10 MG/2 ML VIAL IV PUSH SCH ×2 (11:35→20:10)
[2017-02-23] MEDS ORDERED: ONDANSETRON ODT 4 MG TAB PO PRN (12:00)
[2017-02-23] MEDS: MORPHINE SULFATE 4 MG/ML INJ IV PUSH PRN ×2 (14:52→20:09)
[2017-02-23] MEDS: PHENYTOIN INJ 100 MG/2 ML VIAL IV SCH ×2 (16:31→22:13)
[2017-02-24] VITALS (10 sets, daily range): BP systolic 130–178; BP diastolic 69–84; PULSE 90–118; RESP 17–20; TEMP 97.7–98.8; O2SAT 91–96
[2017-02-24] MEDS: RESP: ALBUTEROL 2.5 MG/IPRATROPIUM 0.5 MG NEB (SCH) NEB ×4 (04:00→21:52)
[2017-02-24] MEDS: CLINDAMYCIN INJ 600 MG in SODIUM CHLORIDE 0.9% INJ 100 ML IV SCH ×3 (04:56→22:12)
[2017-02-24] MEDS: METOCLOPRAMIDE HCL 10 MG/2 ML VIAL IV PUSH SCH ×3 (04:57→22:12)
[2017-02-24] MEDS: PHENYTOIN INJ 100 MG/2 ML VIAL IV SCH ×4 (04:57→22:15)
[2017-02-24] MEDS: INSULIN ASPART SUPPLEMENTAL SCALE SQ SCH ×4 (05:01→22:29)
--- NOTE | 2017-02-24 06:32 | RADRPT ---
EXAM DATE/TIME: 02/24/2017 06:06 [facility] COMPARISON: MRI BRAIN W & W/O CONTRAST, February 19, 2017, 8:56. INDICATIONS : Altered mental status. RADIATION DOSE: 32.62 CTDIvol (mGy) MEDICAL HISTORY : Cardiovascular disease. Hypertension. Benign prostatic hyperplasia, (BPH)Renal calculi. Diabetes. Zoe anoma. SURGICAL HISTORY : None. ENCOUNTER: Initial ACUITY: 1 day PAIN SCALE: 0/10 LOCATION: cranial TECHNIQUE: Multiple contiguous axial images were obtained of the head. Using automated exposure control and adj ustment of the mA and/or kV according to patient size, radiation dose was kept as low as reasonably a chievable to obtain optimal diagnostic quality images. DICOM format image data is available electro nically for review and comparison. FINDINGS: CEREBRUM: Cerebral atrophy. Cavum septum pellucidum. The ventricles are normal for age. No evidence of midline shift, mass lesion, hemorrhage or acute infarction. No extra-axial fluid collections are seen. POSTERIOR FOSSA: The cerebellum and brainstem are intact. The 4th ventricle is midline. The cerebellopontine angle i s unremarkable. EXTRACRANIAL: The visualized portion of the orbits is intact. SKULL: The calvaria is intact. No evidence of skull fracture. CONCLUSION: No acute intracranial abnormality. Alban Chatman MD on February 24, 2017 at 6:30 Board Certified Radiologist. This report was verified electronically.
--- NOTE | 2017-02-24 08:53 | HHI.PR ---
Subjective Remarks PT HAVING HALLUCINATIONS LAST PM NEW PAIN MED STARTED MS Objective Vital Signs Date Time Temp Pulse Resp B/P Pulse Ox O2 Delivery O2 Flow Rate FiO2 02/24/17 05:10 98.8 110 19 178/69 94 02/24/17 03:24 95 Nasal Cannula 2.00 02/24/17 00:30 97.9 90 19 130/84 94 02/23/17 21:50 92 Nasal Cannula 2.00 02/23/17 20:40 97.9 110 21 157/66 92 02/23/17 20:30 113 02/23/17 20:30 96 Nasal Cannula 2.00 02/23/17 16:00 98.7 111 16 166/75 93 02/23/17 12:00 98.2 115 16 172/81 93 I/O 02/23/17 02/23/17 02/23/17 02/24/17 02/24/17 02/24/17 06:59 14:59 22:59 06:59 14:59 22:59 Intake Total 240 ml 903 ml 450 ml Output Total 300 ml 650 ml 500 ml Balance -60 ml 253 ml -50 ml Intake Oral 240 ml 650 ml 450 ml IV Total 253 ml Output Urine Total 300 ml 650 ml 500 ml # Voids 3 # Bowel Movements 0 0 0 Result Diagram: 02/23/17 0715 02/23/17 0715 Imaging Last [address] 02/24/17 0000 Signed Impressions: Service Date/Time: Friday, February 24, 2017 06:06 - CONCLUSION: No acute intracranial abnormality. Alban Chatman MD Procedures Bronchoscopy 8th Objective Remarks GENERAL:frail white male patient. SKIN: Warm and dry. HEAD: Normocephalic. EYES: No scleral icterus. No injection or drainage. NECK: Supple, trachea midline. No JVD or lymphadenopathy. CARDIOVASCULAR: Regular rate and rhythm without murmurs, gallops, or rubs. RESPIRATORY: Breath sounds rhonchi throughout GASTROINTESTINAL: Abdomen soft, non-tender, nondistended. nauseated EXTREMITIES: No cyanosis, or edema. NEUROLOGICAL: Awake, alert, and oriented x 3.intermittant confusion but alert now Non-focal.uncomfortable with increased pain . Medications and IVs Inpatient Medications Acetaminophen (Tylenol) 650 mg Q4H PRN PO TEMP > 100.4; Start 02/14/17 at 20:30 ; Stop 02/14/17 at 21:46; Status DC Albuterol/ Ipratropium (Duoneb Neb) 1 ampule Q6HR NEB NEB Last administered on 02/23/17 21:49; Start 02/21/17 at 16:00 Albuterol/ Ipratropium 1 ampule 1 ampule Q4HR WHILE AWAKE NEB NEB Last administered on 02/18/17 08:35; Start 02/15/17 at 08:00; Stop 02/19/17 at 08:00; Status DC Amlodipine Besylate (Norvasc) 5 mg BID PO Last administered on 02/23/17 20:09 ; Start 02/21/17 at 09:00 Carbamazepine (TEGretol) 200 mg Q12HR PO Last administered on 02/23/17 20:08; Start 02/22/17 at 09:00 Ciprofloxacin (Cipro) 750 mg Q12HR PO Last administered on 02/23/17 20:09; Start 02/20/17 at 13:00 Clindamycin Phosphate/Sodium Chloride (Cleocin Inj/NS Inj) 104 ml @ 208 mls/hr Q8H IV Last administered on 02/24/17 04:56; Start 02/20/17 at 14:00 Dextrose (D50w (Vial) Inj) 50 ml UNSCH PRN IV HYPOGLYCEMIA-SEE COMMENTS; Start 02/15/17 at 10:15 Dextrose/Sodium Chloride (D5W-1/2 NS 1000 ml Inj) 1,000 ml @ 84 mls/hr [id number] IV Last administered on 02/23/17 23:57; Start 02/23/17 at 12:00 Docusate Sodium (Colace) 100 mg BID PRN PO CONSTIPATION Last administered on 16:38; Start 02/14/17 at 20:30 Famotidine 20 mg 20 mg BID PO Last administered on 02/23/17 20:08; Start at 21:00 Finasteride (Proscar) 5 mg DAILY PO Last administered on 02/23/17 09:00; Start 02/15/17 at 09:00 Gabapentin (Neurontin) 600 mg TID PO Last administered on 02/23/17 09:00; Start 02/22/17 at 09:00 Glucagon (Glucagon Inj) 1 mg UNSCH PRN OTHER HYPOGLYCEMIA-SEE COMMENTS; Start 02/15/17 at 10:15 Heparin Sodium (Porcine) (Heparin Inj) 5,000 units Q12H SQ Last administered on 02/23/17 22:14; Start 02/14/17 at 22:00 Hydromorphone HCl (Dilaudid Pf Inj) 0.5 mg Q4H PRN IV PUSH PAIN SCALE 5 TO 10; Start 02/24/17 at 08:45; Status UNV Insulin Aspart (NovoLOG SUPPLEMENTAL SCALE) 1 ACHS SLIDING SCALE SQ Last administered on 02/22/17 10:34; Start 02/15/17 at 11:00 Lisinopril (Prinivil) 10 mg BID PO Last administered on 02/23/17 20:08; Start 02/18/17 at 21:00 Metformin HCl (Glucophage) 500 mg BIDPC PO ; Start 02/15/17 at 09:00; Status Hold Metoclopramide HCl (Reglan Inj) 5 mg Q8H IV PUSH Last administered on 04:57; Start 02/23/17 at 12:00 Miscellaneous Information ALL NURSING DEPARTME... UNSCH PRN .XX SEE LABEL COMMENTS; Start 02/19/17 at 11:35; Stop 02/20/17 at 11:34; Status DC Morphine Sulfate (Morphine Inj) 2 mg NOW ONCE IV Last administered on 11:25; Start 02/23/17 at 11:00; Stop 02/24/17 at 08:45; Status DC Morphine Sulfate 2 mg 2 mg Q3H PRN IV PUSH PAIN SCALE 7 TO 10 Last administered on 02/23/17 20:09; Start 02/23/17 at 11:00 Multi-Ingredient Mouthwash/Gargle 5 ml 5 ml QID SWISH-SWAL Last administered on 02/23/17 20:28; Start 02/18/17 at 09:00 Naloxone HCl (Narcan Inj) 0.4 mg UNSCH PRN IV SEE LABEL COMMENTS; Start at 20:30 Ondansetron HCl (Zofran Odt) 8 mg Q4H PRN PO NAUSEA; Start 02/23/17 at 12:00 Ondansetron HCl (Zofran Inj) 4 mg Q6H PRN IV NAUSEA Last administered on 08:55; Start 02/14/17 at 20:30; Stop 02/23/17 at 11:13; Status DC Oxycodone/ Acetaminophen (Percocet 5-325 Mg) 2 tab Q4H PRN PO PAIN SCALE 4 TO 10 Last administered on 02/23/17 09:01; Start 02/21/17 at 18:15 Pharmacy Profile Note (Vancomycin Consult Pharmacy) 0 ml @ 0 mls/hr UNSCH OTHER ; Start 02/15/17 at 07:00; Stop 02/18/17 at 15:31; Status DC Phenytoin Sodium (Dilantin Inj) 100 mg Q6H IV Last administered on 02/24/17 04 :57; Start 02/23/17 at 17:00 Piperacillin Sod/ Tazobactam Sod (Zosyn 3.375 Gm Premix) 50 ml @ 100 mls/hr Q6H IV Last administered on 02/20/17 08:20; Start 02/15/17 at 15:00; Stop at 12:29; Status DC Piperacillin Sod/ Tazobactam Sod (Zosyn 4.5 Gm Premix) 100 ml @ 200 mls/hr ONCE ONCE IV Last administered on 02/14/17 14:48; Start 02/14/17 at 14:30; Stop 02/14/17 at 14:59; Status DC Pneumococcal Polyvalent Vaccine (Pneumovax-23 Inj) 25 mcg ONCE ONCE IM Last administered on 02/16/17 09:31; Start 02/16/17 at 09:00; Stop 02/16/17 at 09:01; Status DC Potassium Chloride (KCl) 20 meq ONCE ONCE PO Last administered on 02/22/17 20 :38; Start 02/22/17 at 19:15; Stop 02/22/17 at 19:16; Status DC Pravastatin Sodium (Pravachol) 20 mg DAILY PO CM Last administered on 02/23/17 09:00; Start 02/15/17 at 09:00 Pregabalin 75 mg 75 mg Q8HR PO Last administered on 02/21/17 06:18; Start 02/19 at 22:00; Stop 02/21/17 at 17:12; Status DC Sodium Chloride (NS Flush) 2 ml BID IV FLUSH Last administered on 02/23/17 09: 01; Start 02/14/17 at 21:00 Sodium Chloride 2 ml 2 ml UNSCH PRN IVF FLUSH AFTER USING IV ACCESS; Start 02/14 at 13:15; Stop 02/14/17 at 21:43; Status DC Vancomycin HCl 1000 mg/Sodium Chloride 250 ml @ 250 mls/hr ONCE ONCE IV Last administered on 02/14/17 15:58; Start 02/14/17 at 14:30; Stop 02/14/17 at 15:29; Status DC Vancomycin HCl/ Sodium Chloride (Vancomycin Inj/ NS 250 ml Inj) 262.5 ml @ 250 mls/hr Q12H IV Last administered on 02/18/17 04:55; Start 02/18/17 at 05:00; Stop 02/18/17 at 15:31; Status DC Assessment and Plan Problem List: (1) Cavitary lesion of lung Status: Acute Plan: pulmonary consult NSCLC defer to onc (2) Sepsis Status: Acute Plan: on iv abx Assessment and Plan pneumoniae continue iv abx pipracillin and vancomycin Discussed Condition With patient and nursing will change morphine to dilaudid and follow [place] [id number] but this is par will reconsult heme onc re cytology report may need bioppsy frr full ID and RX recomendations Problem Qualifiers (1) Sepsis: Qualified Code: A41.9 - Sepsis, due to unspecified organism Malcolm Norton DO Feb 24, 2017 08:53
[2017-02-24 09:04] LABS: MEAN CELL VOLUME 82.5 FL (80.0-100.0); MEAN CORPUSCULAR HEMOGLOBIN 26.4 PG (27.0-34.0); PLATELET COUNT 388 TH/MM3 (150-450); RED BLOOD COUNT 4.61 MIL/MM3 (4.50-5.90); RED CELL DISTRIBUTION WIDTH 14.6 % (11.6-17.2); WHITE BLOOD COUNT 51.5 TH/MM3 (4.0-11.0)
[2017-02-24 09:09] LABS: REVIEW FLAG FINAL
[2017-02-24] MEDS: PRAVASTATIN SOD 20 MG TAB PO SCH (09:15)
[2017-02-24] MEDS: GABAPENTIN 300 MG CAP PO SCH ×3 (09:15→17:20)
[2017-02-24] MEDS: amLODIPine BESYLATE 5 MG TAB PO SCH ×2 (09:15→22:12)
[2017-02-24] MEDS: carBAMazepine 200 MG TAB PO SCH ×2 (09:15→22:12)
[2017-02-24] MEDS: POTASSIUM CHLORIDE 20 MEQ CONTROLLED RELEASE TAB PO SCH ×2 (09:15→22:12)
[2017-02-24] MEDS: CIPROFLOXACIN 750 MG TAB PO SCH ×2 (09:15→22:12)
[2017-02-24] MEDS: NYSTAT/DIPHENHY/LIDO MOUTHWASH (Adult) 120ML SWISH-SWAL SCH ×4 (09:16→22:13)
[2017-02-24] MEDS: LISINOPRIL 10 MG TAB PO SCH ×2 (09:16→22:12)
[2017-02-24] MEDS: FINASTERIDE 5 MG TAB PO SCH (09:16)
[2017-02-24] MEDS: SODIUM CHLORIDE 0.9% FLUSH 10 ML FLUSH IV FLUSH SCH ×2 (09:16→22:13)
[2017-02-24] MEDS: FAMOTIDINE 20 MG TAB PO SCH ×2 (09:16→22:11)
[2017-02-24 09:27] LABS: BICARBONATE 26.3 MEQ/L (21.0-32.0); POTASSIUM 3.4 MEQ/L (3.5-5.1)
[2017-02-24 10:11] LABS: BLOOD, URINE NEG (NEG); GLUCOSE,URINE NEG (NEG); GRANULAR CAST, URINE 2 /lpf; KETONE, URINE 80 mg/dL (NEG); MUCUS URINE FEW /lpf (OCC); NITRITE,URINE NEG (NEG); URINE COLOR YELLOW (YELLW/STRAW)
[2017-02-24 10:12] LABS: COMMENT (UR) CULT NOT INDICATED; CULTURE IF INDICATED CULT NOT INDICATED
[2017-02-24] MEDS: HEPARIN SODIUM - SQ 10,000 UNITS/ML VIAL SQ SCH ×2 (11:36→22:11)
--- NOTE | 2017-02-24 12:13 | HHI.PR ---
Review/Management Daily Summary 02/23 neuro coverage he feels miserable nausea and unable to raise tegretol will try iv dilantin for neuralgia, keep tegretol and gabapentin 02/24 looks and feels better today no nausea points to left v1-v3 distribution pain going into his throat continue combo for neuralgia: gabapentin, dph and tegretol Subjective Subjective Comments feeling better today Active Medications Current Medications Medications (Trade) Dose Ordered Sig/Joceline Route Start Time Stop Time Status Last Admin (Tylenol) 650 mg Q4H PRN PO 02/14/17 20:30 (Colace) 100 mg BID PRN PO 02/14/17 20:30 02/16/17 16:38 (NS Flush) 2 ml UNSCH PRN IV FLUSH 02/14/17 20:30 (NS Flush) 2 ml BID IV FLUSH 02/14/17 21:00 02/24/17 09:16 (Heparin Inj) 5,000 units Q12H SQ 02/14/17 22:00 02/24/17 11:36 (Narcan Inj) 0.4 mg UNSCH PRN IV 02/14/17 20:30 (Proscar) 5 mg DAILY PO 02/15/17 09:00 02/24/17 09:16 (Glucophage) 500 mg BIDPC PO 02/15/17 09:00 Hold (Pravachol) 20 mg DAILY PO 02/15/17 09:00 02/24/17 09:15 (D50w (Vial) Inj) 50 ml UNSCH PRN IV 02/15/17 10:15 (Glucagon Inj) 1 mg UNSCH PRN OTHER 02/15/17 10:15 (Pepcid) 20 mg BID PO 02/15/17 21:00 02/24/17 09:16 (Magic Mouthwash Adult Liq) 5 ml QID SWISH-SWAL 02/18/17 09:00 02/24/17 09:16 Lisinopril 10 mg 10 mg BID PO 02/18/17 21:00 02/24/17 09:16 (Cleocin Inj/NS Inj) 104 ml @ 208 mls/hr Q8H IV 02/20/17 14:00 02/24/17 04:56 (Cipro) 750 mg Q12HR PO 02/20/17 13:00 02/24/17 09:15 (Norvasc) 5 mg BID PO 02/21/17 09:00 02/24/17 09:15 (Neurontin) 300 mg TID PRN PO 02/21/17 08:00 02/21/17 14:03 (Percocet 5-325 Mg) 2 tab Q4H PRN PO 02/21/17 18:15 02/23/17 09:01 (Neurontin) 600 mg TID PO 02/22/17 09:00 02/24/17 09:15 (TEGretol) 200 mg Q12HR PO 02/22/17 09:00 02/24/17 09:15 (KCl) 20 meq Q12HR PO 02/22/17 21:00 02/24/17 09:15 (Dilantin Inj) 100 mg Q6H IV 02/23/17 17:00 02/24/17 11:37 (Zofran Odt) 8 mg Q4H PRN PO 02/23/17 12:00 02/24/17 09:28 Metoclopramide HCl 5 mg 5 mg Q8H IV PUSH 02/23/17 12:00 02/24/17 11:37 (D5W-1/2 NS 1000 ml Inj) 1,000 ml @ 84 mls/hr [id number] IV 02/23/17 12:00 02/23/17 23:57 (Dilaudid Pf Inj) 0.5 mg Q4H PRN IV PUSH 02/24/17 08:45 Allergies Allergies Coded Allergies No Known Allergies (Unverified02/14/17) Exam I&O / VS 02/23/17 02/23/17 02/24/17 14:59 22:59 06:59 Intake Total 240 ml 903 ml 450 ml Output Total 300 ml 650 ml 500 ml Balance -60 ml 253 ml -50 ml Intake Oral 240 ml 650 ml 450 ml IV Total 253 ml Output Urine Total 300 ml 650 ml 500 ml # Voids 3 # Bowel Movements 0 0 0 Vital Signs Date Time Temp Pulse Resp B/P Pulse Ox O2 Delivery O2 Flow Rate FiO2 02/24/17 11:46 98.5 100 18 165/74 96 02/24/17 10:35 98.1 115 17 149/70 91 02/24/17 09:35 96 Nasal Cannula 2.00 02/24/17 08:00 98.7 113 17 168/79 92 02/24/17 05:10 98.8 110 19 178/69 94 02/24/17 03:24 95 Nasal Cannula 2.00 02/24/17 00:30 97.9 90 19 130/84 94 02/23/17 21:50 92 Nasal Cannula 2.00 02/23/17 20:40 97.9 110 21 157/66 92 02/23/17 20:30 113 02/23/17 20:30 96 Nasal Cannula 2.00 02/23/17 16:00 98.7 111 16 166/75 93 Objective Micro and Labs Laboratory Tests Test 02/24/17 02/24/17 07:11 09:15 White Blood Count 51.5 Red Blood Count 4.61 Hemoglobin 12.2 Hematocrit 38.0 Mean Corpuscular Volume 82.5 Mean Corpuscular Hemoglobin 26.4 Mean Corpuscular Hemoglobin 32.0 Concent Red Cell Distribution Width 14.6 Platelet Count 388 Mean Platelet Volume 7.8 Sodium Level 134 Potassium Level 3.4 Chloride Level 96 Carbon Dioxide Level 26.3 Anion Gap 12 Blood Urea Nitrogen 6 Creatinine 0.55 Estimat Glomerular Filtration 145 Rate Random Glucose 108 Calcium Level 9.2 Urine Color YELLOW Urine Turbidity CLEAR Urine pH 6.0 Urine Specific [place] 1.018 Urine Protein 30 Urine Glucose (UA) NEG Urine Ketones 80 Urine Occult Blood NEG Urine Nitrite NEG Urine Bilirubin NEG Urine Urobilinogen LESS THAN 2.0 Urine Leukocyte Esterase NEG Urine WBC 1 Urine Granular Casts 2 Urine Mucus FEW Microscopic Urinalysis Comment CULT NOT INDICATED Herson Wu MD Feb 24, 2017 12:13
--- NOTE | 2017-02-24 12:52 | PD.ONC.PN ---
Subjective Subjective Remarks Difficult to arouse. Lethargic, speech is different per nurse. Pt non verbal, mumbling after opens eyes. Objective Data Date Time Temp Pulse Resp B/P Pulse Ox O2 Delivery O2 Flow Rate FiO2 02/24/17 11:46 98.5 100 18 165/74 96 02/24/17 10:35 98.1 115 17 149/70 91 02/24/17 09:35 96 Nasal Cannula 2.00 02/24/17 08:00 98.7 113 17 168/79 92 02/24/17 05:10 98.8 110 19 178/69 94 02/24/17 03:24 95 Nasal Cannula 2.00 02/24/17 00:30 97.9 90 19 130/84 94 02/23/17 21:50 92 Nasal Cannula 2.00 02/23/17 20:40 97.9 110 21 157/66 92 02/23/17 20:30 113 02/23/17 20:30 96 Nasal Cannula 2.00 02/23/17 16:00 98.7 111 16 166/75 93 02/24/17 02/24/17 02/24/17 06:59 14:59 22:59 Intake Total 450 ml Output Total 500 ml Balance -50 ml Result Diagram: 02/24/1711 02/24/17 0711 Laboratory Results Laboratory Tests Test 02/24/17 02/24/17 07:11 09:15 White Blood Count 51.5 TH/MM3 Red Blood Count 4.61 MIL/MM3 Hemoglobin 12.2 GM/DL Hematocrit 38.0 % Mean Corpuscular Volume 82.5 FL Mean Corpuscular Hemoglobin 26.4 PG Mean Corpuscular Hemoglobin 32.0 % Concent Red Cell Distribution Width 14.6 % Platelet Count 388 TH/MM3 Mean Platelet Volume 7.8 FL Sodium Level 134 MEQ/L Potassium Level 3.4 MEQ/L Chloride Level 96 MEQ/L Carbon Dioxide Level 26.3 MEQ/L Anion Gap 12 MEQ/L Blood Urea Nitrogen 6 MG/DL Creatinine 0.55 MG/DL Estimat Glomerular Filtration 145 ML/MIN Rate Random Glucose 108 MG/DL Calcium Level 9.2 MG/DL Urine Color YELLOW Urine Turbidity CLEAR Urine pH 6.0 Urine Specific Carman 1.018 Urine Protein 30 mg/dL Urine Glucose (UA) NEG mg/dL Urine Ketones 80 mg/dL Urine Occult Blood NEG Urine Nitrite NEG Urine Bilirubin NEG Urine Urobilinogen LESS THAN 2.0 MG/DL Urine Leukocyte Esterase NEG Urine WBC 1 /hpf Urine Granular Casts 2 /lpf Urine Mucus FEW /lpf Microscopic Urinalysis Comment CULT NOT INDICATED Imaging Studies Last [address] 02/24/17 0000 Signed Impressions: Service Date/Time: Friday, February 24, 2017 06:06 - CONCLUSION: No acute intracranial abnormality. Alban Chatman MD Administered Medications Medications (Trade) Dose Ordered Sig/Joceline Route PRN Reason Start Time Stop Time Status Last Admin Dose Admin Docusate Sodium (Colace) 100 mg BID PRN PO CONSTIPATION 02/14/17 20:30 02/16/17 16:38 Sodium Chloride (NS Flush) 2 ml BID IV FLUSH 02/14/17 21:00 02/24/17 09:16 Heparin Sodium (Porcine) (Heparin Inj) 5,000 units Q12H SQ 02/14/17 22:00 02/24/17 11:36 Finasteride (Proscar) 5 mg DAILY PO 02/15/17 09:00 02/24/17 09:16 Pravastatin Sodium (Pravachol) 20 mg DAILY PO CM 02/15/17 09:00 02/24/17 09:15 Famotidine (Pepcid) 20 mg BID PO 02/15/17 21:00 02/24/17 09:16 Multi-Ingredient Mouthwash/Gargle (Magic Mouthwash Adult Liq) 5 ml QID SWISH-SWAL 02/18/17 09:00 02/24/17 09:16 Lisinopril 10 mg 10 mg BID PO 02/18/17 21:00 02/24/17 09:16 Clindamycin Phosphate/Sodium Chloride (Cleocin Inj/NS Inj) 104 ml @ 208 mls/hr Q8H IV 02/20/17 14:00 02/24/17 04:56 Ciprofloxacin (Cipro) 750 mg Q12HR PO 02/20/17 13:00 02/24/17 09:15 Amlodipine Besylate (Norvasc) 5 mg BID PO 02/21/17 09:00 02/24/17 09:15 Gabapentin (Neurontin) 300 mg TID PRN PO PAIN 1 TO 10 AND/OR AGITATION 02/21/17 08:00 02/21/17 14:03 Oxycodone/ Acetaminophen (Percocet 5-325 Mg) 2 tab Q4H PRN PO PAIN SCALE 4 TO 10 02/21/17 18:15 02/23/17 09:01 Gabapentin (Neurontin) 600 mg TID PO 02/22/17 09:00 02/24/17 09:15 Carbamazepine (TEGretol) 200 mg Q12HR PO 02/22/17 09:00 02/24/17 09:15 Potassium Chloride (KCl) 20 meq Q12HR PO 02/22/17 21:00 02/24/17 09:15 Phenytoin Sodium (Dilantin Inj) 100 mg Q6H IV 02/23/17 17:00 02/24/17 11:37 Ondansetron HCl (Zofran Odt) 8 mg Q4H PRN PO NAUSEA 02/23/17 12:00 02/24/17 09:28 Metoclopramide HCl 5 mg 5 mg Q8H IV PUSH 02/23/17 12:00 02/24/17 11:37 Dextrose/Sodium Chloride (D5W-1/2 NS 1000 ml Inj) 1,000 ml @ 84 mls/hr [id number] IV 02/23/17 12:00 02/23/17 23:57 Objective Remarks GENERAL: Elderly cachectic man, well-developed patient. SKIN: Warm and dry. HEAD: Normocephalic. EYES: No scleral icterus. No injection or drainage. NECK: Supple, trachea midline. No JVD or lymphadenopathy. LYMPHATIC: No adenopathy. CARDIOVASCULAR: Regular rate and rhythm without murmurs. RESPIRATORY: Breath sounds equal bilaterally. No accessory muscle use. GASTROINTESTINAL: Abdomen soft, non-tender, nondistended. EXTREMITIES: No cyanosis, or edema. MUSCULOSKELETAL: Adequate muscle tone. NEUROLOGICAL: No obvious focal deficit. Awake, alert, and oriented x3. PSYCHIATRIC: Appropriate mood and affect; insight and judgment normal. Assessment/Plan Problem List: (1) Cavitary lesion of lung Status: Acute Plan: Noted cytology is positive. Reviewed Dr. Flores's recommendation, pt's performance status is so poor it is unlikely that he would be a candidate for chemotherapy. Consider consult rad onc for palliative therapy, he is even very debilitated for that. Diagnosis for malignancy is confirmed. Defer lung biopsy for now as it is unlikely to bladder changer. Dr. Flores to follow up on Saturday. Plan to consult Rad Onc. Assessment 77y/o male with leukocytosis, cachexia, cavitary right lung lesion, and mouth lesion. Plan 1. Cytology positive for dx. NSCLCA 2. Increase somnolence after fall, possible hit head. Fall occurred after CT head yesterday. If mental status change consider repeat scan. 3. continue pain management for left sided facial pain. 4. Consult Rad Onc to see if a candidate for palliative therapy. Divya Cha MD Feb 24, 2017 12:52
--- NOTE | 2017-02-24 13:52 | HHI.PR ---
Subjective Remarks 76 YOWM with RLL cavitary lesion, DM,HTN feels better No fever no chills Had Bronch, bx RLL Has mucosal thickening and erythema RLL bronchus Bronchial bx negative Cytology Features consistant with NSCLC Has headache, nausea CT head no acute changes Objective Vital Signs Vital Signs Date Time Temp Pulse Resp B/P Pulse Ox O2 Delivery O2 Flow Rate FiO2 02/24/17 11:46 98.5 100 18 165/74 96 02/24/17 10:35 98.1 115 17 149/70 91 02/24/17 09:35 96 Nasal Cannula 2.00 02/24/17 08:00 98.7 113 17 168/79 92 02/24/17 05:10 98.8 110 19 178/69 94 02/24/17 03:24 95 Nasal Cannula 2.00 02/24/17 00:30 97.9 90 19 130/84 94 02/23/17 21:50 92 Nasal Cannula 2.00 02/23/17 20:40 97.9 110 21 157/66 92 02/23/17 20:30 113 02/23/17 20:30 96 Nasal Cannula 2.00 02/23/17 16:00 98.7 111 16 166/75 93 I/O 02/23/17 02/23/17 02/23/17 02/24/17 02/24/17 02/24/17 07:00 15:00 23:00 07:00 15:00 23:00 Intake Total 240 ml 903 ml 450 ml Output Total 300 ml 650 ml 500 ml Balance -60 ml 253 ml -50 ml Intake Oral 240 ml 650 ml 450 ml IV Total 253 ml Output Urine Total 300 ml 650 ml 500 ml # Voids 3 # Bowel Movements 0 0 0 1 Result Diagram: 02/24/17 0711 02/24/17 0711 Objective Remarks GENERAL: MBMN WM,NAD SKIN: Warm and dry. HEAD: Normocephalic. EYES: No scleral icterus. No injection or drainage. NECK: Supple, trachea midline. No JVD or lymphadenopathy. CARDIOVASCULAR: Regular rate and rhythm without murmurs, gallops, or rubs. RESPIRATORY: Breath sounds equal bilaterally. No accessory muscle use. GASTROINTESTINAL: Abdomen soft, non-tender, nondistended. MUSCULOSKELETAL: No cyanosis, or edema. BACK: Nontender without obvious deformity. No CVA tenderness. A/P Assessment and Plan RLL Cavitary lesion, --NSCLC on cytology COPD DM HTN PLAN: Abx per ID Sputum PCR ENT evaluated pt for growth on the tongue Oncology following Henri Harrison MD Feb 24, 2017 13:52
--- NOTE | 2017-02-24 16:41 | RADRPT ---
EXAM DATE/TIME: 02/24/2017 16:12 [facility] COMPARISON: CT BRAIN W/O CONTRAST, February 24, 2017, 6:06. INDICATIONS : Fall, struck left side of head. Increased somnolence. RADIATION DOSE: 56.35 CTDIvol (mGy) MEDICAL HISTORY : Cardiovascular disease. Hypertension. Diabetes mellitus type 2. SURGICAL HISTORY : None. ENCOUNTER: Initial ACUITY: 2 days PAIN SCALE: 5/10 LOCATION: Left parietal TECHNIQUE: Multiple contiguous axial images were obtained of the head. Using automated exposure control and adj ustment of the mA and/or kV according to patient size, radiation dose was kept as low as reasonably a chievable to obtain optimal diagnostic quality images. DICOM format image data is available electro nically for review and comparison. FINDINGS: CEREBRUM: The brain remains stable in appearance without evidence of hemorrhage, edema or contusion. Cavum sept um pellucidum is again noted. POSTERIOR FOSSA: The cerebellum and brainstem are intact. The 4th ventricle is midline. The cerebellopontine angle i s unremarkable. EXTRACRANIAL: The visualized portion of the orbits is intact. SKULL: The calvaria is intact. No evidence of skull fracture. CONCLUSION: Stable exam without evidence of acute process. No evidence of acute infarct, hemorrhage, mass or edema. Dane Hicks MD on February 24, 2017 at 16:37 Board Certified Radiologist. This report was verified electronically.
[2017-02-24] MEDS: DEXT 5%-NACL 0.45% 1000 ML INJ 1,000 ML IV SCH (23:45)
[2017-02-25] VITALS (7 sets, daily range): BP systolic 126–145; BP diastolic 57–80; PULSE 100–123; RESP 15–20; TEMP 97.7–99.2; O2SAT 93–94
[2017-02-25] MEDS: RESP: ALBUTEROL 2.5 MG/IPRATROPIUM 0.5 MG NEB (SCH) NEB ×3 (03:33→15:43)
[2017-02-25] MEDS: METOCLOPRAMIDE HCL 10 MG/2 ML VIAL IV PUSH SCH ×3 (05:24→21:16)
[2017-02-25] MEDS: PHENYTOIN INJ 100 MG/2 ML VIAL IV SCH (05:25)
[2017-02-25] MEDS: CLINDAMYCIN INJ 600 MG in SODIUM CHLORIDE 0.9% INJ 100 ML IV SCH (05:26)
[2017-02-25] MEDS: INSULIN ASPART SUPPLEMENTAL SCALE SQ SCH ×4 (06:47→21:33)
--- NOTE | 2017-02-25 07:58 | HHI.PR ---
Subjective Remarks still pain with swallow Objective Vital Signs Date Time Temp Pulse Resp B/P Pulse Ox O2 Delivery O2 Flow Rate FiO2 02/25/17 04:40 98.8 100 19 145/80 94 02/24/17 23:45 97.9 110 20 150/80 94 02/24/17 23:15 92 Nasal Cannula 3.00 02/24/17 23:00 109 02/24/17 21:28 Nasal Cannula 2.00 02/24/17 20:40 97.7 118 20 159/81 93 02/24/17 16:00 98.2 107 17 158/71 95 02/24/17 11:46 98.5 100 18 165/74 96 02/24/17 10:35 98.1 115 17 149/70 91 02/24/17 09:35 96 Nasal Cannula 2.00 02/24/17 08:00 98.7 113 17 168/79 92 I/O 02/24/17 02/24/17 02/24/17 02/25/17 02/25/17 02/25/17 06:59 14:59 22:59 06:59 14:59 22:59 Intake Total 450 ml 480 ml 400 ml 450 ml 956 ml Output Total 500 ml 300 ml 400 ml 300 ml Balance -50 ml 180 ml 0 ml 150 ml 956 ml Intake Oral 450 ml 480 ml 400 ml 450 ml IV Total 956 ml Output Urine Total 500 ml 300 ml 400 ml 300 ml # Voids 1 # Bowel Movements 0 2 1 1 Result Diagram: 02/24/17 0711 02/24/17 0711 Procedures Bronchoscopy 8th Objective Remarks awake alert pain with swallow knows place Assessment and Plan Assessment and Plan imp this am appears pain only with swallow he cannot give me straight answer on that try tegretol and inc gabapentin 600 tid watch and make sure not too sleepy on it may be in some part a glossopharyngeal neuralgia i dw rads yest no mass base of skull or sphenoid process seen can we just bx tongue? 02/25/17 pain seems a bit better will check cbz level dc dil and may inc neurontin nsclca oob PT Pavan Rooney MD Feb 25, 2017 07:58
[2017-02-25] MEDS: PRAVASTATIN SOD 20 MG TAB PO SCH (08:45)
[2017-02-25] MEDS: NYSTAT/DIPHENHY/LIDO MOUTHWASH (Adult) 120ML SWISH-SWAL SCH ×4 (08:45→21:17)
[2017-02-25] MEDS: carBAMazepine 200 MG TAB PO SCH ×2 (08:45→21:16)
[2017-02-25] MEDS: CIPROFLOXACIN 750 MG TAB PO SCH ×2 (08:45→21:16)
[2017-02-25] MEDS: FAMOTIDINE 20 MG TAB PO SCH ×2 (08:45→21:17)
[2017-02-25] MEDS: POTASSIUM CHLORIDE 20 MEQ CONTROLLED RELEASE TAB PO SCH ×2 (08:45→21:16)
[2017-02-25] MEDS: amLODIPine BESYLATE 5 MG TAB PO SCH ×2 (08:45→21:17)
[2017-02-25] MEDS: SODIUM CHLORIDE 0.9% FLUSH 10 ML FLUSH IV FLUSH SCH ×2 (08:46→21:16)
[2017-02-25] MEDS: GABAPENTIN 300 MG CAP PO SCH ×3 (08:46→17:07)
[2017-02-25] MEDS: FINASTERIDE 5 MG TAB PO SCH (08:46)
[2017-02-25] MEDS: LISINOPRIL 10 MG TAB PO SCH ×2 (08:56→21:17)
[2017-02-25] MEDS: HEPARIN SODIUM - SQ 10,000 UNITS/ML VIAL SQ SCH ×2 (11:36→21:16)
[2017-02-25] MEDS: DEXT 5%-NACL 0.45% 1000 ML INJ 1,000 ML IV SCH ×2 (11:40→22:45)
[2017-02-25 12:07] LABS: AUTOMATED NEUTROPHIL # 51.2 TH/MM3 (1.8-7.7); BASOPHIL # 0.7 TH/MM3 (0-0.2); BASOPHIL % 1.1 % (0.0-2.0); EOSINOPHIL # 4.2 TH/MM3 (0-0.4); EOSINOPHIL % 6.8 % (0.0-4.0); HEMATOCRIT 35.8 % (39.0-51.0); LYMPHOCYTE # 2.5 TH/MM3 (1.0-4.8); MEAN CELL VOLUME 81.4 FL (80.0-100.0); MEAN CORPUSCULAR HEMOGLOBIN 26.7 PG (27.0-34.0); MEAN CORPUSCULAR HGB CONC 32.8 % (32.0-36.0); MONO % 5.6 % (0.0-8.0); NEUT % 82.5 % (16.0-70.0); PLATELET COUNT 372 TH/MM3 (150-450); RED CELL DISTRIBUTION WIDTH 14.7 % (11.6-17.2); WHITE BLOOD COUNT 62.2 TH/MM3 (4.0-11.0)
[2017-02-25 12:23] LABS: HEMO FLAGS AUTO DIFF
[2017-02-25 12:32] LABS: BICARBONATE 24.9 MEQ/L (21.0-32.0); POTASSIUM 4.2 MEQ/L (3.5-5.1)
[2017-02-25 14:48] LABS: BANDS 18 % (0-6); EOSINOPHILS 11 % (0-4); NEUTROPHIL # MANUAL DIFF 48.5 TH/MM3 (1.8-7.7); PLATELET ESTIMATE SMEAR NORMAL (NORMAL); PLATELET MORPHOLOGY NORMAL (NORMAL); POLYS (SEG NEUTROPHILS) 60 % (16-70); SCAN/DIFF FINAL DIFF MANUAL; TOXIC GRANULATION 1+ (NORMAL); TOXIC VACUOLATION PRESENT (NONE SEEN); WBC DIFF SAMPLE 100
--- NOTE | 2017-02-25 15:03 | HHI.IDPN ---
Subjective Subjective Remarks Patient is a 76-year-old male, presented to the hospital complaining of shakiness as well as pain on the left side of his head. Patient apparently has been treated for multiple infections including bilateral ear infection, pneumonia, and UTI. Patient has occasional coughing with minimal sputum production. On presentation he was afebrile. His WBCs 34,000. He had a chest x-ray with an abnormality in the right lung, and CT of the chest showed evidence of cavitary lesion in the right lung with adenopathy. Patient stated when he had some cough a couple months ago, he had a chest x-ray done and he was told that there is a finding on his right lung. He was given antibiotics for treatment of pneumonia. Patient denies any nausea or vomiting, or any syncopal episode. He denies any fever or chills or sweats. He is not had any significant weight loss. No urinary complaint, no GI complaints. Patient has not lived [place]. He has not had any exposure to anyone with known tuberculosis. Patient had recently been seen near specialist, and looked at his ears and he was told that they were all clear. Patient complains of pain on his left ear, and it involves the whole left side of his head all the way to the neck. And occasionally he would have some swallowing difficulty. Infectious disease consultation has been requested to evaluate the patient with cavitary lesion in the right lung. Notes reviewed [facility] ok Bronch biopsy not helpful cytology non-small cell CA C/O sore area on his tongue, and L side of neck/head WBC continues to rise TB quantiferon negative Bronch C/S normal anton Bronch AFB negative Brain MRI negative Antibiotics cipro Clindamycin Lines PIV Past Medical History Hypertension Hyperlipidemia Melanoma COPD Past Surgical History Removal of skin cancer Allergies: Coded Allergies: No Known Allergies (Unverified , 02/14/17) Objective . Vital Signs Date Time Temp Pulse Resp B/P Pulse Ox O2 Delivery O2 Flow Rate FiO2 02/25/17 12:00 98.9 113 15 133/76 94 02/25/17 09:10 94 21 02/25/17 09:00 97 Nasal Cannula 2.00 02/25/17 08:00 99.2 105 15 126/57 93 02/25/17 04:40 98.8 100 19 145/80 94 02/24/17 23:45 97.9 110 20 150/80 94 8/13/17 23:15 92 Nasal Cannula 3.00 02/24/17 23:00 109 02/24/17 21:28 Nasal Cannula 2.00 02/24/17 20:40 97.7 118 20 159/81 93 02/24/17 16:00 98.2 107 17 158/71 95 02/24/17 02/24/17 02/25/17 15:00 23:00 07:00 Intake Total 480 ml 400 ml 450 ml Output Total 300 ml 400 ml 300 ml Balance 180 ml 0 ml 150 ml Intake Oral 480 ml 400 ml 450 ml Output Urine Total 300 ml 400 ml 300 ml # Voids 1 # Bowel Movements 2 1 1 . Laboratory Tests Test 02/24/17 02/25/17 07:11 11:11 White Blood Count 51.5 TH/MM3 62.2 TH/MM3 Red Blood Count 4.61 MIL/MM3 4.40 MIL/MM3 Hemoglobin 12.2 GM/DL 11.7 GM/DL Hematocrit 38.0 % 35.8 % Mean Corpuscular Volume 82.5 FL 81.4 FL Mean Corpuscular Hemoglobin 26.4 PG 26.7 PG Mean Corpuscular Hemoglobin 32.0 % 32.8 % Concent Red Cell Distribution Width 14.6 % 14.7 % Platelet Count 388 TH/MM3 372 TH/MM3 Mean Platelet Volume 7.8 FL 8.2 FL Neutrophils (%) (Auto) 82.5 % Lymphocytes (%) (Auto) 4.0 % Monocytes (%) (Auto) 5.6 % Eosinophils (%) (Auto) 6.8 % Basophils (%) (Auto) 1.1 % Neutrophils # (Auto) 51.2 TH/MM3 Lymphocytes # (Auto) 2.5 TH/MM3 Monocytes # (Auto) 3.5 TH/MM3 Eosinophils # (Auto) 4.2 TH/MM3 Basophils # (Auto) 0.7 TH/MM3 CBC Comment AUTO DIFF Differential Total Cells 100 Counted Neutrophils % (Manual) 60 % Band Neutrophils % 18 % Lymphocytes % 5 % Monocytes % 6 % Eosinophils % 11 % Neutrophils # (Manual) 48.5 TH/MM3 Differential Comment FINAL DIFF MANUAL Toxic Granulation 1+ Toxic Vacuolation PRESENT Platelet Estimate NORMAL Platelet Morphology Comment NORMAL Laboratory Tests Test 02/24/17 02/25/17 07:11 11:11 Sodium Level 134 MEQ/L 134 MEQ/L Potassium Level 3.4 MEQ/L 4.2 MEQ/L Chloride Level 96 MEQ/L 97 MEQ/L Carbon Dioxide Level 26.3 MEQ/L 24.9 MEQ/L Anion Gap 12 MEQ/L 12 MEQ/L Blood Urea Nitrogen 6 MG/DL 6 MG/DL Creatinine 0.55 MG/DL 0.68 MG/DL Estimat Glomerular Filtration 145 ML/MIN 114 ML/MIN Rate Random Glucose 108 MG/DL 173 MG/DL Calcium Level 9.2 MG/DL 10.1 MG/DL Imaging Chest X-Ray 02/19/17 0000 Signed Impressions: Service Date/Time: Sunday, February 19, 2017 11:45 - CONCLUSION: Stable cavitary lesion in the right upper lung. No new or significant changes. Andres Rodgers MD Brain MRI 02/19/17 0000 Signed Impressions: Service Date/Time: Sunday, February 19, 2017 08:56 - CONCLUSION: Aging brain with generalized volume loss. No evidence of acute infarct, hemorrhage, mass or edema. Dane Hicks MD Neck CT 02/14/17 1305 Signed Impressions: Service Date/Time: February 15:34 - CONCLUSION: 1. No acute inflammatory changes or abnormal fluid collections identified within the neck. No adenopathy. Aleks Callahan MD Chest CT 02/14/17 0000 Signed Impressions: Service Date/Time: February 15:37 - CONCLUSION: 1. 7.4 cm cavitary mass in first segment right lower lobe with continuous right hilar adenopathy measuring up to 3 cm in diameter. Findings are most characteristic of a cavitary malignancy such as squamous cell carcinoma. There is some interstitial prominence in the right upper lobe and pleural thickening. This could be postinflammatory change but cannot exclude interstitial spread of tumor. Cavitary infection is also in the differential diagnosis. There is underlying moderate to severe emphysema. Aleks Callahan MD Physical Exam GENERAL: awake and alert, not in respiratory distress. SKIN: Warm and dry. No generalized rash, no ecchymoses and no evidence of embolic lesions. HEAD: Atraumatic. Normocephalic. No temporal wasting, or tenderness. EYES: [place] conjunctiva. No petechia or hemorrhage. Pupils equal, round and reactive to light. No scleral icterus. No injection or drainage. EARS, NOSE AND THROAT: Nose without bleeding or purulent nasal discharge. No sinus tenderness. Mucous membranes pink and moist. Edentulous. Has an indurated ulcer on tongue more on left side with NECK: Trachea midline. Supple and not tender, no meningeal signs. No lymphadenopathy, no swelling CARDIOVASCULAR: Regular rate and rhythm. No murmurs, rubs or gallops heard RESPIRATORY: Clear to auscultation. Breath sounds equal bilaterally. No rales , wheezing or rhonchi ABDOMEN: Soft, non-tender, nondistended. Bowel sounds present and normoactive. No guarding. No rebound. No organomegaly. EXTREMITIES: No clubbing, cyanosis, or edema.No joint effusion, has good ROM. No calf tenderness. Well perfused and warm. NEUROLOGICAL: Non-focal PSYCHIATRIC: Normal affect, calm and cooperative. LINE: No evidence of infection Assessment & Plan Remarks IMPRESSION Cavitary Lung CA RLL, with adenopathy Tongue lesion, per ENT suspicious for malignancy Persistent and worsening leukocytosis, etiology? likely due to malignancy COPD Pain L side of head/ear and neck - CT neck ok - ?radiation pain,, ?cervical, ?occipital RECOMMENDATION Change to po Augmentin Contniue Cipro Give Abx until Mar 01 - end dates orderes Nothing new to add from ID standpoint Loraine Orr MD Feb 25, 2017 15:02
[2017-02-25] MEDS: AMOXICIL-CLAVU 400 MG/5 ML LIQ 100 ML BTL PO SCH ×2 (15:59→21:17)
--- NOTE | 2017-02-25 17:03 | HHI.PR ---
Subjective Remarks no further halucinations noted Objective Vital Signs Date Time Temp Pulse Resp B/P Pulse Ox O2 Delivery O2 Flow Rate FiO2 02/25/17 12:00 98.9 113 15 133/76 94 02/25/17 09:10 94 21 02/25/17 09:00 97 Nasal Cannula 2.00 02/25/17 08:00 99.2 105 15 126/57 93 02/25/17 04:40 98.8 100 19 145/80 94 02/24/17 23:45 97.9 110 20 150/80 94 02/24/17 23:15 92 Nasal Cannula 3.00 02/24/17 23:00 109 02/24/17 21:28 Nasal Cannula 2.00 02/24/17 20:40 97.7 118 20 159/81 93 I/O 02/24/17 02/24/17 02/24/17 02/25/17 02/25/17 02/25/17 06:59 14:59 22:59 06:59 14:59 22:59 Intake Total 450 ml 480 ml 400 ml 450 ml 956 ml Output Total 500 ml 300 ml 400 ml 300 ml Balance -50 ml 180 ml 0 ml 150 ml 956 ml Intake Oral 450 ml 480 ml 400 ml 450 ml IV Total 956 ml Output Urine Total 500 ml 300 ml 400 ml 300 ml # Voids 1 # Bowel Movements 0 2 1 1 Result Diagram: 02/25/17 1111 02/25/17 1111 Procedures Bronchoscopy 8th Objective Remarks GENERAL:frail white male patient. SKIN: Warm and dry. HEAD: Normocephalic. EYES: No scleral icterus. No injection or drainage. NECK: Supple, trachea midline. No JVD or lymphadenopathy. CARDIOVASCULAR: Regular rate and rhythm without murmurs, gallops, or rubs. RESPIRATORY: Breath sounds rhonchi throughout GASTROINTESTINAL: Abdomen soft, non-tender, nondistended. nauseated EXTREMITIES: No cyanosis, or edema. NEUROLOGICAL: Awake, alert, and oriented x 3.intermittant confusion but alert now Non-focal.uncomfortable with increased pain . Medications and IVs Inpatient Medications Acetaminophen (Tylenol) 650 mg Q4H PRN PO TEMP > 100.4; Start 02/14/17 at 20:30 ; Stop 02/14/17 at 21:46; Status DC Albuterol/ Ipratropium (Duoneb Neb) 1 ampule Q6HR NEB NEB Last administered on 02/25/17 15:43; Start 02/21/17 at 16:00; Stop 02/25/17 at 16:00; Status DC Albuterol/ Ipratropium 1 ampule 1 ampule Q4HR WHILE AWAKE NEB NEB Last administered on 02/18/17 08:35; Start 02/15/17 at 08:00; Stop 02/19/17 at 08:00; Status DC Amlodipine Besylate (Norvasc) 5 mg BID PO Last administered on 02/25/17 08:45 ; Start 02/21/17 at 09:00 Amoxicillin/ Clavulanate Potassium (Augmentin 400 Mg/5 ml Liq) 400 mg Q8HR PO Last administered on 02/25/17 15:59; Start 02/25/17 at 15:00; Stop 03/01/17 at 12:00 Carbamazepine (TEGretol) 200 mg Q12HR PO Last administered on 02/25/17 08:45; Start 02/22/17 at 09:00 Ciprofloxacin (Cipro) 750 mg Q12HR PO Last administered on 02/25/17 08:45; Start 02/20/17 at 13:00; Stop 03/01/17 at 12:00 Clindamycin Phosphate/Sodium Chloride (Cleocin Inj/NS Inj) 104 ml @ 208 mls/hr Q8H IV Last administered on 02/25/17 05:26; Start 02/20/17 at 14:00; Stop 02/25 at 14:58; Status DC Dextrose (D50w (Vial) Inj) 50 ml UNSCH PRN IV HYPOGLYCEMIA-SEE COMMENTS; Start 02/15/17 at 10:15 Dextrose/Sodium Chloride (D5W-1/2 NS 1000 ml Inj) 1,000 ml @ 84 mls/hr [id number] IV Last administered on 02/24/17 23:45; Start 02/23/17 at 12:00 Docusate Sodium (Colace) 100 mg BID PRN PO CONSTIPATION Last administered on 16:38; Start 02/14/17 at 20:30 Famotidine 20 mg 20 mg BID PO Last administered on 02/25/17 08:45; Start at 21:00 Finasteride (Proscar) 5 mg DAILY PO Last administered on 02/25/17 08:46; Start 02/15/17 at 09:00 Gabapentin (Neurontin) 600 mg TID PO Last administered on 02/25/17 12:28; Start 02/22/17 at 09:00 Glucagon (Glucagon Inj) 1 mg UNSCH PRN OTHER HYPOGLYCEMIA-SEE COMMENTS; Start 02/15/17 at 10:15 Heparin Sodium (Porcine) (Heparin Inj) 5,000 units Q12H SQ Last administered on 02/25/17 11:36; Start 02/14/17 at 22:00 Hydromorphone HCl (Dilaudid Pf Inj) 0.5 mg Q4H PRN IV PUSH PAIN SCALE 5 TO 10; Start 02/24/17 at 08:45 Insulin Aspart (NovoLOG SUPPLEMENTAL SCALE) 1 ACHS SLIDING SCALE SQ Last administered on 02/25/17 06:47; Start 02/15/17 at 11:00 Lisinopril (Prinivil) 10 mg BID PO Last administered on 02/25/17 08:56; Start 02/18/17 at 21:00 Metformin HCl (Glucophage) 500 mg BIDPC PO ; Start 02/15/17 at 09:00; Status Hold Metoclopramide HCl (Reglan Inj) 5 mg Q8H IV PUSH Last administered on 12:29; Start 02/23/17 at 12:00 Miscellaneous Information ALL NURSING DEPARTME... UNSCH PRN .XX SEE LABEL COMMENTS; Start 02/19/17 at 11:35; Stop 02/20/17 at 11:34; Status DC Morphine Sulfate (Morphine Inj) 2 mg NOW ONCE IV Last administered on 11:25; Start 02/23/17 at 11:00; Stop 02/24/17 at 08:45; Status DC Morphine Sulfate 2 mg 2 mg Q3H PRN IV PUSH PAIN SCALE 7 TO 10 Last administered on 02/23/17 20:09; Start 02/23/17 at 11:00; Stop 02/24/17 at 09:01 ; Status DC Multi-Ingredient Mouthwash/Gargle 5 ml 5 ml QID SWISH-SWAL Last administered on 02/25/17 12:29; Start 02/18/17 at 09:00 Naloxone HCl (Narcan Inj) 0.4 mg UNSCH PRN IV SEE LABEL COMMENTS; Start at 20:30 Ondansetron HCl (Zofran Odt) 8 mg Q4H PRN PO NAUSEA Last administered on 09:28; Start 02/23/17 at 12:00 Ondansetron HCl (Zofran Inj) 4 mg Q6H PRN IV NAUSEA Last administered on 08:55; Start 02/14/17 at 20:30; Stop 02/23/17 at 11:13; Status DC Oxycodone/ Acetaminophen (Percocet 5-325 Mg) 2 tab Q4H PRN PO PAIN SCALE 4 TO 10 Last administered on 02/23/17 09:01; Start 02/21/17 at 18:15 Pharmacy Profile Note (Vancomycin Consult Pharmacy) 0 ml @ 0 mls/hr UNSCH OTHER ; Start 02/15/17 at 07:00; Stop 02/18/17 at 15:31; Status DC Phenytoin Sodium (Dilantin Inj) 100 mg Q6H IV Last administered on 02/25/17 05 :25; Start 02/23/17 at 17:00; Stop 02/25/17 at 07:57; Status DC Piperacillin Sod/ Tazobactam Sod (Zosyn 3.375 Gm Premix) 50 ml @ 100 mls/hr Q6H IV Last administered on 02/20/17 08:20; Start 02/15/17 at 15:00; Stop at 12:29; Status DC Piperacillin Sod/ Tazobactam Sod (Zosyn 4.5 Gm Premix) 100 ml @ 200 mls/hr ONCE ONCE IV Last administered on 02/14/17 14:48; Start 02/14/17 at 14:30; Stop 02/14/17 at 14:59; Status DC Pneumococcal Polyvalent Vaccine (Pneumovax-23 Inj) 25 mcg ONCE ONCE IM Last administered on 02/16/17 09:31; Start 02/16/17 at 09:00; Stop 02/16/17 at 09:01; Status DC Potassium Chloride (KCl) 20 meq ONCE ONCE PO Last administered on 02/22/17 20 :38; Start 02/22/17 at 19:15; Stop 02/22/17 at 19:16; Status DC Pravastatin Sodium (Pravachol) 20 mg DAILY PO CM Last administered on 02/25/17 08:45; Start 02/15/17 at 09:00 Pregabalin 75 mg 75 mg Q8HR PO Last administered on 02/21/17 06:18; Start 02/19 at 22:00; Stop 02/21/17 at 17:12; Status DC Sodium Chloride (NS Flush) 2 ml BID IV FLUSH Last administered on 02/25/17 08: 46; Start 02/14/17 at 21:00 Sodium Chloride 2 ml 2 ml UNSCH PRN IVF FLUSH AFTER USING IV ACCESS; Start 02/14 at 13:15; Stop 02/14/17 at 21:43; Status DC Vancomycin HCl 1000 mg/Sodium Chloride 250 ml @ 250 mls/hr ONCE ONCE IV Last administered on 02/14/17 15:58; Start 02/14/17 at 14:30; Stop 02/14/17 at 15:29; Status DC Vancomycin HCl/ Sodium Chloride (Vancomycin Inj/ NS 250 ml Inj) 262.5 ml @ 250 mls/hr Q12H IV Last administered on 02/18/17 04:55; Start 02/18/17 at 05:00; Stop 02/18/17 at 15:31; Status DC Assessment and Plan Problem List: (1) Cavitary lesion of lung Status: Acute Plan: pulmonary consult NSCLC defer to onc (2) Sepsis Status: Acute Plan: on iv abx Assessment and Plan pneumoniae continue iv abx pipracillin and vancomycin Discussed Condition With dr garrido appears to have NSCLC not a good candidate for treatment will consider palative radieation and or hospice Problem Qualifiers (1) Sepsis: Qualified Code: A41.9 - Sepsis, due to unspecified organism Malcolm Norton DO Feb 25, 2017 17:03
--- NOTE | 2017-02-25 17:16 | PD.ONC.PN ---
Subjective Subjective Remarks remains frail and no longer ambulatory unless assisted. Objective Data Date Time Temp Pulse Resp B/P Pulse Ox O2 Delivery O2 Flow Rate FiO2 02/25/17 12:00 98.9 113 15 133/76 94 02/25/17 09:10 94 21 02/25/17 09:00 97 Nasal Cannula 2.00 02/25/17 08:00 99.2 105 15 126/57 93 02/25/17 04:40 98.8 100 19 145/80 94 02/24/17 23:45 97.9 110 20 150/80 94 02/24/17 23:15 92 Nasal Cannula 3.00 02/24/17 23:00 109 02/24/17 21:28 Nasal Cannula 2.00 02/24/17 20:40 97.7 118 20 159/81 93 02/25/17 02/25/17 02/25/17 06:59 14:59 22:59 Intake Total 450 ml 956 ml Output Total 300 ml Balance 150 ml 956 ml Result Diagram: 02/25/17 1111 02/25/17 1111 Laboratory Results Laboratory Tests Test 02/25/17 02/25/17 02:35 11:11 Carbamazepine (Tegretol) Level 8.2 MCG/ML White Blood Count 62.2 TH/MM3 Red Blood Count 4.40 MIL/MM3 Hemoglobin 11.7 GM/DL Hematocrit 35.8 % Mean Corpuscular Volume 81.4 FL Mean Corpuscular Hemoglobin 26.7 PG Mean Corpuscular Hemoglobin 32.8 % Concent Red Cell Distribution Width 14.7 % Platelet Count 372 TH/MM3 Mean Platelet Volume 8.2 FL Neutrophils (%) (Auto) 82.5 % Lymphocytes (%) (Auto) 4.0 % Monocytes (%) (Auto) 5.6 % Eosinophils (%) (Auto) 6.8 % Basophils (%) (Auto) 1.1 % Neutrophils # (Auto) 51.2 TH/MM3 Lymphocytes # (Auto) 2.5 TH/MM3 Monocytes # (Auto) 3.5 TH/MM3 Eosinophils # (Auto) 4.2 TH/MM3 Basophils # (Auto) 0.7 TH/MM3 CBC Comment AUTO DIFF Differential Total Cells 100 Counted Neutrophils % (Manual) 60 % Band Neutrophils % 18 % Lymphocytes % 5 % Monocytes % 6 % Eosinophils % 11 % Neutrophils # (Manual) 48.5 TH/MM3 Differential Comment FINAL DIFF MANUAL Toxic Granulation 1+ Toxic Vacuolation PRESENT Platelet Estimate NORMAL Platelet Morphology Comment NORMAL Sodium Level 134 MEQ/L Potassium Level 4.2 MEQ/L Chloride Level 97 MEQ/L Carbon Dioxide Level 24.9 MEQ/L Anion Gap 12 MEQ/L Blood Urea Nitrogen 6 MG/DL Creatinine 0.68 MG/DL Estimat Glomerular Filtration 114 ML/MIN Rate Random Glucose 173 MG/DL Calcium Level 10.1 MG/DL Administered Medications Medications (Trade) Dose Ordered Sig/Joecline Route PRN Reason Start Time Stop Time Status Last Admin Dose Admin Docusate Sodium (Colace) 100 mg BID PRN PO CONSTIPATION 02/14/17 20:30 02/16/17 16:38 Sodium Chloride (NS Flush) 2 ml BID IV FLUSH 02/14/17 21:00 02/25/17 08:46 Heparin Sodium (Porcine) (Heparin Inj) 5,000 units Q12H SQ 02/14/17 22:00 02/25/17 11:36 Finasteride (Proscar) 5 mg DAILY PO 02/15/17 09:00 02/25/17 08:46 Pravastatin Sodium (Pravachol) 20 mg DAILY PO CM 02/15/17 09:00 02/25/17 08:45 Famotidine (Pepcid) 20 mg BID PO 02/15/17 21:00 02/25/17 08:45 Multi-Ingredient Mouthwash/Gargle (Magic Mouthwash Adult Liq) 5 ml QID SWISH-SWAL 02/18/17 09:00 02/25/17 17:02 Lisinopril (Prinivil) 10 mg BID PO 02/18/17 21:00 02/25/17 08:56 Ciprofloxacin (Cipro) 750 mg Q12HR PO 02/20/17 13:00 03/01/17 12:00 02/25/17 08:45 Amlodipine Besylate (Norvasc) 5 mg BID PO 02/21/17 09:00 02/25/17 08:45 Gabapentin (Neurontin) 300 mg TID PRN PO PAIN 1 TO 10 AND/OR AGITATION 02/21/17 08:00 02/21/17 14:03 Oxycodone/ Acetaminophen (Percocet 5-325 Mg) 2 tab Q4H PRN PO PAIN SCALE 4 TO 10 02/21/17 18:15 02/23/17 09:01 Gabapentin (Neurontin) 600 mg TID PO 02/22/17 09:00 02/25/17 12:28 Carbamazepine (TEGretol) 200 mg Q12HR PO 02/22/17 09:00 02/25/17 08:45 Potassium Chloride (KCl) 20 meq Q12HR PO 02/22/17 21:00 02/25/17 08:45 Ondansetron HCl (Zofran Odt) 8 mg Q4H PRN PO NAUSEA 02/23/17 12:00 02/24/17 09:28 Metoclopramide HCl 5 mg 5 mg Q8H IV PUSH 02/23/17 12:00 02/25/17 12:29 Dextrose/Sodium Chloride (D5W-1/2 NS 1000 ml Inj) 1,000 ml @ 84 mls/hr [id number] IV 02/23/17 12:00 02/24/17 23:45 Amoxicillin/ Clavulanate Potassium (Augmentin 400 Mg/5 ml Liq) 400 mg Q8HR PO 02/25/17 15:00 03/01/17 12:00 02/25/17 15:59 Objective Remarks GENERAL: Weak and appears to be approaching last months of life. SKIN: Warm and dry. HEAD: Normocephalic. EYES: No scleral icterus. No injection or drainage. NECK: Supple, trachea midline. No JVD or lymphadenopathy firm lesion over left anterior tongue. LYMPHATIC: No adenopathy. CARDIOVASCULAR: Regular rate and rhythm without murmurs. RESPIRATORY: Breath sounds decreased at bases. GASTROINTESTINAL: Abdomen soft, non-tender, nondistended. EXTREMITIES: No cyanosis, or edema. MUSCULOSKELETAL: severe muscle wasting. NEUROLOGICAL: profound global weakness. PSYCHIATRIC: simple understanding of events. Assessment/Plan Plan 1. 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 He is not a candidate for surgery or chemotherapy. radiation oncology consult pending and given performance status I am not optimistic that radiation would be helpful and he would need additional testing such as CT of abd, bx of tongue etc. Given poor performance status -Karnofsky 30, I doubt that he will be a candidate for any therapy. I have placed a consult with Hospice. Alvaro Flores MD Feb 25, 2017 17:16
--- NOTE | 2017-02-25 19:01 | HHI.PR ---
Subjective Remarks 76 YOWM with RLL cavitary lesion, DM,HTN feels better No fever no chills Had Bronch, bx RLL Has mucosal thickening and erythema RLL bronchus Bronchial bx negative Cytology Features consistant with NSCLC Objective Vital Signs Vital Signs Date Time Temp Pulse Resp B/P Pulse Ox O2 Delivery O2 Flow Rate FiO2 02/25/17 16:00 97.7 123 15 139/63 94 02/25/17 12:00 98.9 113 15 133/76 94 02/25/17 09:10 94 21 02/25/17 09:00 97 Nasal Cannula 2.00 02/25/17 08:00 99.2 105 15 126/57 93 02/25/17 04:40 98.8 100 19 145/80 94 02/24/17 23:45 97.9 110 20 150/80 94 02/24/17 23:15 92 Nasal Cannula 3.00 02/24/17 23:00 109 02/24/17 21:28 Nasal Cannula 2.00 02/24/17 20:40 97.7 118 20 159/81 93 I/O 02/24/17 02/24/17 02/24/17 02/25/17 02/25/17 02/25/17 06:59 14:59 22:59 06:59 14:59 22:59 Intake Total 450 ml 480 ml 400 ml 450 ml 956 ml Output Total 500 ml 300 ml 400 ml 300 ml Balance -50 ml 180 ml 0 ml 150 ml 956 ml Intake Oral 450 ml 480 ml 400 ml 450 ml IV Total 956 ml Output Urine Total 500 ml 300 ml 400 ml 300 ml # Voids 1 # Bowel Movements 0 2 1 1 1 Result Diagram: 02/25/17 1111 02/25/17 1111 Objective Remarks GENERAL: MBMN WM,NAD SKIN: Warm and dry. HEAD: Normocephalic. EYES: No scleral icterus. No injection or drainage. NECK: Supple, trachea midline. No JVD or lymphadenopathy. CARDIOVASCULAR: Regular rate and rhythm without murmurs, gallops, or rubs. RESPIRATORY: Breath sounds equal bilaterally. No accessory muscle use. GASTROINTESTINAL: Abdomen soft, non-tender, nondistended. MUSCULOSKELETAL: No cyanosis, or edema. BACK: Nontender without obvious deformity. No CVA tenderness. A/P Assessment and Plan RLL Cavitary lesion, --NSCLC on cytology COPD DM HTN PLAN: Abx per ID Sputum PCR ENT evaluated pt for growth on the tongue Oncology following Hospice consulted Henri Harrison MD Feb 25, 2017 19:01
[2017-02-26] VITALS: BP 135/80; PULSE 115; RESP 20; TEMP 98.1; O2SAT 94
[2017-02-26] MEDS: METOCLOPRAMIDE HCL 10 MG/2 ML VIAL IV PUSH SCH ×2 (03:49→10:49)
[2017-02-26] MEDS: HYDROmorphone HCL PF 1 MG/ML VIAL IV PUSH PRN ×3 (03:50→14:28)
[2017-02-26 05:00] VITALS: BP 158/70; PULSE 113; RESP 19; TEMP 98.8; O2SAT 93
[2017-02-26] MEDS: AMOXICIL-CLAVU 400 MG/5 ML LIQ 100 ML BTL PO SCH ×2 (05:49→14:00)
[2017-02-26] MEDS: INSULIN ASPART SUPPLEMENTAL SCALE SQ SCH ×2 (06:01→10:51)
[2017-02-26 08:12] VITALS: BP 176/81; PULSE 119; RESP 20; TEMP 97.9; O2SAT 89
[2017-02-26] MEDS: amLODIPine BESYLATE 5 MG TAB PO SCH ×2 (08:42→08:53)
[2017-02-26] MEDS: LISINOPRIL 10 MG TAB PO SCH ×2 (08:42→08:53)
[2017-02-26] MEDS: SODIUM CHLORIDE 0.9% FLUSH 10 ML FLUSH IV FLUSH SCH (08:42)
[2017-02-26] MEDS: GABAPENTIN 300 MG CAP PO SCH ×2 (08:43→08:52)
[2017-02-26] MEDS: HEPARIN SODIUM - SQ 10,000 UNITS/ML VIAL SQ SCH (08:46)
[2017-02-26] MEDS: PRAVASTATIN SOD 20 MG TAB PO SCH (08:49)
[2017-02-26] MEDS: NYSTAT/DIPHENHY/LIDO MOUTHWASH (Adult) 120ML SWISH-SWAL SCH ×2 (08:49→10:43)
[2017-02-26] MEDS: FAMOTIDINE 20 MG TAB PO SCH (08:49)
[2017-02-26] MEDS: carBAMazepine 200 MG TAB PO SCH (08:49)
[2017-02-26] MEDS: POTASSIUM CHLORIDE 20 MEQ CONTROLLED RELEASE TAB PO SCH (08:49)
[2017-02-26] MEDS: FINASTERIDE 5 MG TAB PO SCH (08:49)
[2017-02-26] MEDS: CIPROFLOXACIN 750 MG TAB PO SCH (08:50)
--- NOTE | 2017-02-26 08:55 | HHI.PR ---
Subjective Remarks still pain with swallow some does not want pills Objective Vital Signs Date Time Temp Pulse Resp B/P Pulse Ox O2 Delivery O2 Flow Rate FiO2 02/26/17 08:12 97.9 119 20 176/81 89 02/26/17 05:00 98.8 113 19 158/70 93 02/26/17 04:01 Nasal Cannula 2.00 Humidified 02/26/17 00:00 98.1 115 20 135/80 94 02/25/17 23:18 Nasal Cannula 2.00 02/25/17 21:54 111 02/25/17 20:45 98.9 119 20 138/77 93 02/25/17 16:00 97.7 123 15 139/63 94 02/25/17 12:00 98.9 113 15 133/76 94 02/25/17 09:10 94 21 02/25/17 09:00 97 Nasal Cannula 2.00 I/O 02/25/17 02/25/17 02/25/17 02/26/17 02/26/17 02/26/17 06:59 14:59 22:59 06:59 14:59 22:59 Intake Total 450 ml 956 ml 500 ml 600 ml Output Total 300 ml 200 ml 400 ml Balance 150 ml 956 ml 300 ml 200 ml Intake Oral 450 ml 500 ml 600 ml IV Total 956 ml Output Urine Total 300 ml 200 ml 400 ml # Voids 1 2 # Bowel Movements 1 1 0 Result Diagram: 02/25/17 1111 02/25/17 1111 Procedures Bronchoscopy 8th Objective Remarks awake alert speech clear some weak left hand extensors fingers Assessment and Plan Assessment and Plan imp this am appears pain only with swallow he cannot give me straight answer on that try tegretol and inc gabapentin 600 tid watch and make sure not too sleepy on it may be in some part a glossopharyngeal neuralgia i dw rads yest no mass base of skull or sphenoid process seen can we just bx tongue? 02/25/17 pain seems a bit better will check cbz level dc dil and may inc neurontin nsclca oob PT 02/26/17 will dc cbz and neurontin i dw him we could give him stronger narcotics if he wants but will likley hasten his does not want feeding tube resigned to dying from ca he will dw daughter RooneyPavan MD Feb 26, 2017 08:55
--- NOTE | 2017-02-26 09:19 | HHI.PR ---
Subjective Remarks Patient alert and oriented. Has remained afebrile. Hospice consult pending. Patient refusing oral medication Objective Vital Signs Date Time Temp Pulse Resp B/P Pulse Ox O2 Delivery O2 Flow Rate FiO2 02/26/17 08:12 97.9 119 20 176/81 89 02/26/17 05:00 98.8 113 19 158/70 93 02/26/17 04:01 Nasal Cannula 2.00 Humidified 02/26/17 00:00 98.1 115 20 135/80 94 02/25/17 23:18 Nasal Cannula 2.00 02/25/17 21:54 111 02/25/17 20:45 98.9 119 20 138/77 93 02/25/17 16:00 97.7 123 15 139/63 94 02/25/17 12:00 98.9 113 15 133/76 94 02/25/17 09:10 94 21 I/O 02/25/17 02/25/17 02/25/17 02/26/17 02/26/17 02/26/17 07:00 15:00 23:00 07:00 15:00 23:00 Intake Total 450 ml 956 ml 500 ml 600 ml Output Total 300 ml 200 ml 400 ml Balance 150 ml 956 ml 300 ml 200 ml Intake Oral 450 ml 500 ml 600 ml IV Total 956 ml Output Urine Total 300 ml 200 ml 400 ml # Voids 1 2 # Bowel Movements 1 1 0 Result Diagram: 02/25/17 1111 02/25/17 1111 Procedures Bronchoscopy 8th Objective Remarks GENERAL: Alert and cooperative SKIN: Warm and dry. Mass noted on tongue HEAD: Normocephalic. EYES: No scleral icterus. No injection or drainage. NECK: Supple, trachea midline. No JVD or lymphadenopathy. CARDIOVASCULAR: Regular rate and rhythm without murmurs, gallops, or rubs. RESPIRATORY: Breath sounds equal bilaterally. No accessory muscle use. GASTROINTESTINAL: Abdomen soft, non-tender, nondistended. MUSCULOSKELETAL: No cyanosis, or edema. BACK: Nontender without obvious deformity. No CVA tenderness. Medications and IVs Current Medications Medications (Trade) Dose Ordered Sig/Joceline Route Start Time Stop Time Status Last Admin (Tylenol) 650 mg Q4H PRN PO 02/14/17 20:30 (Colace) 100 mg BID PRN PO 02/14/17 20:30 02/16/17 16:38 (NS Flush) 2 ml UNSCH PRN IV FLUSH 02/14/17 20:30 (NS Flush) 2 ml BID IV FLUSH 02/14/17 21:00 02/25/17 21:16 (Heparin Inj) 5,000 units Q12H SQ 02/14/17 22:00 02/26/17 08:46 (Narcan Inj) 0.4 mg UNSCH PRN IV 02/14/17 20:30 (Proscar) 5 mg DAILY PO 02/15/17 09:00 02/25/17 08:46 (Glucophage) 500 mg BIDPC PO 02/15/17 09:00 Hold (Pravachol) 20 mg DAILY PO 02/15/17 09:00 02/25/17 08:45 (D50w (Vial) Inj) 50 ml UNSCH PRN IV 02/15/17 10:15 (Glucagon Inj) 1 mg UNSCH PRN OTHER 02/15/17 10:15 (Pepcid) 20 mg BID PO 02/15/17 21:00 02/25/17 21:17 (Magic Mouthwash Adult Liq) 5 ml QID SWISH-SWAL 02/18/17 09:00 02/25/17 21:17 (Prinivil) 10 mg BID PO 02/18/17 21:00 02/25/17 21:17 (Cipro) 750 mg Q12HR PO 02/20/17 13:00 03/01/17 12:00 02/25/17 21:16 (Norvasc) 5 mg BID PO 02/21/17 09:00 02/25/17 21:17 (Percocet 5-325 Mg) 2 tab Q4H PRN PO 02/21/17 18:15 02/23/17 09:01 (KCl) 20 meq Q12HR PO 02/22/17 21:00 02/25/17 21:16 (Zofran Odt) 8 mg Q4H PRN PO 02/23/17 12:00 02/24/17 09:28 Metoclopramide HCl 5 mg 5 mg Q8H IV PUSH 02/23/17 12:00 02/26/17 03:49 (D5W-1/2 NS 1000 ml Inj) 1,000 ml @ 84 mls/hr [id number] IV 8/12/17 12:00 02/25/17 22:45 (Dilaudid Pf Inj) 0.5 mg Q4H PRN IV PUSH 02/24/17 08:45 02/26/17 08:55 (Augmentin 400 Mg/5 ml Liq) 400 mg Q8HR PO 02/25/17 15:00 03/01/17 12:00 02/26/17 05:49 Assessment and Plan Problem List: (1) Cavitary lesion of lung Status: Acute Plan: Pulmonary consulted and managing On augmentin Right lower love cavity mass. Sputum culture ordered with heavy normal growth Bronchoscopy done Cytology Features consistant with NSCLC (2) Sepsis Status: Acute Plan: ID consulted and following. Hematology consulted and following. On augmentin (3) Hypertension Status: Acute Plan: blood pressure elevated at 176/81 . Metoprolol added however patient is not taking oral medication. Vasotec added PRN (4) Diabetes mellitus Status: Acute Plan: Blood sugars ordered AC and HS. Metformin on hold. SS ordered as needed (5) HLD (hyperlipidemia) Status: Acute Plan: Continue statin. (6) Tongue abnormality Status: Acute Plan: Left sided facial discomfort. Tongue mass noted. ENT consultation MRI with no acute findings. (7) Trigeminal neuralgia of left side of face Status: Acute Plan: Neurology consulted and following. Gabapentin added with no noticeable change in discomfort. Pain medication increased last night per Dr. Norton (8) Hypokalemia Status: Acute Plan: resolved potassium 4.2 continue replacement Assessment and Plan Assessment and plan discussed with Dr. Norton Discussed Condition With Nursing Discharge Planning Hospice consult in place Physician Attestation I and the [employer]IR[employer] have both examined this patient and reviewed this note and I agree with these findings and plan of care. Malcolm Norton DO Problem Qualifiers (1) Sepsis: Qualified Code: A41.9 - Sepsis, due to unspecified organism Cira Eldridge [employer] Feb 26, 2017 09:18
[2017-02-26] MEDS ORDERED: ENALAPRILAT 1.25 MG/ML VIAL IV PUSH PRN (09:30)
[2017-02-26] MEDS ORDERED: METOPROLOL SUCCINATE 25 MG EXTENDED RELEASE TAB PO ONE (09:30)
[2017-02-26] MEDS: DEXT 5%-NACL 0.45% 1000 ML INJ 1,000 ML IV SCH (10:51)
[2017-02-26 11:04] VITALS: PULSE 113
[2017-02-26 11:44] VITALS: O2SAT 94
[2017-02-26 12:00] VITALS: BP 172/77; PULSE 118; RESP 20; TEMP 98.2; O2SAT 95
--- NOTE | 2017-02-26 19:38 | HHI.DS ---
Discharge Summary Admission Date Feb 14, 2017 at 17:52 Discharge Date: Feb 26, 2017 Admitting Diagnosis cavitary lesion, sepsis (1) Non-small cell carcinoma of lung Procedures Bronchoscopy 8th Brief History Patient is a 76-year-old male presents to the emergency department for evaluation of "shakiness" and pain on left side of face. She states she's been treated with multiple antibiotics over the last few months for multiple infections. He had infection in the right ear, left ear, lung infection, urinary tract infection. She states that he was recently treated for otitis externa the left ear with antibiotics. He reports left-sided facial pain and submandibular pain and swelling. He denies any shortness of breath. He denies any chest pain. No abdominal pain. No nausea, vomiting, diarrhea. He denies any urinary symptoms. He has history of hypertension, hyperlipidemia, diabetes. Patient denies any other complaints at this time. He states he may have run a fever over the past few days due to chills. CBC/BMP: 02/25/17 1111 02/25/17 1111 Significant Findings Laboratory Tests Test 02/24/17 02/24/17 02/25/17 07:11 09:15 11:11 White Blood Count 51.5 TH/MM3 62.2 TH/MM3 (4.0-11.0) (4.0-11.0) Hemoglobin 12.2 GM/DL 11.7 GM/DL (13.0-17.0) (13.0-17.0) Hematocrit 38.0 % 35.8 % (39.0-51.0) (39.0-51.0) Mean Corpuscular Hemoglobin 26.4 PG 26.7 PG (27.0-34.0) (27.0-34.0) Sodium Level 134 MEQ/L 134 MEQ/L (136-145) (136-145) Potassium Level 3.4 MEQ/L (3.5-5.1) Chloride Level 96 MEQ/L 97 MEQ/L (98-107) (98-107) Blood Urea Nitrogen 6 MG/DL (7-18) 6 MG/DL (7-18) Creatinine 0.55 MG/DL (0.60-1.30) Random Glucose 108 MG/DL 173 MG/DL (74-106) (74-106) Urine Protein 30 mg/dL (NEG-TRACE) Urine Ketones 80 mg/dL (NEG) Urine Mucus FEW /lpf (OCC) Red Blood Count 4.40 MIL/MM3 (4.50-5.90) Neutrophils (%) (Auto) 82.5 % (16.0-70.0) Lymphocytes (%) (Auto) 4.0 % (9.0-44.0) Eosinophils (%) (Auto) 6.8 % (0.0-4.0) Neutrophils # (Auto) 51.2 TH/MM3 (1.8-7.7) Monocytes # (Auto) 3.5 TH/MM3 (0-0.9) Eosinophils # (Auto) 4.2 TH/MM3 (0-0.4) Basophils # (Auto) 0.7 TH/MM3 (0-0.2) Band Neutrophils % 18 % (0-6) Lymphocytes % 5 % (9-44) Eosinophils % 11 % (0-4) Neutrophils # (Manual) 48.5 TH/MM3 (1.8-7.7) Toxic Granulation 1+ (NORMAL) Toxic Vacuolation PRESENT (NONE SEEN) Imaging Last [address] 02/24/17 0000 Signed Impressions: Service Date/Time: Friday, February 24, 2017 16:12 - CONCLUSION: Stable exam without evidence of acute process. No evidence of acute infarct, hemorrhage, mass or edema. Dane Hicks MD Head CT 02/24/17 0000 Signed Impressions: Service Date/Time: Friday, February 24, 2017 06:06 - CONCLUSION: No acute intracranial abnormality. Alban Chatman MD PE at Discharge GENERAL: Alert and cooperative SKIN: Warm and dry. Mass noted on tongue HEAD: Normocephalic. EYES: No scleral icterus. No injection or drainage. NECK: Supple, trachea midline. No JVD or lymphadenopathy. CARDIOVASCULAR: Regular rate and rhythm without murmurs, gallops, or rubs. RESPIRATORY: Breath sounds equal bilaterally. No accessory muscle use. GASTROINTESTINAL: Abdomen soft, non-tender, nondistended. MUSCULOSKELETAL: No cyanosis, or edema. BACK: Nontender without obvious deformity. No CVA tenderness. Hospital Course Patient is a 76-year-old male presents to the emergency department for evaluation of "shakiness" and pain on left side of face. He had infection in the right ear, left ear, lung infection, urinary tract infection. He reports left-sided facial pain and submandibular pain and swelling. He denies any shortness of breath. He denies any chest pain. No abdominal pain. No nausea, vomiting, diarrhea. He denies any urinary symptoms. He has history of hypertension, hyperlipidemia, diabetes. During ;his hospital course he was followed by Hematology, pulmonolgoy, neurology, and ID. He had a bronchoscopy during his hospitalization which cytology came back positive for NSCLC. He was also found to have tongue mass which was not biopsied but believed also to be cancer. Per Hematology recommendations hospice was consulted. Patient was discharged to hospice care center. Discharge Disposition: Hospice/Med Facility Discharge Instructions DIET: Follow Instructions for: As Tolerated, No Restrictions Speech Therapy-Diet Recommenda: Pureed Additional Diet Instructions: DIET: PUREED TOLERATED Activities you can perform: See Additionl Instruction Additional Activity Instructio: ACTIVITY: UP TOLERATED Cira Eldridge Feb 26, 2017 19:37
[2017-02-27] MEDS ORDERED: METOPROLOL SUCCINATE 25 MG EXTENDED RELEASE TAB PO SCH (09:00)
== END 2017-02-26 15:12 | disposition hospice, inpatient (51) | DRG 853 ==
LOC: NEPE 12:38 → NEDA 17:52 → N05A 02-15 00:15
PROVIDERS: ADMIT Family Medicine; ATTEND Family Medicine
PROC: 0BBF8ZX Excision of Right Lower Lung Lobe, Via Natural or Artificial Opening Endoscopic, Diagnostic (ICD-10-PCS; principal; 2017-02-19 10:52)
DX: A41.9 Sepsis, unspecified organism (principal); J18.9 Pneumonia, unspecified organism; R65.21 Severe sepsis with septic shock; R64 Cachexia; C34.91 Malignant neoplasm of unspecified part of right bronchus or lung; E11.9 Type 2 diabetes mellitus without complications; C02.3 Malignant neoplasm of anterior two-thirds of tongue, part unspecified; N39.0 Urinary tract infection, site not specified; J44.0 Chronic obstructive pulmonary disease with (acute) lower respiratory infection; R13.10 Dysphagia, unspecified; I10 Essential (primary) hypertension; H60.90 Unspecified otitis externa, unspecified ear; R91.1 Solitary pulmonary nodule; Z79.84 Long term (current) use of oral hypoglycemic drugs; E78.5 Hyperlipidemia, unspecified; Z85.820 Personal history of malignant melanoma of skin; Z87.891 Personal history of nicotine dependence; G50.0 Trigeminal neuralgia; E87.6 Hypokalemia; N40.0 Benign prostatic hyperplasia without lower urinary tract symptoms; Z68.22 Body mass index [BMI] 22.0-22.9, adult
CPT/HCPCS: 70450; 70491; 70553; 71010; 71260; 76000; 76937; 80048; 80053; 80156; 80202; 81001; 82378; 82550; 82607; 82948; 83605; 84484; 85007; 85027; 85610; 85652; 85730; 86038; 86480; 86592; 87015; 87040; 87070; 87081; 87102; 87116; 87205; 87206; 87556; 87798; 87880; 88112; 88305; 90732; 93005; 94640; 94664; 96365; 96367; A9579; J0171; J1165; J1170; J1644; J1815; J2270; J2405; J2543; J2765; J3010; J3370; J7030; J7040; J7050; J7613; Q9967